=== PATIENT | male | born 1985 | race Caucasian/White ===

== ENCOUNTER 2016-12-16 15:10 | Emergency (ER) | payer SELFPAY ==
[2016-12-16] MEDS ORDERED: NORMAL SALINE 1000 ML 1,000 ML IV ONE (15:57)
[2016-12-16] MEDS ORDERED: PANTOPRAZOLE SODIUM 40 MG VIAL IV ONE (15:58)
--- NOTE | 2016-12-16 16:19 | ER Document Report ---
ED Medical Screen (RME) - General Chief Complaint: Black/Tarry Stools Stated Complaint: VOMITING,DIARRHEA Time Seen by Provider: 12/16/16 15:56 Mode of Arrival: Ambulatory Information source: Patient Notes: This is a 31-year-old male with a prior history of peptic ulcer disease and GI bleed who presents with black diarrhea and also coffee-ground emesis today. He states that yesterday he felt fine and had a normal bowel movement. Since awakening this morning he has had several black bowel movements as well as several episodes of coffee-ground emesis. He also has upper abdominal discomfort. He also feels lightheaded and dizzy when he stands. He states that in June 2014 he had a GI bleed and severe anemia and required 6 units blood transfusion. That was done at [facility]. At this time he takes no antacids or PPIs. He states that he occasionally will take an Aleve and did take Aleve a few days ago. Denies any other NSAIDs. He denies any recent alcohol. I have greeted and performed a rapid initial assessment of this patient. A comprehensive ED assessment and evaluation of the patient, analysis of test results and completion of the medical decision making process will be conducted by additional ED providers. TRAVEL OUTSIDE OF THE [place] IN LAST 30 DAYS: No - Related Data Allergies/Adverse Reactions: No Known Allergies Allergy (Verified 10/27/15 12:39) Past Medical History - Past Medical History Cardiac Medical History: Reports: Hx Hypertension Denies: Hx Heart Attack Pulmonary Medical History: Denies: Hx Asthma, Hx Bronchitis, Hx COPD, Hx Pneumonia Neurological Medical History: Denies: Hx Seizures Renal/ Medical History: Denies: Hx Peritoneal Dialysis GI Medical History: Reports: Hx Gastroesophageal Reflux Disease, Hx Ulcer Musculoskeltal Medical History: Denies Hx Arthritis, Reports Hx Musculoskeletal Trauma Psychiatric Medical History: Reports: Hx Bipolar Disorder, Hx Depression Traumatic Medical History: Reports: Hx Fractures - Immunizations Immunizations up to date: No Hx Diphtheria, Pertussis, Tetanus Vaccination: No Physical Exam - Vital signs Vitals: Temp Pulse Resp BP Pulse Ox 98.9 F 145 H 14 136/82 H 100 12/16/16 15:30 12/16/16 15:30 12/16/16 15:30 12/16/16 15:30 12/16/16 15:30 - General In distress: None Notes: And conversant, no acute distress, somewhat pale. - Respiratory Respiratory status: No respiratory distress Breath sounds: Normal. No: Rales, Rhonchi, Wheezing - Cardiovascular Rhythm: Tachycardia Heart sounds: S1 appreciated, S2 appreciated - Abdominal Inspection: Normal Distension: No distension Bowel sounds: Normal Tenderness: Other - Mild epigastric tenderness to palpation Course - Re-evaluation Re-evalutation: 12/16/16 16:18 Noted to be significantly tachycardic with concern for active GI bleed he was taken straight to a bed on main side ED. - Vital Signs Vital signs: Temp Pulse Resp BP Pulse Ox 98.9 F 145 H 14 136/82 H 100 12/16/16 15:30 12/16/16 15:30 12/16/16 15:30 12/16/16 15:30 12/16/16 15:30
--- NOTE | 2016-12-16 16:23 | ER Document Report ---
ED General - General Chief Complaint: Black/Tarry Stools Stated Complaint: VOMITING,DIARRHEA Time Seen by Provider: 12/16/16 15:56 Mode of Arrival: Ambulatory Information source: Patient Notes: 31-year-old male history of alcohol abuse with GI bleed a few years ago requiring 6 units transfusion presents with complaints of rectal bleeding and vomiting blood. Patient denies any fevers admits to weakness, pt noted dark stools TRAVEL OUTSIDE OF THE [place] IN LAST 30 DAYS: No - HPI Onset: This morning Onset/Duration: Sudden Quality of pain: Cramping Severity: Mild Pain Level: 1 Associated symptoms: Weakness Exacerbated by: Denies Relieved by: Denies Similar symptoms previously: Yes Recently seen / treated by doctor: Yes - Related Data Allergies/Adverse Reactions: No Known Allergies Allergy (Verified 10/27/15 12:39) Past Medical History - General Information source: Patient - Social History Smoking Status: Never Smoker Cigarette use (# per day): No Chew tobacco use (# tins/day): No Smoking Education Provided: No Family History: DM, Hypertension, Other - History of thromboembolic disease - Past Medical History Cardiac Medical History: Reports: Hx Hypertension Denies: Hx Heart Attack Pulmonary Medical History: Denies: Hx Asthma, Hx Bronchitis, Hx COPD, Hx Pneumonia Neurological Medical History: Denies: Hx Seizures Renal/ Medical History: Denies: Hx Peritoneal Dialysis GI Medical History: Reports: Hx Gastroesophageal Reflux Disease, Hx Ulcer Musculoskeltal Medical History: Denies Hx Arthritis, Reports Hx Musculoskeletal Trauma Psychiatric Medical History: Reports: Hx Bipolar Disorder, Hx Depression Traumatic Medical History: Reports: Hx Fractures - Immunizations Immunizations up to date: No Hx Diphtheria, Pertussis, Tetanus Vaccination: No Review of Systems - Review of Systems Notes: PHYSICAL EXAMINATION: GENERAL: Well-appearing, well-nourished and in no acute distress. HEAD: Atraumatic, normocephalic. EYES: Pupils equal round and reactive to light, extraocular movements intact, sclera anicteric, conjunctiva are normal. ENT: Nares patent, oropharynx clear without exudates. Moist mucous membranes. NECK: Normal range of motion, supple without lymphadenopathy LUNGS: Breath sounds clear to auscultation bilaterally and equal. No wheezes rales or rhonchi. HEART: tachycardic 160s ABDOMEN: Soft, nontender, nondistended abdomen. No guarding, no rebound. No masses appreciated. Musculoskeletal: Normal range of motion, no pitting or edema. No cyanosis. NEUROLOGICAL: Cranial nerves grossly intact. Normal speech, normal gait. Normal sensory, motor exams PSYCH: Normal mood, normal affect. SKIN: Warm, Dry, normal turgor, no rashes or lesions noted. Physical Exam - Vital signs Vitals: Temp Pulse Resp BP Pulse Ox 98.9 F 145 H 14 136/82 H 100 12/16/16 15:30 12/16/16 15:30 12/16/16 15:30 12/16/16 15:30 12/16/16 15:30 Course - Re-evaluation Re-evalutation: 12/16/16 16:23 pt having obvious gi bleed given hixstory, 2 L ns bolused emergently, awaiting labs hr is 162 on arrival 12/16/16 16:56 [facility] paged for transfer 3 L of NS have been ordered , hemoccult is positive, protonix bolus and drip started 12/16/16 18:40 GI will consult 12/16/16 18:54 Dr Bocanegra will accept , awaiting room assignment, hr is now 96 - Vital Signs Vital signs: Temp Pulse Resp BP Pulse Ox 98.9 F 145 H 21 H 137/87 H 100 12/16/16 15:30 12/16/16 15:30 12/16/16 17:11 12/16/16 17:11 12/16/16 17:11 - Laboratory Result Diagrams: 12/16/16 16:15 12/16/16 16:15 Laboratory results interpreted by me: 12/16/16 12/16/16 16:15 16:15 WBC 17.9 H Plt Count 477 H Absolute Neutrophils 11.0 H Absolute Lymphocytes 5.4 H Carbon Dioxide 21 L BUN 42 H Calcium 11.1 H Total Protein 9.7 H Albumin 5.8 H Critical Care Note - Critical Care Note Total time excluding time spent on procedures (mins): 33 Comments: 33 minutes of critical care time spent in direct contact evaluating and reevaluating the patient, treating symptoms, reviewing labs and studies and speaking with family and consultants excluding any procedures Discharge - Discharge Clinical Impression: Tachycardia Gastrointestinal hemorrhage Qualifiers: GI bleed type/associated pathology: unspecified gastrointestinal hemorrhage type Qualified Code(s): K92.2 - Gastrointestinal hemorrhage, unspecified Condition: Stable Disposition: [facility]
[2016-12-16 16:29] LABS: ABSOLUTE BASOPHILS # (AUTO) 0.1 10^3/uL (0.0-0.2); ABSOLUTE EOSINOPHILS # (AUTO) 0.1 10^3/uL (0.0-0.6); ABSOLUTE LYMPHOCYTES (AUTO) 5.4 10^3/uL (0.5-4.7); ABSOLUTE MONOCYTES (AUTO) 1.4 10^3/uL (0.1-1.4); BASOPHILS % (AUTO) 0.3 % (0-2); EOSINOPHILS % (AUTO) 0.4 % (0-6); HEMATOCRIT 45.9 % (37.9-51.0); HEMOGLOBIN 15.8 g/dL (13.5-17.0); HGB HCT DIFFERENCE 1.5; LYMPHOCYTES % (AUTO) 29.9 % (13-45); MEAN CORPUSCULAR HEMOGLOBIN 32.5 pg (27.0-33.4); MEAN CORPUSCULAR HGB CONC 34.5 g/dL (32.0-36.0); MEAN CORPUSCULAR VOLUME 94 fl (80-97); MONOCYTES % (AUTO) 7.8 % (3-13); RED BLOOD COUNT 4.86 10^6/uL (4.35-5.55); SEGMENTED NEUTROPHILS % (AUTO) 61.6 % (42-78); WHITE BLOOD COUNT 17.9 10^3/uL (4.0-10.5)
[2016-12-16 16:44] LABS: PROTHROMBIN TIME 13.4 SEC (11.4-15.4)
[2016-12-16 16:53] LABS: ALANINE AMINOTRANSFERASE 32 U/L (21-72); ALBUMIN 5.8 g/dL (3.5-5.0); ALKALINE PHOSPHATASE 52 U/L (38-126); ANION GAP 18 (5-19); ASPARTATE AMINO TRANSFERASE 20 U/L (17-59); BILIRUBIN,DIRECT 0.3 mg/dL (0.0-0.4); BILIRUBIN,TOTAL 1.1 mg/dL (0.2-1.3); BLOOD UREA NITROGEN 42 mg/dL (7-20); CALCIUM 11.1 mg/dL (8.4-10.2); CARBON DIOXIDE 21 mmol/L (22-30); CHLORIDE 106 mmol/L (98-107); CREATININE RESULT 0.98 mg/dL (0.52-1.25); GLUCOSE 102 mg/dL (75-110); LIPASE 69.8 U/L (23-300); SODIUM 144.9 mmol/L (137-145); TOTAL PROTEIN 9.7 g/dL (6.3-8.2)
[2016-12-16] MEDS ORDERED: NORMAL SALINE 1000 ML 1,000 ML IV PRN (18:24)
[2016-12-16 20:04] VITALS: BP 142/96
--- NOTE | 2016-12-17 10:02 | EKG REPORT ---
SEVERITY:- ABNORMAL ECG - FAST SINUS ARRHYTHMIA, RATE [id number] PROBABLE LEFT ATRIAL ABNORMALITY INCOMPLETE RIGHT BUNDLE BRANCH BLOCK : Confirmed by: Светлана Jessica 17-Dec-2016 10:01:50
== END 2016-12-16 20:00 | disposition left against medical advice (07) ==
LOC: ER 15:10
DX: K92.2 Gastrointestinal hemorrhage, unspecified (principal); R00.0 Tachycardia, unspecified; R11.10 Vomiting, unspecified; R19.7 Diarrhea, unspecified; R53.1 Weakness
CPT/HCPCS: 93005; 99285; 96361; 96374; 86900; 86901; 36415; 86850; 83690; 85025; 85610; 85730; 82272; 80053; 93010; S0164; J7030

== ENCOUNTER 2017-01-17 02:33 | Emergency (ER) | payer SELFPAY ==
[2017-01-17 02:46] VITALS: BP 132/79
--- NOTE | 2017-01-17 08:38 | EKG REPORT ---
SEVERITY:- ABNORMAL ECG - SINUS RHYTHM PROBABLE LEFT ATRIAL ABNORMALITY INCOMPLETE RIGHT BUNDLE BRANCH BLOCK : Confirmed by: Светлана Jessica 17-Jan-2017 08:38:02
== END 2017-01-17 04:58 | disposition left against medical advice (07) ==
LOC: ER 02:33
DX: Z53.21 Procedure and treatment not carried out due to patient leaving prior to being seen by health care provider (principal)
CPT/HCPCS: 93005; 93010

== ENCOUNTER 2017-01-31 01:25 | Emergency (ER) | payer SELFPAY ==
[2017-01-31] MEDS ORDERED: NORMAL SALINE 1000 ML 1,000 ML IV ONE (01:47)
[2017-01-31] MEDS ORDERED: KETOROLAC TROMETHAMINE INJ/PF 30 MG/1 ML SDV IV ONE (01:47)
[2017-01-31] MEDS ORDERED: ONDANSETRON HCL INJ/PF 4 MG/2 ML SDV IV ONE (01:48)
--- NOTE | 2017-01-31 01:50 | ER Document Report ---
ED GI/ - General Chief Complaint: Lower Abdominal Pain Stated Complaint: LEFT SIDE PAIN Time Seen by Provider: 01/31/17 01:40 Notes: Patient is a 31-year-old male that comes emergency department for chief complaint of sharp left lower abdominal pain that started earlier tonight. He denies flank pain, nausea, vomiting, dysuria, discharge. He states he had a normal bowel movement earlier today. He denies fever. He denies history of kidney stones. Past medical history of hypertension, takes lisinopril daily. TRAVEL OUTSIDE OF THE [place] IN LAST 30 DAYS: No - Related Data Allergies/Adverse Reactions: No Known Allergies Allergy (Verified 10/27/15 12:39) Past Medical History - General Information source: Patient - Social History Smoking Status: Current Every Day Smoker Drug Abuse: Marijuana Lives with: Spouse/Significant other Family History: DM, Hypertension, Other - History of thromboembolic disease - Past Medical History Cardiac Medical History: Reports: Hx Hypertension Denies: Hx Heart Attack Pulmonary Medical History: Denies: Hx Asthma, Hx Bronchitis, Hx COPD, Hx Pneumonia Neurological Medical History: Denies: Hx Seizures Renal/ Medical History: Denies: Hx Peritoneal Dialysis GI Medical History: Reports: Hx Gastroesophageal Reflux Disease, Hx Ulcer Musculoskeltal Medical History: Denies Hx Arthritis, Reports Hx Musculoskeletal Trauma Psychiatric Medical History: Reports: Hx Bipolar Disorder, Hx Depression Traumatic Medical History: Reports: Hx Fractures - Immunizations Immunizations up to date: No Hx Diphtheria, Pertussis, Tetanus Vaccination: No Review of Systems - Review of Systems Constitutional: No symptoms reported EENT: No symptoms reported Cardiovascular: No symptoms reported Respiratory: No symptoms reported Gastrointestinal: See HPI Genitourinary: See HPI Male Genitourinary: No symptoms reported Musculoskeletal: No symptoms reported Skin: No symptoms reported Hematologic/Lymphatic: No symptoms reported Neurological/Psychological: No symptoms reported Physical Exam - Vital signs Vitals: Temp Pulse Resp BP Pulse Ox 98.9 F 99 20 124/80 99 01/31/17 01:30 01/31/17 01:30 01/31/17 01:30 01/31/17 01:30 01/31/17 01:30 Interpretation: Normal - General General appearance: Appears well, Alert - HEENT Head: Normocephalic, Atraumatic Eyes: Normal Pupils: PERRL - Respiratory Respiratory status: No respiratory distress Chest status: Nontender Breath sounds: Normal. No: Decreased air movement, Wheezing Chest palpation: Normal - Cardiovascular Rhythm: Regular. No: Tachycardia Heart sounds: Normal auscultation, S1 appreciated, S2 appreciated Murmur: No - Abdominal Inspection: Normal Distension: No distension Bowel sounds: Normal Tenderness: Tender - There is mild tenderness in the mid to left lower abdomen, no guarding, rigidity, or rebound tenderness Organomegaly: No organomegaly - Back Back: Normal, Nontender. No: Tender, CVA tenderness - Extremities General upper extremity: Normal inspection, Nontender, Normal color, Normal ROM , Normal temperature General lower extremity: Normal inspection, Nontender, Normal color, Normal ROM , Normal temperature, Normal weight bearing. No: Faisal's sign - Neurological Neuro grossly intact: Yes Cognition: Normal Orientation: AAOx4 Ernie Coma Scale Eye Opening: Spontaneous Ernie Coma Scale Verbal: Oriented Ernie Coma Scale Motor: Obeys Commands [place] Coma Scale Total: 15 Speech: Normal Motor strength normal: LUE, RUE, LLE, RLE Sensory: Normal - Psychological Associated symptoms: Normal affect, Normal mood - Skin Skin Temperature: Warm Skin Moisture: Dry Skin Color: Normal Course - Re-evaluation Re-evalutation: Patient also adds that he abuses [id number] medications, states he took 7 guaifenesin early this morning, but only took 50 mg of Benadryl tonight. He states he does this on a regular basis. He denies any other drug use except marijuana. Abdominal exam is unremarkable, no guarding, no rigidity, no evidence of acute abdomen. Tenderness is in the left lower quadrant and is mild. CBC, chemistry unremarkable, urinalysis did not show evidence of stone. Very low suspicion of any acute abnormality. Patient sleeping after given Toradol, IV fluids, Zofran. After he woke up he states he does feel better. Discussed potential risks of abusing [id number] medications or prescription medications, patient states he understands the risk that he will only take the prescribed doses. Asymptomatic on re-evaluation. Unsure of exact cause of symptoms, could be related to medications, either way no evidence of acute abdomen at this time. Discussed follow-up, return precautions, patient states understanding and agreement. - Vital Signs Vital signs: Temp Pulse Resp BP Pulse Ox 97.5 F 96 18 118/76 97 01/31/17 03:47 01/31/17 03:47 07/14/17 03:47 01/31/17 03:47 01/31/17 03:47 - Laboratory Result Diagrams: 01/31/17 02:10 01/31/17 02:10 Laboratory results interpreted by me: 01/31/17 02:10 Chloride 112 H Carbon Dioxide 19 L Discharge - Discharge Clinical Impression: Abdominal pain Qualifiers: Abdominal location: lower abdomen, unspecified Qualified Code(s): R10.30 - Lower abdominal pain, unspecified Condition: Stable Disposition: HOME, SELF-CARE Additional Instructions: No concerning abnormalities are found on your workup and examination tonight. Do not take more than recommended doses on any medication, prescribed or over the counter. Follow up with Primary Care. Return to the ED for any concerning symptoms - returned or worsening abdominal pain, vomiting, etc.
[2017-01-31 02:28] LABS: ABSOLUTE EOSINOPHILS # (AUTO) 0.2 10^3/uL (0.0-0.6); ABSOLUTE LYMPHOCYTES (AUTO) 3.5 10^3/uL (0.5-4.7); ABSOLUTE NEUT (AUTO) 5.2 10^3/uL (1.7-8.2); BASOPHILS % (AUTO) 0.5 % (0-2); EOSINOPHILS % (AUTO) 2.1 % (0-6); HEMATOCRIT 43.8 % (37.9-51.0); HEMOGLOBIN 14.3 g/dL (13.5-17.0); HGB HCT DIFFERENCE -0.9; LYMPHOCYTES % (AUTO) 35.2 % (13-45); MEAN CORPUSCULAR HEMOGLOBIN 30.9 pg (27.0-33.4); MEAN CORPUSCULAR HGB CONC 32.7 g/dL (32.0-36.0); MEAN CORPUSCULAR VOLUME 94 fl (80-97); RED BLOOD COUNT 4.64 10^6/uL (4.35-5.55); RED CELL DISTRIBUTION WIDTH 12.3 % (11.5-14.0); SEGMENTED NEUTROPHILS % (AUTO) 52.2 % (42-78); WHITE BLOOD COUNT 9.9 10^3/uL (4.0-10.5)
[2017-01-31 02:38] LABS: APPEARANCE,URINE CLEAR; BILIRUBIN,URINE NEGATIVE (NEGATIVE); GLUCOSE, URINE NEGATIVE (NEGATIVE); KETONES,URINE NEGATIVE (NEGATIVE); LEUKOCYTE ESTERASE,URINE NEGATIVE (NEGATIVE); NITRITE,URINE NEGATIVE (NEGATIVE); PROTEIN,URINE NEGATIVE (NEGATIVE); URINE SPECIFIC GRAVITY 1.005; UROBILINOGEN,URINE NEGATIVE mg/dL (<2.0)
[2017-01-31 02:41] LABS: ALANINE AMINOTRANSFERASE 39 U/L (21-72); ALBUMIN 4.3 g/dL (3.5-5.0); ALKALINE PHOSPHATASE 78 U/L (38-126); ANION GAP 6 (5-19); ASPARTATE AMINO TRANSFERASE 22 U/L (17-59); BILIRUBIN,DIRECT 0.3 mg/dL (0.0-0.4); BILIRUBIN,TOTAL 0.4 mg/dL (0.2-1.3); BLOOD UREA NITROGEN 10 mg/dL (7-20); CALCIUM 9.6 mg/dL (8.4-10.2); CARBON DIOXIDE 19 mmol/L (22-30); CHLORIDE 112 mmol/L (98-107); GLUCOSE 84 mg/dL (75-110); POTASSIUM 4.6 mmol/L (3.6-5.0); SODIUM 137.3 mmol/L (137-145); TOTAL PROTEIN 7.2 g/dL (6.3-8.2)
[2017-01-31 03:49] VITALS: BP 118/76
== END 2017-01-31 03:47 | disposition home or self-care (01) ==
LOC: ER 01:25
DX: R10.32 Left lower quadrant pain (principal); F17.200 Nicotine dependence, unspecified, uncomplicated; I10 Essential (primary) hypertension
CPT/HCPCS: 99284; 96361; 96374; 96375; 36415; 85025; 80053; 81001; J1885; J2405; J7030

== ENCOUNTER 2017-02-13 19:32 | Emergency (ER) | payer SELFPAY ==
[2017-02-13] MEDS ORDERED: PROCHLORPERAZINE EDISYLATE INJ 10 MG/2 ML VIAL IV ONE (20:45)
[2017-02-13] MEDS ORDERED: DIPHENHYDRAMINE HCL 50 MG/ML VIAL IV ONE (20:46)
[2017-02-13] MEDS ORDERED: KETOROLAC TROMETHAMINE INJ/PF 30 MG/1 ML SDV IV ONE (20:46)
--- NOTE | 2017-02-13 20:47 | ER Document Report ---
ED Headache - General Chief Complaint: Headache Stated Complaint: HEADACHE Time Seen by Provider: 02/13/17 19:57 Notes: Patient is a 31-year-old male without significant past medical history who presents with acute onset of a headache. Patient is a very poor historian, often does not directly answer questions. He states that today he had an acute onset of feeling like something "popped in the back of my head". States this started immediately prior to him coming to the emergency department, approximately 1-1/2-2 hours prior to my assessment. He denies history of similar symptoms in the past. At this time he notes a dull, constant aching pain to the left temporal parietal area of his scalp. Nothing improves or worsens his pain. He has not seen a primary doctor regarding today's concerns. He denies any associated nausea, vomiting, fever or neck pain. TRAVEL OUTSIDE OF THE [place] IN LAST 30 DAYS: No - Related Data Allergies/Adverse Reactions: No Known Allergies Allergy (Verified 10/27/15 12:39) Past Medical History - General Information source: Patient - Social History Smoking Status: Current Every Day Smoker Frequency of alcohol use: None Drug Abuse: Marijuana Lives with: Alone Family History: DM, Hypertension, Other - History of thromboembolic disease - Past Medical History Cardiac Medical History: Reports: Hx Hypertension Denies: Hx Heart Attack Pulmonary Medical History: Denies: Hx Asthma, Hx Bronchitis, Hx COPD, Hx Pneumonia Neurological Medical History: Denies: Hx Seizures Renal/ Medical History: Denies: Hx Peritoneal Dialysis GI Medical History: Reports: Hx Gastroesophageal Reflux Disease, Hx Ulcer Musculoskeltal Medical History: Denies Hx Arthritis, Reports Hx Musculoskeletal Trauma Psychiatric Medical History: Reports: Hx Bipolar Disorder, Hx Depression Traumatic Medical History: Reports: Hx Fractures - Immunizations Immunizations up to date: No Hx Diphtheria, Pertussis, Tetanus Vaccination: No Review of Systems - Review of Systems Notes: Constitutional: Negative for fever. HENT: Negative for sore throat. Eyes: Negative for visual changes. Cardiovascular: Negative for chest pain. Respiratory: Negative for shortness of breath. Gastrointestinal: Negative for abdominal pain, vomiting or diarrhea. Genitourinary: Negative for dysuria. Musculoskeletal: Negative for back pain. Skin: Negative for rash. Neurological: Positive for headaches, negative for weakness or numbness. 10 point ROS negative except as marked above and in HPI. Physical Exam - Vital signs Vitals: Temp Pulse Resp BP Pulse Ox 98.8 F 116 H 17 123/93 H 97 02/13/17 19:49 02/13/17 19:49 02/13/17 19:49 02/13/17 19:49 02/13/17 19:49 Interpretation: Tachycardic Notes: PHYSICAL EXAMINATION: GENERAL: Well-appearing, well-nourished and in no acute distress. HEAD: Atraumatic, normocephalic. EYES: Pupils equal round and reactive to light, extraocular movements intact, sclera anicteric, conjunctiva are normal. ENT: nares patent, oropharynx clear without exudates. Moist mucous membranes. NECK: Normal range of motion, supple without lymphadenopathy LUNGS: Breath sounds clear to auscultation bilaterally and equal. No wheezes rales or rhonchi. HEART: Regular rate and rhythm without murmurs ABDOMEN: Soft, nontender, normoactive bowel sounds. No guarding, no rebound. No masses appreciated. EXTREMITIES: Normal range of motion, no pitting or edema. No cyanosis. NEUROLOGICAL: Face symmetric. Tongue protrudes midline. Extraocular motions intact. Pupils are 2 mm and equally reactive. Normal speech, normal gait. 5 out of 5 strength in both the distal and proximal upper and lower extremities bilaterally. Sensation is grossly intact throughout. Finger to nose testing normal. Pronator drift normal. PSYCH: Blunt affect, tangential historian SKIN: Warm, Dry, normal turgor, no rashes or lesions noted. Course - Re-evaluation Re-evalutation: 02/13/17 20:46 Patient is a very poor historian who complains of an acute onset of a headache. He is very difficult to obtain history from, does not directly answer my questions but it appears that the headache did reach maximal intensity within several minutes. He denies a headache similar to this in the past although does not appear to be in any significant amount of distress. He has no focal neurologic deficits on examination. Given his report, will obtain a stat CT of the head. If this is negative I will not pursue lumbar puncture as patient reports that his symptoms started less than 2 hours prior to arrival in the emergency department and he called EMS immediately after onset making a sensitivity of the CT scan acceptable to exclude a subarachnoid hemorrhage. If this is normal will treat with a migraine cocktail and reassess. 02/13/17 21:53 Patient has had relief of his headache. Head CT is normal. He remains without any neurologic. At this time will discharge with return precautions and follow- up recommendations. Verbal discharge instructions given a the bedside and opportunity for questions given. Medication warnings reviewed. Patient is in agreement with this plan and has verbalized understanding of return precautions and the need for primary care follow-up in the next 24-72 hours. - Vital Signs Vital signs: Temp Pulse Resp BP Pulse Ox 98.3 F 116 H 19 107/78 99 02/13/17 21:56 02/13/17 19:49 02/13/17 22:01 02/13/17 21:56 02/13/17 22:01 - Diagnostic Test Radiology reviewed: Image reviewed, Reports reviewed Radiology results interpreted by me: 02/13/17 21:53 CT head: No acute intracranial bleed Discharge - Discharge Clinical Impression: Headache Qualifiers: Headache type: unspecified Headache chronicity pattern: acute headache Intractability: not intractable Qualified Code(s): R51 - Headache Condition: Good Disposition: HOME, SELF-CARE Additional Instructions: You have been seen in the Emergency Department (ED) for a headache. Please use Tylenol (acetaminophen) or Motrin (ibuprofen) as needed for symptoms, but only as written on the box. As we have discussed, please follow up with your primary care doctor as soon as possible regarding today's ED visit and your headache symptoms. Call your doctor or return to the ED if you have a worsening headache, sudden and severe headache, confusion, slurred speech, facial droop, weakness or numbness in any arm or leg, extreme fatigue, or other symptoms that concern you.
--- NOTE | 2017-02-13 21:35 | RADIOLOGY REPORT (SQ) ---
EXAM DESCRIPTION: CT HEAD WITHOUT COMPLETED DATE/TIME: 02/13/2017 9:05 pm REASON FOR STUDY: headache COMPARISON: August 2014 TECHNIQUE: Axial images acquired through the brain without intravenous contrast. Images reviewed wi th bone, brain and subdural windows. Images stored on PACS. All CT scanners at this facility use dose modulation, iterative reconstruction, and/or weight based d osing when appropriate to reduce radiation dose to as low as reasonably achievable (ALARA). [facility]: Dose Right [facility]: CareDose [facility]: Dose Right [facility]: Teradose 4D [facility]: Magiq RADIATION DOSE: Up-to-date CT equipment and radiation dose reduction techniques were employed. CTDIv ol: 49.0 mGy. DLP: 881 mGy-cm. mGy. LIMITATIONS: None. FINDINGS: VENTRICLES: Normal size and contour. CEREBRUM: No masses. No hemorrhage. No midline shift. Normal beckham/white matter differentiation. N o evidence for acute infarction. CEREBELLUM: No masses. No hemorrhage. No alteration of density. No evidence for acute infarction. EXTRAAXIAL SPACES: No fluid collections. No masses. ORBITS AND GLOBE: No intra- or extraconal masses. Normal contour of globe without masses. CALVARIUM: No fracture. PARANASAL SINUSES: No fluid or mucosal thickening. SOFT TISSUES: No mass or hematoma. OTHER: No other significant finding. IMPRESSION: NORMAL BRAIN CT WITHOUT CONTRAST. TECHNICAL DOCUMENTATION: JOB ID: [id number] Quality ID # [id number]: Final reports with documentation of one or more dose reduction techniques (e.g., Au tomated exposure control, adjustment of the mA and/or kV according to patient size, use of iterative reconstruction technique) 2010 [employer]- All Rights Reserved
[2017-02-13 22:33] VITALS: BP 107/78
== END 2017-02-13 22:22 | disposition home or self-care (01) ==
LOC: ER 19:32
DX: R51 Headache (principal); F17.200 Nicotine dependence, unspecified, uncomplicated
CPT/HCPCS: 99284; 96374; 96375; 70450; J1200; J1885; J0780

== ENCOUNTER 2017-02-23 01:58 | Emergency (ER) | payer SELFPAY ==
[2017-02-23 02:51] LABS: ABSOLUTE EOSINOPHILS # (AUTO) 0.2 10^3/uL (0.0-0.6); ABSOLUTE LYMPHOCYTES (AUTO) 3.9 10^3/uL (0.5-4.7); ABSOLUTE MONOCYTES (AUTO) 1.3 10^3/uL (0.1-1.4); ABSOLUTE NEUT (AUTO) 5.5 10^3/uL (1.7-8.2); BASOPHILS % (AUTO) 0.4 % (0-2); EOSINOPHILS % (AUTO) 2.3 % (0-6); HEMOGLOBIN 16.4 g/dL (13.5-17.0); HGB HCT DIFFERENCE 1.2; LYMPHOCYTES % (AUTO) 35.8 % (13-45); MEAN CORPUSCULAR HGB CONC 34.2 g/dL (32.0-36.0); MEAN CORPUSCULAR VOLUME 94 fl (80-97); MONOCYTES % (AUTO) 11.5 % (3-13); RED BLOOD COUNT 5.13 10^6/uL (4.35-5.55)
[2017-02-23] MEDS ORDERED: NORMAL SALINE 1000 ML 1,000 ML IV ONE (02:52)
--- NOTE | 2017-02-23 02:52 | ER Document Report ---
ED GI/ - General Mode of Arrival: Ambulatory Information source: Patient TRAVEL OUTSIDE OF THE [place] IN LAST 30 DAYS: No - HPI Patient complains to provider of: Other <ABRAHAM DOOLEY - Last Filed: 02/23/17 05:33> <EKATERINA FALL - Last Filed: 02/23/17 05:50> - General Chief Complaint: Drug Abuse Stated Complaint: ABDOMINAL PAIN Time Seen by Provider: 02/23/17 02:34 Notes: Patient is a 31 year old male that presents to the emergency department today with complaints of abdominal pain. Patient admits to consuming large amounts of dextromethorphan and benadryl on a regular basis to get high. Patient states he did that today prior to this abdominal pain. Patient states that he has also noticed traces of bloody stool on toilet paper during bowel movements. Patient denies vomiting. (ABRAHAM DOOLEY) - Related Data Allergies/Adverse Reactions: No Known Allergies Allergy (Verified 10/27/15 12:39) Past Medical History - General Information source: Patient - Social History Smoking Status: Current Every Day Smoker Cigarette use (# per day): Yes Chew tobacco use (# tins/day): No Frequency of alcohol use: None Drug Abuse: Other - Dextromethorphan, benadryl Lives with: Family Family History: Reviewed & Not Pertinent, DM, Hypertension, Other - History of thromboembolic disease - Past Medical History Cardiac Medical History: Reports: Hx Hypertension GI Medical History: Reports: Hx Gastroesophageal Reflux Disease, Hx Ulcer Musculoskeltal Medical History: Reports Hx Musculoskeletal Trauma Psychiatric Medical History: Reports: Hx Bipolar Disorder, Hx Depression Traumatic Medical History: Reports: Hx Fractures - Immunizations Immunizations up to date: No Hx Diphtheria, Pertussis, Tetanus Vaccination: No <ABRAHAM DOOLEY - Last Filed: 02/23/17 05:33> Review of Systems - Review of Systems Constitutional: No symptoms reported EENT: No symptoms reported Cardiovascular: No symptoms reported Respiratory: No symptoms reported Gastrointestinal: See HPI, Abdominal pain, Blood streaked bowels. denies: Vomiting Genitourinary: No symptoms reported Male Genitourinary: No symptoms reported Musculoskeletal: No symptoms reported Skin: No symptoms reported Hematologic/Lymphatic: No symptoms reported Neurological/Psychological: No symptoms reported -: Yes All other systems reviewed and negative <ABRAHAM DOOLEY - Last Filed: 02/23/17 05:33> Physical Exam <ABRAHAM DOOLEY - Last Filed: 02/23/17 05:33> <EKATERINA FALL - Last Filed: 02/23/17 05:50> - Vital signs Vitals: Temp Resp Pulse Ox 98.1 F 17 99 02/23/17 02:26 02/23/17 02:26 02/23/17 02:26 - Notes Notes: PHYSICAL EXAM GENERAL: Alert, interacts well. No acute distress. HEAD: Normocephalic, atraumatic. EYES: Pupils equal, round, and reactive to light. Extraocular movements intact. Rotatory nystagmus. ENT: Oral mucosa moist, tongue midline. NECK: Full range of motion. Supple. Trachea midline. LUNGS: Clear to auscultation bilaterally, no wheezes, rales, or rhonchi. No respiratory distress. HEART: Mildly tachycardic, regular rhythm. No murmurs, gallops, or rubs. ABDOMEN: Mild left upper quadrant and epigastric tenderness with palpation. Non- distended. Bowel sounds present in all 4 quadrants. EXTREMITIES: Moves all 4 extremities spontaneously. No edema, radial and dorsalis pedis pulses 2/4 bilaterally. No cyanosis. NEUROLOGICAL: Alert and oriented x3. Normal speech. PSYCH: Normal affect, normal mood. SKIN: Warm, dry, normal turgor. No rashes or lesions noted. (MIAHABRAHAM) Course - Laboratory Result Diagrams: 02/23/17 02:30 02/23/17 02:30 <ABRAHAM DOOLEY - Last Filed: 02/23/17 05:33> - Laboratory Result Diagrams: 02/23/17 02:30 02/23/17 02:30 <EKATERINA FALL - Last Filed: 02/23/17 05:50> - Re-evaluation Re-evalutation: 02/23/17 05:47 CBC shows mild leukocytosis, CMP shows dehydration with a CO2 of 18 which is not surprising given his habit of using large amounts of dextromethorphan and Benadryl on a regular basis, lipase normal, urinalysis unremarkable, urine drug screen shows opiates PCP and marijuana, salicylates, acetaminophen and alcohol are all undetectable. After a period of rest, observation and hydration patient feels much better, he has been able to urinate without difficulty, nystagmus has resolved as has abdominal pain without any other interventions. Patient requests information on rehab as an outpatient, will be referred to [facility] and discharged to home. (EKATERINA FALL) - Vital Signs Vital signs: Temp Pulse Resp BP Pulse Ox 98.1 F 19 111/76 97 02/23/17 02:26 02/23/17 05:01 02/23/17 05:01 02/23/17 05:01 - Laboratory Laboratory results interpreted by me: 02/23/17 02/23/17 02:30 02:30 WBC 11.0 H Chloride 117 H Carbon Dioxide 18 L AST 16 L Salicylates < 1.0 L Acetaminophen < 10 L - EKG Interpretation by Me Additional EKG results interpreted by me: 02/23/17 05:48 EKG shows sinus tachycardia at a rate of 100, incomplete right bundle branch block, no ST segment elevations or depressions per my interpretation. (EKATERINA FALL) Discharge <ABRAHAM DOOLEY - Last Filed: 02/23/17 05:33> <EKATERINA FALL - Last Filed: 02/23/17 05:50> - Discharge Clinical Impression: Epigastric abdominal pain of unknown etiology Dextromethorphan overdose Qualifiers: Encounter type: initial encounter Injury intent: intentional self-harm Qualified Code(s): T48.3X2A - Poisoning by antitussives, intentional self-harm, initial encounter Diphenhydramine overdose Qualifiers: Encounter type: initial encounter Injury intent: intentional self-harm Qualified Code(s): T45.0X2A - Poisoning by antiallergic and antiemetic drugs, intentional self-harm, initial encounter Condition: Stable Disposition: HOME, SELF-CARE Additional Instructions: Please stop abusing medications, these can damage your heart. If you decide you would like help getting off drugs please follow-up with [facility]. Referrals: [facility] [Provider Group] - Follow up as needed Scribe Attestation: 02/23/17 05:50 I personally performed the services described in the documentation, reviewed and edited the documentation which was dictated to the scribe in my presence, and it accurately records my words and actions. (EKATERINA FALL) Scribe Documentation - Scribe Written by Scribe:: Robert Mayo, 02/23/2017 0542 acting as scribe for :: Maciej <ABRAHAM DOOLEY - Last Filed: 02/23/17 05:33>
[2017-02-23 03:18] LABS: ALANINE AMINOTRANSFERASE 31 U/L (21-72); ALBUMIN 4.8 g/dL (3.5-5.0); ALKALINE PHOSPHATASE 75 U/L (38-126); ANION GAP 7 (5-19); ASPARTATE AMINO TRANSFERASE 16 U/L (17-59); BILIRUBIN,DIRECT 0.3 mg/dL (0.0-0.4); BILIRUBIN,TOTAL 0.4 mg/dL (0.2-1.3); BLOOD UREA NITROGEN 12 mg/dL (7-20); CARBON DIOXIDE 18 mmol/L (22-30); CHLORIDE 117 mmol/L (98-107); CREATININE RESULT 1.13 mg/dL (0.52-1.25); GLUCOSE 109 mg/dL (75-110); POTASSIUM 4.4 mmol/L (3.6-5.0); SODIUM 142.4 mmol/L (137-145); TOTAL PROTEIN 7.9 g/dL (6.3-8.2)
[2017-02-23 03:19] LABS: ALCOHOL < 10 mg/dL (NONE DETECTED)
[2017-02-23 03:31] LABS: APPEARANCE,URINE CLEAR; BILIRUBIN,URINE NEGATIVE (NEGATIVE); GLUCOSE, URINE NEGATIVE (NEGATIVE); KETONES,URINE NEGATIVE (NEGATIVE); LEUKOCYTE ESTERASE,URINE NEGATIVE (NEGATIVE); NITRITE,URINE NEGATIVE (NEGATIVE); PROTEIN,URINE NEGATIVE (NEGATIVE); UROBILINOGEN,URINE NEGATIVE mg/dL (<2.0)
[2017-02-23 03:44] LABS: URINE BARBITURATES SCREEN NEGATIVE; URINE METHADONE SCREEN NEGATIVE; URINE OPIATES LOW UNCONFIRMED POSITIVE; URINE PHENCYCLIDINE SCREEN UNCONFIRMED POSITIVE
[2017-02-23 06:10] VITALS: BP 107/81
--- NOTE | 2017-02-23 08:06 | EKG REPORT ---
SEVERITY:- ABNORMAL ECG - SINUS TACHYCARDIA LEFT ATRIAL ABNORMALITY INCOMPLETE RIGHT BUNDLE BRANCH BLOCK : Confirmed by: David Stern MD 23-Feb-2017 08:05:50
== END 2017-02-23 06:20 | disposition home or self-care (01) ==
LOC: ER 01:58
DX: T48.3X2A Poisoning by antitussives, intentional self-harm, initial encounter (principal); T45.0X2A Poisoning by antiallergic and antiemetic drugs, intentional self-harm, initial encounter; E86.0 Dehydration; H55.00 Unspecified nystagmus; D72.829 Elevated white blood cell count, unspecified; R10.13 Epigastric pain; K92.1 Melena; R00.0 Tachycardia, unspecified; F17.210 Nicotine dependence, cigarettes, uncomplicated; I45.10 Unspecified right bundle-branch block; I10 Essential (primary) hypertension; Z87.19 Personal history of other diseases of the digestive system
CPT/HCPCS: 93005; 99284; 96360; 36415; 80307 ×4; 83690; 85025; 80053; 81001; 93010; J7030

== ENCOUNTER 2017-03-02 22:59 | Emergency (ER) | payer SELFPAY ==
--- NOTE | 2017-03-02 23:16 | ER Document Report ---
ED Substance Abuse / Acc. 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 He took 600 mg dextromethorphan 15 hours ago, 50 mg Benadryl 2 hours ago and smoked weed just prior to arrival. He said that this is strictly for recreational purposes and he does not want to hurt himself. [facility], but he is no longer going there. He has had multiple ER visits for similar ingestions of substances and he is often observed and discharged home. He denies chest pain, nausea, vomiting, abdominal pain, fevers, leg swelling, cough, back pain or headache. TRAVEL OUTSIDE OF THE [place] IN LAST 30 DAYS: No - Related Data Allergies/Adverse Reactions: No Known Allergies Allergy (Verified 10/27/15 12:39) Past Medical History - General Information source: Patient - Social History Smoking Status: Current Every Day Smoker Drug Abuse: Marijuana, Prescription drugs Family History: Reviewed & Not Pertinent, DM, Hypertension, Other - History of thromboembolic disease - Past Medical History Cardiac Medical History: Reports: Hx Hypertension Denies: Hx Heart Attack Pulmonary Medical History: Denies: Hx Asthma, Hx Bronchitis, Hx COPD, Hx Pneumonia Neurological Medical History: Denies: Hx Seizures Renal/ Medical History: Denies: Hx Peritoneal Dialysis GI Medical History: Reports: Hx Gastroesophageal Reflux Disease, Hx Ulcer Musculoskeltal Medical History: Denies Hx Arthritis, Reports Hx Musculoskeletal Trauma Psychiatric Medical History: Reports: Hx Bipolar Disorder, Hx Depression Traumatic Medical History: Reports: Hx Fractures - Immunizations Immunizations up to date: No Hx Diphtheria, Pertussis, Tetanus Vaccination: No Review of Systems - Review of Systems Notes: REVIEW OF SYSTEMS: CONSTITUTIONAL: -fevers, -chills EENT: -eye pain, -difficulty swallowing, -nasal congestion CARDIOVASCULAR:-chest pain, -syncope. RESPIRATORY: -cough, -SOB GASTROINTESTINAL: -abdominal pain, - nausea, -vomiting, -diarrhea GENITOURINARY: -dysuria, -hematuria MUSCULOSKELETAL: -back pain, -neck pain SKIN: -rash or skin lesions. HEMATOLOGIC: -easy bruising or bleeding. LYMPHATIC: -swollen, enlarged glands. NEUROLOGICAL: -altered mental status or loss of consciousness, -headache, - neurologic symptoms PSYCHIATRIC: -anxiety, -depression, +substance abuse ALL OTHER SYSTEMS REVIEWED AND NEGATIVE. Physical Exam - Vital signs Vitals: Resp BP Pulse Ox 24 H 150/104 H 96 03/02/17 23:04 03/02/17 23:04 03/02/17 23:04 - Notes Notes: PHYSICAL EXAMINATION: GENERAL: Well-appearing, well-nourished and in no acute distress. HEAD: Atraumatic, normocephalic. EYES: Pupils equal round and reactive to light, extraocular movements intact, sclera anicteric, conjunctiva are normal. ENT: nares patent, oropharynx clear without exudates. Moist mucous membranes. NECK: Normal range of motion, supple without lymphadenopathy LUNGS: Breath sounds clear to auscultation bilaterally and equal. No wheezes rales or rhonchi. HEART: Tachycardia. ABDOMEN: Soft, nontender, normoactive bowel sounds. No guarding, no rebound. No masses appreciated. EXTREMITIES: Normal range of motion, no pitting or edema. No cyanosis. NEUROLOGICAL: Cranial nerves grossly intact. Normal speech, normal gait. Normal sensory and motor exams. PSYCH: Normal mood, normal affect. SKIN: Warm, Dry, normal turgor, no rashes or lesions noted. Course - Re-evaluation Re-evalutation: Patient repeatedly denies any suicidal ideation and said that he only takes dextromethorphan and Benadryl to get high and because he is addicted. RUSSELL Bennett, spoke to poison control and they recommend supportive care with IV fluids and to monitor for urinary retention or altered mental status. Patient's tachycardia resolved after IV fluids and he feels much better. Once again, provided referral to [facility] for substance abuse counseling and detox. Given return precautions and he understands. - Vital Signs Vital signs: Temp Pulse Resp BP Pulse Ox 99.1 F 23 H 129/97 H 98 03/02/17 23:06 03/03/17 00:01 03/03/17 00:01 03/03/17 00:01 - Laboratory Result Diagrams: 03/02/17 23:28 03/02/17 23:28 Laboratory results interpreted by me: 03/02/17 23:28 Chloride 112 H Carbon Dioxide 16 L Direct Bilirubin 0.6 H Salicylates < 1.0 L Acetaminophen < 10 L - EKG Interpretation by Me EKG shows normal: Sinus rhythm, [place], Intervals, QRS Complexes, ST-T Waves Rate: Tachycardia [place]/QRS: RBBB When compared to previous EKG there are: No significant change Discharge - Discharge Clinical Impression: Substance abuse or dependence Condition: Stable Disposition: HOME, SELF-CARE Additional Instructions: OVERDOSE / INGESTION: You have taken more medication than you should have. After your evaluation and care, it is felt that your overdose is not likely to be harmful or of any significant consequences to you and you are being discharged. In the future, you should be careful not to take more medications than what is prescribed for you. Although your overdose does not seem to be of any danger to you at this time, if you develop any unusual or unexpected symptoms after your discharge, you should return to the Emergency Department immediately for re-evaluation. INSTRUCTIONS FOR HOME CARE FOLLOWING DRUG OVERDOSAGE: The doctor feels it's safe for you to go home. You will need to be observed. If charcoal and a laxative was given to you, expect some loose black stools soon. Take no medications unless approved by a physician, including alcohol. If drowsy, lie on your stomach or side for sleeping to avoid aspiration if vomiting occurs. Take only liquids by mouth until there is no more nausea. FOR THE OBSERVER: Observe the patient for the next 24 hours and call or go to the hospital if any of the following are noted: prolonged or repeated vomiting, difficulty in arousing, convulsions (seizures or fits), fever, persistent cough, breathing that is too slow or too rapid, or confused or bizarre behavior. If a counselling visit has been arranged, make sure the patient attends. Call the physician or poison control if you have questions. FOLLOW-UP CARE: If you have been referred to a physician for follow-up care, call the physician s office for an appointment as you were instructed or within the next two days. If you experience worsening or a significant change in your symptoms, notify the physician immediately or return to the Emergency Department at any time for re-evaluation. Referrals: [facility] [Outside] - Follow up as needed
--- NOTE | 2017-03-02 23:20 | EKG REPORT ---
SEVERITY:- ABNORMAL ECG - SINUS TACHYCARDIA MIKHAIL, CONSIDER BIATRIAL ABNORMALITIES INCOMPLETE RIGHT BUNDLE BRANCH BLOCK : Confirmed by: Светлана Jessica 02-Mar-2017 23:19:32
[2017-03-02 23:40] LABS: ABSOLUTE EOSINOPHILS # (AUTO) 0.1 10^3/uL (0.0-0.6); ABSOLUTE LYMPHOCYTES (AUTO) 2.5 10^3/uL (0.5-4.7); ABSOLUTE MONOCYTES (AUTO) 0.8 10^3/uL (0.1-1.4); ABSOLUTE NEUT (AUTO) 6.7 10^3/uL (1.7-8.2); BASOPHILS % (AUTO) 0.5 % (0-2); EOSINOPHILS % (AUTO) 1.2 % (0-6); HEMATOCRIT 44.7 % (37.9-51.0); HEMOGLOBIN 15.4 g/dL (13.5-17.0); HGB HCT DIFFERENCE 1.5; LYMPHOCYTES % (AUTO) 24.8 % (13-45); MEAN CORPUSCULAR HGB CONC 34.5 g/dL (32.0-36.0); MEAN CORPUSCULAR VOLUME 93 fl (80-97); MONOCYTES % (AUTO) 7.8 % (3-13); RED BLOOD COUNT 4.82 10^6/uL (4.35-5.55); SEGMENTED NEUTROPHILS % (AUTO) 65.7 % (42-78); WHITE BLOOD COUNT 10.3 10^3/uL (4.0-10.5)
[2017-03-02 23:53] LABS: ALANINE AMINOTRANSFERASE 32 U/L (21-72); ALBUMIN 4.7 g/dL (3.5-5.0); ALKALINE PHOSPHATASE 70 U/L (38-126); ANION GAP 12 (5-19); ASPARTATE AMINO TRANSFERASE 21 U/L (17-59); BILIRUBIN,DIRECT 0.6 mg/dL (0.0-0.4); BILIRUBIN,TOTAL 0.6 mg/dL (0.2-1.3); BLOOD UREA NITROGEN 14 mg/dL (7-20); CALCIUM 9.5 mg/dL (8.4-10.2); CARBON DIOXIDE 16 mmol/L (22-30); CHLORIDE 112 mmol/L (98-107); CREATININE RESULT 1.03 mg/dL (0.52-1.25); GLUCOSE 93 mg/dL (75-110); POTASSIUM 4.1 mmol/L (3.6-5.0); SODIUM 139.7 mmol/L (137-145); TOTAL PROTEIN 7.7 g/dL (6.3-8.2)
[2017-03-02 23:55] LABS: ALCOHOL < 10 mg/dL (NONE DETECTED)
[2017-03-03] MEDS: NORMAL SALINE 1000 ML 1,000 ML IV PRN ×2 (00:08→00:09)
[2017-03-03 00:52] LABS: APPEARANCE,URINE CLEAR; BILIRUBIN,URINE MODERATE (NEGATIVE); GLUCOSE, URINE NEGATIVE (NEGATIVE); KETONES,URINE NEGATIVE (NEGATIVE); LEUKOCYTE ESTERASE,URINE NEGATIVE (NEGATIVE); NITRITE,URINE NEGATIVE (NEGATIVE); PROTEIN,URINE NEGATIVE (NEGATIVE); URINE SPECIFIC GRAVITY 1.021; UROBILINOGEN,URINE NEGATIVE mg/dL (<2.0)
[2017-03-03 02:13] VITALS: BP 131/90
[2017-03-03 02:14] LABS: URINE BARBITURATES SCREEN NEGATIVE; URINE METHADONE SCREEN NEGATIVE; URINE OPIATES LOW NEGATIVE; URINE PHENCYCLIDINE SCREEN UNCONFIRMED POSITIVE
== END 2017-03-03 02:25 | disposition home or self-care (01) ==
LOC: ER 22:59
DX: F11.20 Opioid dependence, uncomplicated (principal); F13.20 Sedative, hypnotic or anxiolytic dependence, uncomplicated; R06.02 Shortness of breath; I45.10 Unspecified right bundle-branch block; R00.0 Tachycardia, unspecified; F17.200 Nicotine dependence, unspecified, uncomplicated
CPT/HCPCS: 93005; 99285; 96360; 36415; 80307 ×4; 85025; 80053; 81001; 93010; J7030

== ENCOUNTER 2017-03-18 01:46 | Emergency (ER) | payer SELFPAY ==
[2017-03-18] MEDS ORDERED: NORMAL SALINE 1000 ML 1,000 ML IV ONE (02:27)
[2017-03-18] MEDS ORDERED: LORAZEPAM INJ 2 MG/1 ML VIAL IV ONE (02:29)
[2017-03-18 03:10] LABS: ABSOLUTE BASOPHILS # (AUTO) 0.1 10^3/uL (0.0-0.2); ABSOLUTE EOSINOPHILS # (AUTO) 0.3 10^3/uL (0.0-0.6); ABSOLUTE LYMPHOCYTES (AUTO) 4.1 10^3/uL (0.5-4.7); ABSOLUTE NEUT (AUTO) 6.4 10^3/uL (1.7-8.2); APPEARANCE,URINE CLEAR; BASOPHILS % (AUTO) 0.5 % (0-2); BILIRUBIN,URINE NEGATIVE (NEGATIVE); EOSINOPHILS % (AUTO) 2.7 % (0-6); GLUCOSE, URINE NEGATIVE (NEGATIVE); HEMATOCRIT 43.5 % (37.9-51.0); HEMOGLOBIN 15.2 g/dL (13.5-17.0); HGB HCT DIFFERENCE 2.1; KETONES,URINE NEGATIVE (NEGATIVE); LEUKOCYTE ESTERASE,URINE NEGATIVE (NEGATIVE); LYMPHOCYTES % (AUTO) 34.6 % (13-45); MEAN CORPUSCULAR HEMOGLOBIN 32.1 pg (27.0-33.4); MEAN CORPUSCULAR HGB CONC 34.9 g/dL (32.0-36.0); MEAN CORPUSCULAR VOLUME 92 fl (80-97); MONOCYTES % (AUTO) 8.6 % (3-13); NITRITE,URINE NEGATIVE (NEGATIVE); PROTEIN,URINE NEGATIVE (NEGATIVE); RED BLOOD COUNT 4.74 10^6/uL (4.35-5.55); RED CELL DISTRIBUTION WIDTH 12.8 % (11.5-14.0); SEGMENTED NEUTROPHILS % (AUTO) 53.6 % (42-78); URINE SPECIFIC GRAVITY 1.005; UROBILINOGEN,URINE NEGATIVE mg/dL (<2.0)
[2017-03-18 03:15] LABS: ALANINE AMINOTRANSFERASE 32 U/L (21-72); ALBUMIN 4.8 g/dL (3.5-5.0); ALCOHOL < 10 mg/dL (NONE DETECTED); ALKALINE PHOSPHATASE 82 U/L (38-126); ANION GAP 7 (5-19); ASPARTATE AMINO TRANSFERASE 19 U/L (17-59); BILIRUBIN,DIRECT 0.4 mg/dL (0.0-0.4); BILIRUBIN,TOTAL 0.4 mg/dL (0.2-1.3); BLOOD UREA NITROGEN 17 mg/dL (7-20); CALCIUM 9.8 mg/dL (8.4-10.2); CARBON DIOXIDE 23 mmol/L (22-30); CHLORIDE 110 mmol/L (98-107); CREATININE RESULT 1.22 mg/dL (0.52-1.25); GLUCOSE 109 mg/dL (75-110); MAGNESIUM 1.5 mg/dL (1.6-2.3); POTASSIUM 4.1 mmol/L (3.6-5.0); SODIUM 140.4 mmol/L (137-145); TOTAL PROTEIN 7.5 g/dL (6.3-8.2)
[2017-03-18 03:24] LABS: URINE BARBITURATES SCREEN NEGATIVE; URINE METHADONE SCREEN NEGATIVE; URINE OPIATES LOW NEGATIVE; URINE PHENCYCLIDINE SCREEN UNCONFIRMED POSITIVE
--- NOTE | 2017-03-18 04:39 | ER Document Report ---
ED General - General Chief Complaint: Possible Overdose Stated Complaint: POSSIBLE MUSCLE CRAMPING Time Seen by Provider: 03/18/17 02:14 Mode of Arrival: Ambulatory Information source: Patient TRAVEL OUTSIDE OF THE [place] IN LAST 30 DAYS: No - HPI Notes: Patient is a 31-year-old male presents emergency department with report of a long-standing history of dextromethorphan and Benadryl abuse and he states that he took 60 tablets of dextromethorphan 2 days ago and 250 mg of Benadryl, and now he states he feels anxious and nervous and has muscle twitches. 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 The patient is noted on exam to stop all of his twitches every time he speaks. Patient denies any other Ingestion or overdose. He states he overdoses recreational and he denies any suicidal or homicidal ideation. He reports no chest pain or difficulty breathing. - Related Data Allergies/Adverse Reactions: No Known Allergies Allergy (Verified 10/27/15 12:39) Past Medical History - General Information source: Patient - Social History Smoking Status: Unknown if Ever Smoked Frequency of alcohol use: None Drug Abuse: Other - Benadryl and dextromethorphan abuse.. denies: Cocaine Family History: Reviewed & Not Pertinent, DM, Hypertension, Other - History of thromboembolic disease Patient has suicidal ideation: No Patient has homicidal ideation: No - Past Medical History Cardiac Medical History: Reports: Hx Hypertension Denies: Hx Heart Attack Pulmonary Medical History: Denies: Hx Asthma, Hx Bronchitis, Hx COPD, Hx Pneumonia Neurological Medical History: Denies: Hx Seizures Renal/ Medical History: Denies: Hx Peritoneal Dialysis GI Medical History: Reports: Hx Gastroesophageal Reflux Disease, Hx Ulcer Musculoskeltal Medical History: Denies Hx Arthritis, Reports Hx Musculoskeletal Trauma Psychiatric Medical History: Reports: Hx Bipolar Disorder, Hx Depression Traumatic Medical History: Reports: Hx Fractures - Immunizations Immunizations up to date: No Hx Diphtheria, Pertussis, Tetanus Vaccination: No Review of Systems - Review of Systems Notes: REVIEW OF SYSTEMS: CONSTITUTIONAL : Denies fever, chills, or sweats. Denies recent illness. EENT: Denies eye, ear, throat, or mouth pain or symptoms. Denies nasal or sinus congestion or discharge. Denies throat, tongue, or mouth swelling or difficulty swallowing. CARDIOVASCULAR: Denies chest pain. Denies palpitations or racing or irregular heart beat. Denies ankle edema. RESPIRATORY: Denies cough, cold, or chest congestion. Denies shortness of breath, difficulty breathing, or wheezing. GASTROINTESTINAL: Denies abdominal pain or distention. Denies nausea, vomiting , or diarrhea. Denies blood in vomitus, stools, or per rectum. Denies black, tarry stools. Denies constipation. GENITOURINARY: Denies difficulty urinating, painful urination, burning, frequency, blood in urine, or discharge. MUSCULOSKELETAL: Denies back or neck pain or stiffness. Denies joint pain or swelling. SKIN: Denies rash, lesions or sores. HEMATOLOGIC : Denies easy bruising or bleeding. LYMPHATIC: Denies swollen, enlarged glands. NEUROLOGICAL: Denies passing out or loss of consciousness. Denies headache. Denies weakness or paralysis or loss of use of either side. Denies problems with gait or speech. Denies sensory loss, numbness, or tingling. Denies seizures. Patient reports occasional muscle twitches. PSYCHIATRIC: Denies anxiety or stress. Denies depression, suicidal ideation, or homicidal ideation. ALL OTHER SYSTEMS REVIEWED AND NEGATIVE. Dictation was performed using [employer] voice recognition software Physical Exam - Vital signs Vitals: Temp Pulse Resp BP Pulse Ox 98.6 F 129 H 20 159/103 H 97 03/18/17 01:58 03/18/17 01:58 03/18/17 01:58 03/18/17 01:58 03/18/17 01:58 - Notes Notes: PHYSICAL EXAMINATION: GENERAL: Anxious, well-nourished and in no acute distress. HEAD: Atraumatic, normocephalic. EYES: Pupils equal round and reactive to light, extraocular movements intact, sclera anicteric, conjunctiva are normal. ENT: Nares patent, oropharynx clear without exudates. Slightly dry mucous membranes. NECK: Normal range of motion, supple without lymphadenopathy LUNGS: Breath sounds clear to auscultation bilaterally and equal. No wheezes rales or rhonchi. HEART: Regular rhythm without murmurs. Tachycardic 125. ABDOMEN: Soft, nontender, nondistended abdomen. No guarding, no rebound. No masses appreciated. Musculoskeletal: Normal range of motion, no pitting or edema. No cyanosis. NEUROLOGICAL: Cranial nerves grossly intact. Normal speech, normal gait. Normal sensory, motor exams PSYCH: Normal mood, normal affect. SKIN: Warm, Dry, normal turgor, no rashes or lesions noted. Course - Re-evaluation Re-evalutation: 03/18/17 04:37 Patient was given 2 mg of IV Ativan and 1 L normal saline. Patient was watched on the cardiac cath rn and his tachycardia resolved. There is no ectopy. No arrhythmia. On repeat exam there were no muscle twitches, the patient was sleeping and resting comfortably. His heart rate was 96 and his blood pressure was 142/76. There is no further evidence of anxiety or tachycardia. I counseled patient at length about the need to discontinue his abuse of dextromethorphan and Benadryl. The patient was told he also needed to get a ride home. Patient does not meet IVC criteria, as he denies suicidal or homicidal ideation. No evidence for electrolyte imbalance or anemia or other drug toxidrome. 03/18/17 04:42 - Vital Signs Vital signs: Temp Pulse Resp BP Pulse Ox 98.6 F 129 H 21 H 159/103 H 94 03/18/17 01:58 03/18/17 01:58 03/18/17 03:02 03/18/17 01:58 03/18/17 03:02 - Laboratory Result Diagrams: 03/18/17 02:45 03/18/17 02:45 Laboratory results interpreted by me: 03/18/17 03/18/17 02:45 02:45 WBC 12.0 H Chloride 110 H Magnesium 1.5 L Discharge - Discharge Clinical Impression: Anxiety Overdose Qualifiers: Encounter type: initial encounter Injury intent: accidental or unintentional Qualified Code(s): T50.901A - Poisoning by unspecified drugs, medicaments and biological substances, accidental (unintentional), initial encounter Condition: Stable Disposition: HOME, SELF-CARE Instructions: Anxiety ([facility]) Additional Instructions: Stop abusing dextromethorphan and Benadryl. Do not take Ativan and drive. Prescriptions: Lorazepam [Ativan 1 mg Tablet] 1 mg PO Q8HP PRN #5 tablet PRN Reason: Forms: Return to Work Referrals: JANNY OSEGUERA MD [Primary Care Provider] - Follow up as needed
[2017-03-18 07:38] VITALS: BP 133/91
== END 2017-03-18 08:00 | disposition home or self-care (01) ==
LOC: ER 01:46
DX: T50.901A Poisoning by unspecified drugs, medicaments and biological substances, accidental (unintentional), initial encounter (principal); F41.9 Anxiety disorder, unspecified; R00.0 Tachycardia, unspecified; R25.3 Fasciculation; Z82.0 Family history of epilepsy and other diseases of the nervous system; I10 Essential (primary) hypertension
CPT/HCPCS: 99284; 96361; 96374; 36415; 80307 ×2; 83735; 85025; 80053; 81001; J2060; J7030

== ENCOUNTER 2017-03-19 10:38 | Emergency (ER) | payer SELFPAY ==
--- NOTE | 2017-03-19 11:03 | ER Document Report ---
ED Medical Screen (RME) - General Chief Complaint: Psych Problem Stated Complaint: PSYCH EVAL Time Seen by Provider: 03/19/17 10:52 Notes: Grandmother called mobile crisis today because patient has been falling down and hallucinating. Patient states that he abuses Benadryl and dextromethorphan and has been doing this for about 12 years. Patient states he is already taken about 20 dextromethorphan tablets today and approximately 10 Benadryl today. He denies alcohol or other drug use. He states he does occasionally smoke marijuana but has not smoked recently. Patient states that he hears noises but no voices. However grandma states that he carries on conversations with people that are not in the room. Patient denies any type of visual hallucinations. TRAVEL OUTSIDE OF THE [place] IN LAST 30 DAYS: No - Related Data Allergies/Adverse Reactions: No Known Allergies Allergy (Verified 03/19/17 10:52) Past Medical History - Past Medical History Cardiac Medical History: Reports: Hx Hypertension Denies: Hx Heart Attack Pulmonary Medical History: Denies: Hx Asthma, Hx Bronchitis, Hx COPD, Hx Pneumonia Neurological Medical History: Denies: Hx Seizures Renal/ Medical History: Denies: Hx Peritoneal Dialysis GI Medical History: Reports: Hx Gastroesophageal Reflux Disease, Hx Ulcer Musculoskeltal Medical History: Denies Hx Arthritis, Reports Hx Musculoskeletal Trauma Psychiatric Medical History: Reports: Hx Bipolar Disorder, Hx Depression Traumatic Medical History: Reports: Hx Fractures - Immunizations Immunizations up to date: No Hx Diphtheria, Pertussis, Tetanus Vaccination: No Physical Exam - Vital signs Vitals: Temp Pulse Resp BP Pulse Ox 98.9 F 115 H 16 132/80 H 97 03/19/17 10:49 03/19/17 10:49 03/19/17 10:49 03/19/17 10:49 03/19/17 10:49 Course - Vital Signs Vital signs: Temp Pulse Resp BP Pulse Ox 98.9 F 115 H 16 132/80 H 97 03/19/17 10:49 03/19/17 10:49 03/19/17 10:49 03/19/17 10:49 03/19/17 10:49
[2017-03-19 11:26] LABS: ABSOLUTE EOSINOPHILS # (AUTO) 0.3 10^3/uL (0.0-0.6); ABSOLUTE LYMPHOCYTES (AUTO) 2.4 10^3/uL (0.5-4.7); ABSOLUTE MONOCYTES (AUTO) 0.6 10^3/uL (0.1-1.4); ABSOLUTE NEUT (AUTO) 4.7 10^3/uL (1.7-8.2); BASOPHILS % (AUTO) 0.4 % (0-2); EOSINOPHILS % (AUTO) 3.3 % (0-6); HEMATOCRIT 42.9 % (37.9-51.0); HEMOGLOBIN 14.9 g/dL (13.5-17.0); HGB HCT DIFFERENCE 1.8; MEAN CORPUSCULAR HEMOGLOBIN 32.1 pg (27.0-33.4); MEAN CORPUSCULAR HGB CONC 34.7 g/dL (32.0-36.0); MEAN CORPUSCULAR VOLUME 92 fl (80-97); MONOCYTES % (AUTO) 7.2 % (3-13); RED BLOOD COUNT 4.64 10^6/uL (4.35-5.55); RED CELL DISTRIBUTION WIDTH 12.8 % (11.5-14.0); SEGMENTED NEUTROPHILS % (AUTO) 59.1 % (42-78); WHITE BLOOD COUNT 7.9 10^3/uL (4.0-10.5)
[2017-03-19 11:50] LABS: ALANINE AMINOTRANSFERASE 30 U/L (21-72); ALBUMIN 4.8 g/dL (3.5-5.0); ALKALINE PHOSPHATASE 81 U/L (38-126); ANION GAP 10 (5-19); ASPARTATE AMINO TRANSFERASE 20 U/L (17-59); BILIRUBIN,DIRECT 0.7 mg/dL (0.0-0.4); BILIRUBIN,TOTAL 0.7 mg/dL (0.2-1.3); BLOOD UREA NITROGEN 11 mg/dL (7-20); CARBON DIOXIDE 24 mmol/L (22-30); CHLORIDE 109 mmol/L (98-107); CREATININE RESULT 0.96 mg/dL (0.52-1.25); GLUCOSE 68 mg/dL (75-110); POTASSIUM 4.1 mmol/L (3.6-5.0); SODIUM 142.7 mmol/L (137-145); TOTAL PROTEIN 7.4 g/dL (6.3-8.2)
--- NOTE | 2017-03-19 11:52 | EKG REPORT ---
SEVERITY:- ABNORMAL ECG - SINUS TACHYCARDIA LEFT ATRIAL ABNORMALITY RIGHT BUNDLE BRANCH BLOCK : Confirmed by: Светлана Jessica 19-Mar-2017 11:51:22
[2017-03-19 11:55] LABS: ALCOHOL < 10 mg/dL (NONE DETECTED)
[2017-03-19] MEDS: NORMAL SALINE 1000 ML 1,000 ML IV PRN ×2 (12:50→12:59)
--- NOTE | 2017-03-19 13:38 | ER Document Report ---
ED General - General Chief Complaint: Psych Problem Stated Complaint: PSYCH EVAL Time Seen by Provider: 03/19/17 10:52 TRAVEL OUTSIDE OF THE [place] IN LAST 30 DAYS: No - HPI Patient complains to provider of: Psychiatric evaluation Notes: Patient coming in for psychiatric evaluation. Patient was recently discharged from this facility after overdosing on dextromethorphan. Patient has a history of this patient at that time had positive PCP and his urine drug screen. Patient was brought in today for no psychiatric evaluation according to the person that brought him in the nurses report that patient was having hallucinations. Upon my evaluation patient denies any hallucinations auditory or visual. Patient states he has taken a lot of Robitussin today for the purpose of getting high. Patient inquires about drug detox. Patient denies any homicidal suicidal ideation. - Related Data Allergies/Adverse Reactions: No Known Allergies Allergy (Verified 03/19/17 10:52) Past Medical History - Social History Smoking Status: Unknown if Ever Smoked Family History: Reviewed & Not Pertinent, DM, Hypertension, Other - History of thromboembolic disease Patient has suicidal ideation: No Patient has homicidal ideation: No - Past Medical History Cardiac Medical History: Reports: Hx Hypertension Denies: Hx Heart Attack Pulmonary Medical History: Denies: Hx Asthma, Hx Bronchitis, Hx COPD, Hx Pneumonia Neurological Medical History: Denies: Hx Seizures Renal/ Medical History: Denies: Hx Peritoneal Dialysis GI Medical History: Reports: Hx Gastroesophageal Reflux Disease, Hx Ulcer Musculoskeltal Medical History: Denies Hx Arthritis, Reports Hx Musculoskeletal Trauma Psychiatric Medical History: Reports: Hx Bipolar Disorder, Hx Depression Traumatic Medical History: Reports: Hx Fractures - Immunizations Immunizations up to date: No Hx Diphtheria, Pertussis, Tetanus Vaccination: No Review of Systems - Review of Systems Constitutional: No symptoms reported EENT: No symptoms reported Cardiovascular: No symptoms reported Respiratory: No symptoms reported Gastrointestinal: No symptoms reported Genitourinary: No symptoms reported Male Genitourinary: No symptoms reported Musculoskeletal: No symptoms reported Skin: No symptoms reported Hematologic/Lymphatic: No symptoms reported Neurological/Psychological: Other - Overdosing to get high Physical Exam - Vital signs Vitals: Temp Pulse Resp BP Pulse Ox 98.9 F 115 H 16 132/80 H 97 03/19/17 10:49 03/19/17 10:49 03/19/17 10:49 03/19/17 10:49 03/19/17 10:49 Interpretation: Tachycardic - General General appearance: Appears well, Alert - HEENT Head: Normocephalic, Atraumatic Eyes: Normal Pupils: PERRL - Respiratory Respiratory status: No respiratory distress Chest status: Nontender Breath sounds: Normal Chest palpation: Normal - Cardiovascular Rhythm: Regular, Tachycardia Heart sounds: Normal auscultation Murmur: No - Abdominal Inspection: Normal Distension: No distension Bowel sounds: Normal Tenderness: Nontender Organomegaly: No organomegaly - Back Back: Normal, Nontender - Extremities General upper extremity: Normal inspection, Nontender, Normal color, Normal ROM , Normal temperature General lower extremity: Normal inspection, Nontender, Normal color, Normal ROM , Normal temperature, Normal weight bearing. No: Faisal's sign - Neurological Neuro grossly intact: Yes Cognition: Normal Orientation: AAOx4 Ernie Coma Scale Eye Opening: Spontaneous [place] Coma Scale Verbal: Oriented Ernie Coma Scale Motor: Obeys Commands [place] Coma Scale Total: 15 Speech: Normal Motor strength normal: LUE, RUE, LLE, RLE Sensory: Normal - Psychological Associated symptoms: Normal affect, Normal mood - Skin Skin Temperature: Warm Skin Moisture: Dry Skin Color: Normal Course - Re-evaluation Re-evalutation: 03/19/17 13:40 On evaluation patient does look to be high on his Robitussin. Patient is tachycardic consistent with the toxidrome for overdose of dextromethorphan. Patient was given IV fluids with response in his heart rate. Patient otherwise has improved his mental state. Patient will be monitored and will undergo a psychiatric evaluation. Patient otherwise denies homicidal suicidal ideation. More likely visual disturbances reported by karine William is that brought the patient in our likely due to his overdose of dextromethorphan. - Vital Signs Vital signs: Temp Pulse Resp BP Pulse Ox 98.9 F 115 H 16 132/80 H 97 03/19/17 10:49 03/19/17 10:49 03/19/17 10:49 03/19/17 10:49 03/19/17 10:49 - Laboratory Result Diagrams: 03/19/17 11:13 03/19/17 11:13 Laboratory results interpreted by me: 03/19/17 11:13 Chloride 109 H Glucose 68 L Direct Bilirubin 0.7 H Salicylates < 1.0 L Acetaminophen < 10 L Discharge - Discharge Clinical Impression: Overdose Qualifiers: Encounter type: subsequent encounter Injury intent: undetermined intent Qualified Code(s): T50.904D - Poisoning by unspecified drugs, medicaments and biological substances, undetermined, subsequent encounter Condition: Good Disposition: HOME, SELF-CARE Additional Instructions: Please follow-up with resources given. Please stop overdosing on medications. Referrals: [facility] [Provider Group] - Follow up as needed [facility] [Provider Group] - Follow up as needed
[2017-03-19 14:50] LABS: APPEARANCE,URINE CLEAR; BILIRUBIN,URINE NEGATIVE (NEGATIVE); GLUCOSE, URINE NEGATIVE (NEGATIVE); KETONES,URINE NEGATIVE (NEGATIVE); LEUKOCYTE ESTERASE,URINE NEGATIVE (NEGATIVE); NITRITE,URINE NEGATIVE (NEGATIVE); PROTEIN,URINE NEGATIVE (NEGATIVE); URINE SPECIFIC GRAVITY 1.004; UROBILINOGEN,URINE NEGATIVE mg/dL (<2.0)
--- NOTE | 2017-03-19 15:08 | ER Document Report ---
ED Psych Disorder / Suicide - General Chief Complaint: Psych Problem Stated Complaint: PSYCH EVAL Time Seen by Provider: 03/19/17 10:52 TRAVEL OUTSIDE OF THE [place] IN LAST 30 DAYS: No - HPI Notes: Patient presents to [facility] for possible drug intoxication and hallunications. Mobile crisis is with patient, reports she was called by grandmother, who he lives with due to hallunications. Grandmother reported to mobile crisis. Reports he was having conversations with people and falling down. Reports he takes Robotussin DXM 90 tablets "a day" since he was 18-19 years old. Reports he took 15 Robotussin tablets and 10 benadryl tablets today. Denies ETOH, reports THC and tobacco. Reports "yeah I hear things". Reports he hears sounds and bangs but not voices. Denies any visual hallunications. Denies suicidal and homicidal ideation. Patient presented confused on time line (this could be due to patient's back to back visits in less than 12 hours). He disclosed that he does want sobriety however states that he needs to go home to help take care of his mother. When it was questioned how patient would take care of his mother well using 90 tablets a day of Robitussin patient disclosed "that is just what I have been doing lately it is not every day." Patient stated he had "months and months" of sobriety but was unable to remember when that occurred. Patient had difficulty keeping his eyes open, when asked if he was still feeling the effects of the Robitussin he stated that he was sober. Patient states he is only having difficulty keeping his eyes open is because he is so tired. He disclosed he does not like to go to sleep while he is under the influence of Robitussin because he has bad dreams and it makes him "feel weird." Patient is semi-alert and orientated to person, place and circumstance. It is noted patient was overall orientated to time however had some difficulties because [facility] hours [facility]. Patient denies suicidal and homicidal ideation. Patient endorses auditory hallucinations. Patient is demonstrating behavior congruent with substance induced psychosis; having difficulty following conversation, staring off, poor eye contact. It is noted patient's thought processes were organized and overall linear however irrational due to substance abuse. Eye contact was poor. Intellectual abilities appear to be within the average range. Attention and concentration were poor. Insight, judgment, impulse control appears poor due to substance abuse. 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 Patient will be recommended to follow-up with outpatient services for his substance abuse treatment. Dr. Rodriguez was consulted on the care and management of this patient; attending physician is in agreement with recommendations and disposition per - Related Data Allergies/Adverse Reactions: No Known Allergies Allergy (Verified 03/19/17 10:52) Past Medical History - Social History Smoking Status: Unknown if Ever Smoked Family History: Reviewed & Not Pertinent, DM, Hypertension, Other - History of thromboembolic disease Patient has suicidal ideation: No Patient has homicidal ideation: No - Past Medical History Cardiac Medical History: Reports: Hx Hypertension Denies: Hx Heart Attack Pulmonary Medical History: Denies: Hx Asthma, Hx Bronchitis, Hx COPD, Hx Pneumonia Neurological Medical History: Denies: Hx Seizures Renal/ Medical History: Denies: Hx Peritoneal Dialysis GI Medical History: Reports: Hx Gastroesophageal Reflux Disease, Hx Ulcer Musculoskeltal Medical History: Denies Hx Arthritis, Reports Hx Musculoskeletal Trauma Psychiatric Medical History: Reports: Hx Bipolar Disorder, Hx Depression Traumatic Medical History: Reports: Hx Fractures - Immunizations Immunizations up to date: No Hx Diphtheria, Pertussis, Tetanus Vaccination: No Physical Exam - Vital signs Vitals: Temp Pulse Resp BP Pulse Ox 98.9 F 115 H 16 132/80 H 97 03/19/17 10:49 03/19/17 10:49 03/19/17 10:49 03/19/17 10:49 03/19/17 10:49 Course - Vital Signs Vital signs: Temp Pulse Resp BP Pulse Ox 98.9 F 115 H 16 132/80 H 97 03/19/17 10:49 03/19/17 10:49 03/19/17 10:49 03/19/17 10:49 03/19/17 10:49 - Laboratory Result Diagrams: 03/19/17 11:13 03/19/17 11:13 Laboratory results interpreted by me: 03/19/17 11:13 Chloride 109 H Glucose 68 L Direct Bilirubin 0.7 H Salicylates < 1.0 L Acetaminophen < 10 L Discharge - Discharge Clinical Impression: Overdose Qualifiers: Encounter type: subsequent encounter Injury intent: undetermined intent Qualified Code(s): T50.904D - Poisoning by unspecified drugs, medicaments and biological substances, undetermined, subsequent encounter Condition: Good Disposition: HOME, SELF-CARE Additional Instructions: Please follow-up with resources given. Please stop overdosing on medications. Referrals: [facility] [Provider Group] - Follow up as needed [facility] [Provider Group] - Follow up as needed
--- NOTE | 2017-03-19 15:09 | ER Document Report ---
Doctor's Note Notes: 03/19/17 15:08 The patient remains under the influence of the suspected dextromethorphan overdose and is trying to leave. He is somewhat combative. He does not remember speaking with the psych workers are less than 30 minutes ago. He will be physically restrained due to the risk of him leaving in his present state.
[2017-03-19 15:10] LABS: URINE BARBITURATES SCREEN NEGATIVE; URINE METHADONE SCREEN NEGATIVE; URINE OPIATES LOW NEGATIVE; URINE PHENCYCLIDINE SCREEN UNCONFIRMED POSITIVE
[2017-03-19 15:59] VITALS: BP 126/87
== END 2017-03-19 19:56 | disposition home or self-care (01) ==
LOC: ER 10:38
DX: T50.904D Poisoning by unspecified drugs, medicaments and biological substances, undetermined, subsequent encounter (principal); F16.229 Hallucinogen dependence with intoxication, unspecified; I10 Essential (primary) hypertension; K21.9 Gastro-esophageal reflux disease without esophagitis; Z78.1 Physical restraint status
CPT/HCPCS: 93005; 80307 ×4; 99284; 96360; 36415; 85025; 80053; 81001; 93010; J7030

== ENCOUNTER 2017-04-02 16:40 | Emergency (ER) | payer SELFPAY ==
[2017-04-02] MEDS ORDERED: NORMAL SALINE 1000 ML 1,000 ML IV ONE (17:43)
[2017-04-02] MEDS ORDERED: KETOROLAC TROMETHAMINE INJ/PF 30 MG/1 ML SDV IV ONE (17:44)
--- NOTE | 2017-04-02 17:46 | ER Document Report ---
ED Medical Screen (RME) - General Chief Complaint: Abdominal Pain Stated Complaint: ABDOMINAL PAIN Time Seen by Provider: 04/02/17 17:42 Mode of Arrival: Ambulatory Information source: Patient TRAVEL OUTSIDE OF THE [place] IN LAST 30 DAYS: No - HPI Patient complains to provider of: abd pain Onset: Other - pt states he as been addicted to dextro in robitussin and is trying to wean himself off -- developed LLQ abd pain earllier today but feels better now - Related Data Allergies/Adverse Reactions: No Known Allergies Allergy (Verified 04/02/17 16:51) Past Medical History - Social History Frequency of alcohol use: None Drug Abuse: Other - Past Medical History Cardiac Medical History: Reports: Hx Hypertension Denies: Hx Heart Attack Pulmonary Medical History: Denies: Hx Asthma, Hx Bronchitis, Hx COPD, Hx Pneumonia Neurological Medical History: Denies: Hx Seizures Renal/ Medical History: Denies: Hx Peritoneal Dialysis GI Medical History: Reports: Hx Gastroesophageal Reflux Disease, Hx Ulcer Musculoskeltal Medical History: Denies Hx Arthritis, Reports Hx Musculoskeletal Trauma Psychiatric Medical History: Reports: Hx Bipolar Disorder, Hx Depression Traumatic Medical History: Reports: Hx Fractures - Immunizations Immunizations up to date: No Hx Diphtheria, Pertussis, Tetanus Vaccination: No Physical Exam - Vital signs Vitals: Temp Pulse Resp BP Pulse Ox 98.8 F 107 H 18 145/95 H 98 04/02/17 16:51 04/02/17 16:51 04/02/17 16:51 04/02/17 16:51 04/02/17 16:51 Course - Vital Signs Vital signs: Temp Pulse Resp BP Pulse Ox 98.8 F 107 H 18 145/95 H 98 04/02/17 16:51 04/02/17 16:51 04/02/17 16:51 04/02/17 16:51 04/02/17 16:51
--- NOTE | 2017-04-02 18:41 | RADIOLOGY REPORT (SQ) ---
EXAM DESCRIPTION: ACUTE ABDOMEN SERIES COMPLETED DATE/TIME: 04/02/2017 6:33 pm REASON FOR STUDY: abd pain COMPARISON: Chest x-ray dated 07/13/2014 NUMBER OF VIEWS: Three views. TECHNIQUE: Frontal chest, supine abdomen and upright/decubitus abdomen radiographic images acquired. LIMITATIONS: None. FINDINGS: CHEST: Lungs clear of infiltrates. FREE AIR: None. No abnormal gas collections. BOWEL GAS PATTERN: There is a moderate amount of stool throughout the colon. No evidence of obstruct ion. CALCIFICATIONS: No suspicious calcifications. HARDWARE: None in the abdomen. SOFT TISSUES: No gross mass or suggestion of organomegaly. BONES: No acute fracture. No worrisome bone lesions. OTHER: No other significant finding. IMPRESSION: Constipation. No obstruction. TECHNICAL DOCUMENTATION: JOB ID: [id number] [employer]- All Rights Reserved
[2017-04-02 18:50] LABS: ABSOLUTE BASOPHILS # (AUTO) 0.1 10^3/uL (0.0-0.2); ABSOLUTE EOSINOPHILS # (AUTO) 0.1 10^3/uL (0.0-0.6); ABSOLUTE LYMPHOCYTES (AUTO) 2.3 10^3/uL (0.5-4.7); ABSOLUTE MONOCYTES (AUTO) 1.4 10^3/uL (0.1-1.4); ABSOLUTE NEUT (AUTO) 8.5 10^3/uL (1.7-8.2); BASOPHILS % (AUTO) 0.4 % (0-2); EOSINOPHILS % (AUTO) 0.9 % (0-6); HEMATOCRIT 46.6 % (37.9-51.0); HGB HCT DIFFERENCE 1.4; LYMPHOCYTES % (AUTO) 18.8 % (13-45); MEAN CORPUSCULAR HEMOGLOBIN 31.1 pg (27.0-33.4); MEAN CORPUSCULAR HGB CONC 34.3 g/dL (32.0-36.0); MEAN CORPUSCULAR VOLUME 91 fl (80-97); MONOCYTES % (AUTO) 11.3 % (3-13); RED BLOOD COUNT 5.16 10^6/uL (4.35-5.55); RED CELL DISTRIBUTION WIDTH 13.7 % (11.5-14.0); SEGMENTED NEUTROPHILS % (AUTO) 68.6 % (42-78); WHITE BLOOD COUNT 12.3 10^3/uL (4.0-10.5)
[2017-04-02 19:32] LABS: APPEARANCE,URINE SLIGHTLY-CLOUDY; BILIRUBIN,URINE NEGATIVE (NEGATIVE); CALCIUM OXALATE CRYSTALS,URINE FEW /HPF; GLUCOSE, URINE NEGATIVE (NEGATIVE); KETONES,URINE NEGATIVE (NEGATIVE); LEUKOCYTE ESTERASE,URINE TRACE (NEGATIVE); NITRITE,URINE NEGATIVE (NEGATIVE); PROTEIN,URINE 30 mg/dL (NEGATIVE); URINE SPECIFIC GRAVITY 1.019; UROBILINOGEN,URINE NEGATIVE mg/dL (<2.0)
[2017-04-02 19:43] LABS: ALANINE AMINOTRANSFERASE 34 U/L (21-72); ALKALINE PHOSPHATASE 75 U/L (38-126); ANION GAP 5 (5-19); ASPARTATE AMINO TRANSFERASE 17 U/L (17-59); BILIRUBIN,DIRECT 0.3 mg/dL (0.0-0.4); BILIRUBIN,TOTAL 0.4 mg/dL (0.2-1.3); BLOOD UREA NITROGEN 11 mg/dL (7-20); CALCIUM 9.4 mg/dL (8.4-10.2); CARBON DIOXIDE 17 mmol/L (22-30); CHLORIDE 116 mmol/L (98-107); CREATININE RESULT 0.92 mg/dL (0.52-1.25); GLUCOSE 130 mg/dL (75-110); LIPASE 124.3 U/L (23-300); POTASSIUM 3.3 mmol/L (3.6-5.0); SODIUM 138.3 mmol/L (137-145); TOTAL PROTEIN 6.4 g/dL (6.3-8.2)
[2017-04-02] MEDS ORDERED: SENNOSIDES/DOCUSATE 8.6-50 MG 1 EACH TABLET PO ONE (20:07)
--- NOTE | 2017-04-02 20:07 | ER Document Report ---
ED GI/ - General Chief Complaint: Abdominal Pain Stated Complaint: ABDOMINAL PAIN Time Seen by Provider: 04/02/17 17:42 Mode of Arrival: Ambulatory Information source: Patient Notes: Patient is a 31-year-old male who presents to the ER today for abdominal pain all over but worse in the left lower abdomen since 4 PM today. Patient denies any nausea, vomiting, diarrhea. He states that it has been "a few days" since he last had a bowel movement. He denies any history of constipation, abdominal surgery, fevers or chills with this. TRAVEL OUTSIDE OF THE [place] IN LAST 30 DAYS: No - Related Data Allergies/Adverse Reactions: No Known Allergies Allergy (Verified 04/02/17 16:51) Past Medical History - General Information source: Patient - Social History Smoking Status: Current Every Day Smoker Frequency of alcohol use: None Drug Abuse: Other Family History: Reviewed & Not Pertinent, DM, Hypertension, Other - History of thromboembolic disease - Past Medical History Cardiac Medical History: Reports: Hx Hypertension Denies: Hx Heart Attack Pulmonary Medical History: Denies: Hx Asthma, Hx Bronchitis, Hx COPD, Hx Pneumonia Neurological Medical History: Denies: Hx Seizures Renal/ Medical History: Denies: Hx Peritoneal Dialysis GI Medical History: Reports: Hx Gastroesophageal Reflux Disease, Hx Ulcer Musculoskeltal Medical History: Denies Hx Arthritis, Reports Hx Musculoskeletal Trauma Psychiatric Medical History: Reports: Hx Bipolar Disorder, Hx Depression Traumatic Medical History: Reports: Hx Fractures - Immunizations Immunizations up to date: No Hx Diphtheria, Pertussis, Tetanus Vaccination: No Review of Systems - Review of Systems Constitutional: No symptoms reported EENT: No symptoms reported Cardiovascular: No symptoms reported Respiratory: No symptoms reported Gastrointestinal: See HPI Genitourinary: No symptoms reported Male Genitourinary: No symptoms reported Musculoskeletal: No symptoms reported Skin: No symptoms reported Hematologic/Lymphatic: No symptoms reported Neurological/Psychological: No symptoms reported Physical Exam - Vital signs Vitals: Temp Pulse Resp BP Pulse Ox 98.8 F 107 H 18 145/95 H 98 04/02/17 16:51 04/02/17 16:51 04/02/17 16:51 04/02/17 16:51 04/02/17 16:51 - Notes Notes: PHYSICAL EXAMINATION: GENERAL: Sleeping, in no acute distress. HEAD: Atraumatic, normocephalic. EYES: Pupils equal round and reactive to light, extraocular movements intact, sclera anicteric, conjunctiva are normal. ENT: ear canals without erythema or foreign body, TMs pearly momin with good bony landmarks, nares patent, oropharynx clear without exudates. Moist mucous membranes. NECK: Normal range of motion, supple without lymphadenopathy LUNGS: CTAB and equal. No wheezes rales or rhonchi. HEART: Regular rate and rhythm without murmurs ABDOMEN: Soft, mild diffuse tenderness. No guarding, no rebound BACK: no vertebral tenderness, normal ROM GI/: no CVA tenderness EXTREMITIES: Normal range of motion, no pitting edema. No cyanosis. NEUROLOGICAL: Cranial nerves grossly intact. Normal sensory/motor exams. PSYCH: Normal mood, normal affect. SKIN: Warm, Dry, normal turgor, no rashes or lesions noted Course - Re-evaluation Re-evalutation: 04/02/17 20:06 Lab work is unremarkable today, abdominal x-ray reports moderate constipation throughout. At the time of my evaluation he states that the pain has pretty much subsided without intervention. Patient will be given a laxative and discharged home. 04/02/17 20:06 - Vital Signs Vital signs: Temp Pulse Resp BP Pulse Ox 98.8 F 107 H 18 145/95 H 98 04/02/17 16:51 04/02/17 16:51 04/02/17 16:51 04/02/17 16:51 04/02/17 16:51 - Laboratory Result Diagrams: 04/02/17 18:05 04/02/17 19:10 Laboratory results interpreted by me: 04/02/17 04/02/17 04/02/17 18:05 18:05 19:10 WBC 12.3 H Absolute Neutrophils 8.5 H Potassium 3.3 L Chloride 116 H Carbon Dioxide 17 L Glucose 130 H Urine Protein 30 H Ur Leukocyte Esterase TRACE H Urine Ascorbic Acid 40 H Discharge - Discharge Clinical Impression: Constipation Qualifiers: Constipation type: unspecified constipation type Qualified Code(s): K59.00 - Constipation, unspecified Condition: Stable Disposition: HOME, SELF-CARE Additional Instructions: Return immediately for any new or worsening symptoms. Follow up with primary care provider, call tomorrow to make followup appointment. Prescriptions: Polyethylene Glycol 3350 [Miralax] 1 cap PO DAILY #527 powder Forms: Return to Work
[2017-04-02 20:39] VITALS: BP 155/98
== END 2017-04-02 20:38 | disposition home or self-care (01) ==
LOC: ER 16:40
DX: K59.00 Constipation, unspecified (principal); R10.9 Unspecified abdominal pain; R10.32 Left lower quadrant pain; F17.200 Nicotine dependence, unspecified, uncomplicated
CPT/HCPCS: 99284; 96360; 36415; 83690; 85025; 80053; 81001; 74022; J1885; J7030

== ENCOUNTER 2017-06-17 11:47 | Emergency (ER) | payer OTHER ==
--- NOTE | 2017-06-17 11:52 | ER Document Report ---
ED Substance Abuse / Acc. OD - General Chief Complaint: Possible Overdose Stated Complaint: POSSIBLE OVERDOSE Time Seen by Provider: 06/17/17 11:48 Mode of Arrival: Carried Notes: The patient is a 31-year-old male abuser of Robitussin and Benadryl, presents by EMS after he took 60 tabs of Robitussin-DM at 08:00 today. He said that his normal dose is 90 tabs since he was 18-19 years old when he began to abuse it. Patient seen in the ER multiple times for this issue and is usually provided IV fluids and observed before discharge. Pt said that he was at rehab in [facility] and left 1 month ago. His mom called 911 today. Patient denies chest pain, shortness of breath, urinary retention, fevers, suicidal ideation, homicidal ideation, nausea, vomiting or abdominal pain. TRAVEL OUTSIDE OF THE [place] IN LAST 30 DAYS: No - Related Data Allergies/Adverse Reactions: No Known Allergies Allergy (Verified 06/17/17 11:52) Past Medical History - General Information source: Patient - Social History Smoking Status: Unknown if Ever Smoked Drug Abuse: Other - Mucinex-RM Family History: DM, Hypertension, Other - History of thromboembolic disease - Past Medical History Cardiac Medical History: Reports: Hx Hypertension Denies: Hx Heart Attack Pulmonary Medical History: Denies: Hx Asthma, Hx Bronchitis, Hx COPD, Hx Pneumonia Neurological Medical History: Denies: Hx Seizures Renal/ Medical History: Denies: Hx Peritoneal Dialysis GI Medical History: Reports: Hx Gastroesophageal Reflux Disease, Hx Ulcer Musculoskeltal Medical History: Denies Hx Arthritis, Reports Hx Musculoskeletal Trauma Psychiatric Medical History: Reports: Hx Bipolar Disorder, Hx Depression Traumatic Medical History: Reports: Hx Fractures - Immunizations Immunizations up to date: No Hx Diphtheria, Pertussis, Tetanus Vaccination: No Review of Systems - Review of Systems Notes: REVIEW OF SYSTEMS: CONSTITUTIONAL: -fevers, -chills EENT: -eye pain, -difficulty swallowing, -nasal congestion CARDIOVASCULAR:-chest pain, -syncope. RESPIRATORY: -cough, -SOB GASTROINTESTINAL: -abdominal pain, - nausea, -vomiting, -diarrhea GENITOURINARY: -dysuria, -hematuria MUSCULOSKELETAL: -back pain, -neck pain SKIN: -rash or skin lesions. HEMATOLOGIC: -easy bruising or bleeding. LYMPHATIC: -swollen, enlarged glands. NEUROLOGICAL: -altered mental status or loss of consciousness, -headache, - neurologic symptoms PSYCHIATRIC: +drug abuse, -SI or HI, -anxiety, -depression. ALL OTHER SYSTEMS REVIEWED AND NEGATIVE. Physical Exam - Vital signs Vitals: Temp Pulse Resp BP Pulse Ox 98.5 F 118 H 22 H 154/98 H 96 06/17/17 12:00 06/17/17 12:00 06/17/17 12:00 06/17/17 12:00 06/17/17 12:00 - Notes Notes: PHYSICAL EXAMINATION: GENERAL: Well-appearing, well-nourished and in no acute distress. HEAD: Atraumatic, normocephalic. EYES: Pupils dilated, extraocular movements intact, sclera anicteric, conjunctiva are normal. ENT: nares patent, oropharynx clear without exudates. Moist mucous membranes. NECK: Normal range of motion, supple without lymphadenopathy LUNGS: Breath sounds clear to auscultation bilaterally and equal. No wheezes rales or rhonchi. HEART: Tachycardia, regular rhythm ABDOMEN: Soft, nontender, normoactive bowel sounds. No guarding, no rebound. No masses appreciated. EXTREMITIES: Normal range of motion, no pitting or edema. No cyanosis. NEUROLOGICAL: AAOx4. Moving all 4 extremities. PSYCH: Normal mood, normal affect. SKIN: Warm, Dry, normal turgor, no rashes or lesions noted. Course - Re-evaluation Re-evalutation: 06/17/17 14:27 Pt observed in the ER for 6 hours after his ingestion and he is back to baseline. His slight tachycardia resolved and was most likely related to his dextranmethorphan overdose. Once again, patient provided referral to [facility] detox, but he said he is not ready to go yet. Pt discharged into custody with his friend. He denies SI and said that he was only trying to get high. - Vital Signs Vital signs: Temp Pulse Resp BP Pulse Ox 98.5 F 101 H 18 169/119 H 99 06/17/17 15:00 06/17/17 15:00 06/17/17 15:00 06/17/17 15:00 06/17/17 15:00 - Laboratory Result Diagrams: 06/17/17 12:40 Laboratory results interpreted by me: 06/17/17 12:40 Chloride 121 H Carbon Dioxide 19 L Direct Bilirubin 0.9 H Acetaminophen < 10 L - EKG Interpretation by Me EKG shows normal: Sinus rhythm, [place], Intervals, QRS Complexes, ST-T Waves Rate: Tachycardia Discharge - Discharge Clinical Impression: Drug abuse Condition: Stable Disposition: HOME, SELF-CARE Additional Instructions: Go to [facility] again and get rehab! Do not abuse drugs. OVERDOSE / INGESTION: You have taken more medication than you should have. After your evaluation and care, it is felt that your overdose is not likely to be harmful or of any significant consequences to you and you are being discharged. In the future, you should be careful not to take more medications than what is prescribed for you. Although your overdose does not seem to be of any danger to you at this time, if you develop any unusual or unexpected symptoms after your discharge, you should return to the Emergency Department immediately for re-evaluation. INSTRUCTIONS FOR HOME CARE FOLLOWING DRUG OVERDOSAGE: The doctor feels it's safe for you to go home. You will need to be observed. If charcoal and a laxative was given to you, expect some loose black stools soon. Take no medications unless approved by a physician, including alcohol. If drowsy, lie on your stomach or side for sleeping to avoid aspiration if vomiting occurs. Take only liquids by mouth until there is no more nausea. FOR THE OBSERVER: Observe the patient for the next 24 hours and call or go to the hospital if any of the following are noted: prolonged or repeated vomiting, difficulty in arousing, convulsions (seizures or fits), fever, persistent cough, breathing that is too slow or too rapid, or confused or bizarre behavior. If a counselling visit has been arranged, make sure the patient attends. Call the physician or poison control if you have questions. FOLLOW-UP CARE: If you have been referred to a physician for follow-up care, call the physician s office for an appointment as you were instructed or within the next two days. If you experience worsening or a significant change in your symptoms, notify the physician immediately or return to the Emergency Department at any time for re-evaluation. Forms: Elevated Blood Pressure Referrals: [facility] [Outside] - Follow up as needed
[2017-06-17] MEDS ORDERED: NORMAL SALINE 1000 ML 1,000 ML IV PRN (12:02)
[2017-06-17 13:11] LABS: ALANINE AMINOTRANSFERASE 43 U/L (21-72); ALBUMIN 4.4 g/dL (3.5-5.0); ALKALINE PHOSPHATASE 90 U/L (38-126); ANION GAP 5 (5-19); ASPARTATE AMINO TRANSFERASE 26 U/L (17-59); BILIRUBIN,DIRECT 0.9 mg/dL (0.0-0.4); BILIRUBIN,TOTAL 0.9 mg/dL (0.2-1.3); BLOOD UREA NITROGEN 13 mg/dL (7-20); CALCIUM 8.8 mg/dL (8.4-10.2); CARBON DIOXIDE 19 mmol/L (22-30); CHLORIDE 121 mmol/L (98-107); CREATININE RESULT 0.95 mg/dL (0.52-1.25); GLUCOSE 105 mg/dL (75-110); SODIUM 144.7 mmol/L (137-145); TOTAL PROTEIN 6.9 g/dL (6.3-8.2)
--- NOTE | 2017-06-17 13:39 | EKG REPORT ---
SEVERITY:- ABNORMAL ECG - SINUS TACHYCARDIA PROBABLE LEFT ATRIAL ABNORMALITY INCOMPLETE RIGHT BUNDLE BRANCH BLOCK : Confirmed by: David Stern MD 17-Jun-2017 13:38:11
[2017-06-17 15:51] VITALS: BP 169/119
== END 2017-06-17 15:00 | disposition home or self-care (01) ==
LOC: ER 11:47
DX: T48.3X1A Poisoning by antitussives, accidental (unintentional), initial encounter (principal); F13.10 Sedative, hypnotic or anxiolytic abuse, uncomplicated; R00.0 Tachycardia, unspecified; I10 Essential (primary) hypertension
CPT/HCPCS: 93005; 99284; 96360; 36415; 80307; 80053; 93010; J7030

== ENCOUNTER 2017-09-09 03:49 | Emergency (ER) | payer OTHER ==
--- NOTE | 2017-09-09 04:47 | ER Document Report ---
ED Hand/Wrist Injury - General Mode of Arrival: Ambulatory Information source: Patient TRAVEL OUTSIDE OF THE [place] IN LAST 30 DAYS: No <ABRAHAM DOOLEY - Last Filed: 09/09/17 06:21> <EKATERINA FALL - Last Filed: 09/09/17 06:34> - General Chief Complaint: Hand Injury Stated Complaint: FALL, HAND PAIN Time Seen by Provider: 09/09/17 04:43 Notes: Patient is a 32-year-old male that presents to the emergency department today with complaints of right hand pain. Patient states that he tripped over a table landing on his right hand. Patient complains of pain around the palm of his right hand. Patient denies any other injuries. (ABRAHAM DOOLEY) - Related Data Allergies/Adverse Reactions: No Known Allergies Allergy (Verified 06/17/17 11:52) Past Medical History - General Information source: Patient - Social History Smoking Status: Current Every Day Smoker Cigarette use (# per day): Yes Frequency of alcohol use: Social Drug Abuse: Other - hx of "Robo tripping" Lives with: Family Family History: DM, Hypertension, Other - History of thromboembolic disease - Past Medical History Cardiac Medical History: Reports: Hx Hypertension GI Medical History: Reports: Hx Gastroesophageal Reflux Disease, Hx Ulcer Musculoskeltal Medical History: Reports Hx Musculoskeletal Trauma Psychiatric Medical History: Reports: Hx Bipolar Disorder, Hx Depression Traumatic Medical History: Reports: Hx Fractures Surgical Hx: Negative - Immunizations Immunizations up to date: No Hx Diphtheria, Pertussis, Tetanus Vaccination: No <ABRAHAM DOOLEY - Last Filed: 09/09/17 06:21> Review of Systems - Review of Systems Constitutional: No symptoms reported EENT: No symptoms reported Cardiovascular: No symptoms reported Respiratory: No symptoms reported Gastrointestinal: No symptoms reported Genitourinary: No symptoms reported Male Genitourinary: No symptoms reported Musculoskeletal: See HPI, Other - right hand pain Skin: No symptoms reported Hematologic/Lymphatic: No symptoms reported Neurological/Psychological: No symptoms reported -: Yes All other systems reviewed and negative <ABRAHAM DOOLEY - Last Filed: 09/09/17 06:21> Physical Exam <ABRAHAM DOOLEY - Last Filed: 09/09/17 06:21> <EKATERINA FALL - Last Filed: 09/09/17 06:34> - Vital signs Vitals: Temp Pulse Resp BP Pulse Ox 98.4 F 118 H 20 140/94 H 97 09/09/17 04:01 09/09/17 04:01 09/09/17 04:01 09/09/17 04:01 09/09/17 04:01 - Notes Notes: PHYSICAL EXAM GENERAL: Alert, interacts well. No acute distress. HEAD: Normocephalic, atraumatic. EYES: Pupils equal, round, and reactive to light. Extraocular movements intact. ENT: Oral mucosa moist, tongue midline. NECK: Full range of motion. Supple. Trachea midline. LUNGS: No respiratory distress. ABDOMEN: Non-distended. EXTREMITIES: Moves all 4 extremities spontaneously. Complains of pain when forming a first with the right hand. Unable to fully flex 2nd digit on right hand, limited by pain. No pinpoint tenderness with palpation. Mild diffuse tenderness over the palmar surface of right hand. NEUROLOGICAL: Alert and oriented x3. Normal speech. PSYCH: Normal affect, normal mood. SKIN: Warm, dry, normal turgor. No rashes or lesions noted. (ABRAHAM DOOLEY) Course <ABRAHAM DOOLEY - Last Filed: 09/09/17 06:21> <EKATERINA FALL - Last Filed: 09/09/17 06:34> - Re-evaluation Re-evalutation: 09/09/17 06:32 X-ray is negative, placed in a splint for sprain. Discharged to home. (EKATERINA FALL) - Vital Signs Vital signs: Temp Pulse Resp BP Pulse Ox 98.4 F 118 H 20 140/94 H 97 09/09/17 04:01 09/09/17 04:01 09/09/17 04:01 09/09/17 04:01 09/09/17 04:01 Procedures - Immobilization Right Hand Pre-Proc Neuro Vasc Exam: Normal Immobilizer type: Cock-up Performed by: PCT Post-Proc Neuro Vasc Exam: Normal, Unchanged from pre-exam Alignment checked and good: Yes <EKATERINA FALL - Last Filed: 09/09/17 06:34> Discharge <ABRAHAM DOOLEY - Last Filed: 09/09/17 06:21> <EKATERINA FALL - Last Filed: 09/09/17 06:34> - Discharge Clinical Impression: Sprain of right hand Qualifiers: Encounter type: initial encounter Qualified Code(s): S63.91XA - Sprain of unspecified part of right wrist and hand, initial encounter Hypertension Qualifiers: Hypertension type: essential hypertension Qualified Code(s): I10 - Essential ( primary) hypertension Condition: Stable Disposition: HOME, SELF-CARE Instructions: Sprain ([facility]) Forms: Elevated Blood Pressure Referrals: DEEPA KEY MD [COMMUNITY BASED STAFF] - Follow up in 1 week Scribe Attestation: 09/09/17 06:34 I personally performed the services described in the documentation, reviewed and edited the documentation which was dictated to the scribe in my presence, and it accurately records my words and actions. (EKATERINA FALL) Scribe Documentation - Scribe Written by Maguie:: Robert Mayo, 09/09/2017 0527 acting as scribe for :: Maciej <ABRAHAM DOOLEY - Last Filed: 09/09/17 06:21>
--- NOTE | 2017-09-09 05:12 | RADIOLOGY REPORT (SQ) ---
EXAM DESCRIPTION: HAND RIGHT 3 VIEWS CLINICAL HISTORY: fall on hand COMPARISON: None. FINDINGS: 3 views of the right hand. No acute fracture or dislocation. Normal osseous mineralization. No radiopaque foreign body or subcutaneous air. IMPRESSION: No acute fracture or dislocation.
[2017-09-09 06:42] VITALS: BP 144/106
== END 2017-09-09 06:43 | disposition home or self-care (01) ==
LOC: ER 03:49
DX: S63.91XA Sprain of unspecified part of right wrist and hand, initial encounter (principal); I10 Essential (primary) hypertension; M79.641 Pain in right hand; W01.190A Fall on same level from slipping, tripping and stumbling with subsequent striking against furniture, initial encounter; F17.210 Nicotine dependence, cigarettes, uncomplicated
CPT/HCPCS: 99283; 73130; L3908

== ENCOUNTER 2017-11-10 12:11 | Emergency (ER) | payer OTHER ==
--- NOTE | 2017-11-10 12:38 | ER Document Report ---
ED General - General Information source: Patient TRAVEL OUTSIDE OF THE [place] 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 Patient states he has taking a total of 99 generic Mucinex pills between yesterday and today. He states he has had this addiction for 20 years. He denies any suicidal ideation and states "I was just trying to get high". Patient denies any headache, visual changes, nausea, vomiting, sore throat, chest pain, shortness of breath, abdominal pain, back pain, diarrhea, dysuria, SI, HI, visual and auditory hallucinations. (PATRICIA LEAL) - Related Data Allergies/Adverse Reactions: No Known Allergies Allergy (Verified 06/17/17 11:52) Past Medical History - General Information source: Patient - Social History Smoking Status: Current Every Day Smoker Frequency of alcohol use: Occasional Drug Abuse: Other - Dextromethorphan Lives with: Family Family History: DM, Hypertension, Other - History of thromboembolic disease Patient has suicidal ideation: Yes Patient has homicidal ideation: Yes - Past Medical History Cardiac Medical History: Reports: Hx Hypertension Denies: Hx Heart Attack Pulmonary Medical History: Denies: Hx Asthma, Hx Bronchitis, Hx COPD, Hx Pneumonia Neurological Medical History: Denies: Hx Seizures Renal/ Medical History: Denies: Hx Peritoneal Dialysis GI Medical History: Reports: Hx Gastroesophageal Reflux Disease, Hx Ulcer Musculoskeltal Medical History: Denies Hx Arthritis, Reports Hx Musculoskeletal Trauma Psychiatric Medical History: Reports: Hx Bipolar Disorder, Hx Depression Traumatic Medical History: Reports: Hx Fractures - Immunizations Immunizations up to date: No Hx Diphtheria, Pertussis, Tetanus Vaccination: No <PATRICIA LEAL - Last Filed: 11/10/17 15:47> Review of Systems <PATRICIA LEAL - Last Filed: 11/10/17 15:47> <KATHY INGRAM - Last Filed: 11/10/17 18:27> - Review of Systems Notes: Patient denies any headache, visual changes, nausea, vomiting, sore throat, chest pain, shortness of breath, abdominal pain, back pain, diarrhea, dysuria, SI, HI, visual and auditory hallucinations. (PATRICIA LEAL) Physical Exam - Vital signs Interpretation: Normal, Tachycardic. No: Hypertensive, Hypoxic, Febrile <PATRICIA LEAL - Last Filed: 11/10/17 15:47> <KATHY INGRAM E - Last Filed: 11/10/17 18:27> - Vital signs Vitals: Resp Pulse Ox 24 H 97 11/10/17 12:16 11/10/17 12:16 - Notes Notes: PHYSICAL EXAMINATION: GENERAL: Well-appearing, well-nourished and in no acute distress. HEAD: Atraumatic, normocephalic. EYES: Pupils equal round and reactive to light, extraocular movements intact, sclera anicteric, conjunctiva are normal. Bilateral nystagmus ENT: Nares patent, oropharynx clear without exudates. Moist mucous membranes. NECK: Normal range of motion, supple without lymphadenopathy LUNGS: Breath sounds clear to auscultation bilaterally and equal. No wheezes rales or rhonchi. HEART: Regular rate and rhythm without murmurs ABDOMEN: Soft, nontender, nondistended abdomen. No guarding, no rebound. No masses appreciated. Musculoskeletal: Normal range of motion, no pitting or edema. No cyanosis. NEUROLOGICAL: Cranial nerves grossly intact. Normal speech, normal gait. Normal sensory, motor exams PSYCH: Restless. Denies SI, HI, visual and auditory hallucinations. SKIN: Warm, Dry, normal turgor, no rashes or lesions noted. 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 Patient states he has taking a total of 99 generic Mucinex pills between yesterday and today. He states he has had this addiction for 20 years. He denies any suicidal ideation and states "I was just trying to get high". Arrival vitals were reviewed. Patient was placed on shelter monitor. Patient is mildly tachycardic at a rate of 102. He is afebrile, normotensive. He is alert and oriented 3. He has no physical complaints. I did speak to poison control who recommends benzos as needed and 6 hours of observation. (PATRICIA LEAL) 11/10/17 18:24 32 yo with with dextromethorphan addiction. Patient now medically cleared and has no signs of overdose. He says that he only was trying to get high and not kill himself. Repeat Accu-Chek after eating is normal. Once again, provided substance abuse counseling. (KATHY INGRAM) - Vital Signs Vital signs: Temp Pulse Resp BP Pulse Ox 98.1 F 18 117/73 98 11/10/17 12:58 11/10/17 13:01 11/10/17 13:01 11/10/17 13:01 - Laboratory Laboratory results interpreted by me: 11/10/17 11/10/17 11/10/17 12:30 13:17 13:17 WBC 14.7 H RBC 3.96 L Hgb 13.1 L Hct 37.6 L Seg Neutrophils % 81.3 H Lymphocytes % 10.1 L Absolute Neutrophils 11.9 H Sodium 146.1 H Chloride 127 H Carbon Dioxide 17 L Anion Gap 2 L BUN 6 L Glucose 57 L Calcium 8.3 L Total Protein 5.9 L Urine Bilirubin SMALL H Salicylates < 1.0 L Acetaminophen < 10 L 11/10/17 16:31 WBC RBC Hgb Hct Seg Neutrophils % Lymphocytes % Absolute Neutrophils Sodium Chloride Carbon Dioxide Anion Gap BUN Glucose Calcium Total Protein Urine Bilirubin Salicylates Acetaminophen < 10 L Discharge <PATRICIA LEAL - Last Filed: 11/10/17 15:47> <KATHY INGRAM - Last Filed: 11/10/17 18:27> - Discharge Clinical Impression: Dextromethorphan overdose Qualifiers: Encounter type: initial encounter Injury intent: undetermined intent Qualified Code(s): T48.3X4A - Poisoning by antitussives, undetermined, initial encounter Condition: Stable Disposition: HOME, SELF-CARE Additional Instructions: Do not abuse dextromethorphan! AMPHETAMINE / METHAMPHETAMINE ABUSE: Amphetamines are addicting stimulants. Amphetamines overstimulate the nervous system and give a false feeling of power and mastery. These drugs may be obtained as prescription pills for weight loss, narcolepsy, or attention- deficit disorder. More often they're bought as an illegal street drug, methamphetamine (crank, crystal, speed). Using amphetamines repeatedly can lead to serious medical problems including malnutrition, severe depression, and paranoia. It can take increasing amounts to feel good. Eventually, there will be a "burn out." When you go off amphetamines there is a period of depression that may last for weeks or even months. High doses of amphetamines can cause seizures, confusion, hallucinations, delusions, high blood pressure, muscle damage, heart damage, or sudden . Many times these deadly complications occur even with "normal" doses. Injection of amphetamines is risky for developing abscesses, endocarditis ( heart infection), pneumonia, and AIDS. Withdrawal from amphetamines often causes anxiety, depression, and drug cravings. Some users become paranoid and psychotic. There may be cramps, nausea , and vomiting. Many treatment programs are available, but you must make the decision to quit. Medication can be prescribed to control the symptoms of amphetamine toxicity (beta blockers or benzodiazepines). Withdrawal symptoms may require tranquilizers. OVERDOSE / INGESTION: You have taken more medication than you should have. After your evaluation and care, it is felt that your overdose is not likely to be harmful or of any significant consequences to you and you are being discharged. In the future, you should be careful not to take more medications than what is prescribed for you. Although your overdose does not seem to be of any danger to you at this time, if you develop any unusual or unexpected symptoms after your discharge, you should return to the Emergency Department immediately for re-evaluation. INSTRUCTIONS FOR HOME CARE FOLLOWING DRUG OVERDOSAGE: The doctor feels it's safe for you to go home. You will need to be observed. If charcoal and a laxative was given to you, expect some loose black stools soon. Take no medications unless approved by a physician, including alcohol. If drowsy, lie on your stomach or side for sleeping to avoid aspiration if vomiting occurs. Take only liquids by mouth until there is no more nausea. FOR THE OBSERVER: Observe the patient for the next 24 hours and call or go to the hospital if any of the following are noted: prolonged or repeated vomiting, difficulty in arousing, convulsions (seizures or fits), fever, persistent cough, breathing that is too slow or too rapid, or confused or bizarre behavior. If a counselling visit has been arranged, make sure the patient attends. Call the physician or poison control if you have questions. FOLLOW-UP CARE: If you have been referred to a physician for follow-up care, call the physician s office for an appointment as you were instructed or within the next two days. If you experience worsening or a significant change in your symptoms, notify the physician immediately or return to the Emergency Department at any time for re-evaluation. Referrals: [facility] [Outside] - Follow up as needed
[2017-11-10] MEDS ORDERED: NORMAL SALINE 1000 ML 1,000 ML IV ONE ×2 (12:52→14:21)
[2017-11-10 12:59] LABS: APPEARANCE,URINE CLEAR; BILIRUBIN,URINE SMALL (NEGATIVE); COLOR,URINE COLORLESS; GLUCOSE, URINE NEGATIVE (NEGATIVE); KETONES,URINE NEGATIVE (NEGATIVE); LEUKOCYTE ESTERASE,URINE NEGATIVE (NEGATIVE); NITRITE,URINE NEGATIVE (NEGATIVE); PROTEIN,URINE NEGATIVE (NEGATIVE); UROBILINOGEN,URINE NEGATIVE mg/dL (<2.0)
[2017-11-10] MEDS ORDERED: LORAZEPAM INJ 2 MG/1 ML VIAL IV ONE ×2 (13:10→14:21)
[2017-11-10 13:15] LABS: URINE AMPHETAMINES SCREEN NEGATIVE; URINE BARBITURATES SCREEN UNCONFIRMED POSITIVE; URINE BENZODIAZEPINES SCREEN NEGATIVE; URINE COCAINE SCREEN NEGATIVE; URINE MARIJUANA (THC) SCREEN NEGATIVE; URINE METHADONE SCREEN NEGATIVE; URINE PHENCYCLIDINE SCREEN UNCONFIRMED POSITIVE
--- NOTE | 2017-11-10 13:24 | EKG REPORT ---
SEVERITY:- ABNORMAL ECG - SINUS RHYTHM LEFT ATRIAL ABNORMALITY IVCD, CONSIDER ATYPICAL RBBB : Confirmed by: David Stern MD 10-Nov-2017 13:22:37
[2017-11-10 13:45] LABS: ABSOLUTE LYMPHOCYTES (AUTO) 1.5 10^3/uL (0.5-4.7); ABSOLUTE MONOCYTES (AUTO) 1.2 10^3/uL (0.1-1.4); ABSOLUTE NEUT (AUTO) 11.9 10^3/uL (1.7-8.2); BASOPHILS % (AUTO) 0.3 % (0-2); EOSINOPHILS % (AUTO) 0.1 % (0-6); HEMATOCRIT 37.6 % (37.9-51.0); HEMOGLOBIN 13.1 g/dL (13.5-17.0); LYMPHOCYTES % (AUTO) 10.1 % (13-45); MEAN CORPUSCULAR HGB CONC 34.8 g/dL (32.0-36.0); MEAN CORPUSCULAR VOLUME 95 fl (80-97); MONOCYTES % (AUTO) 8.2 % (3-13); PLATELET COUNT 298 10^3/uL (150-450); RED BLOOD COUNT 3.96 10^6/uL (4.35-5.55); RED CELL DISTRIBUTION WIDTH 12.7 % (11.5-14.0); SEGMENTED NEUTROPHILS % (AUTO) 81.3 % (42-78); TOTAL CELLS COUNTED % (AUTO) 100 %; WHITE BLOOD COUNT 14.7 10^3/uL (4.0-10.5)
[2017-11-10 14:14] LABS: ALANINE AMINOTRANSFERASE 42 U/L (21-72); ALBUMIN 3.7 g/dL (3.5-5.0); ALKALINE PHOSPHATASE 87 U/L (38-126); ASPARTATE AMINO TRANSFERASE 22 U/L (17-59); BILIRUBIN,TOTAL 0.4 mg/dL (0.2-1.3); BLOOD UREA NITROGEN 6 mg/dL (7-20); CALCIUM 8.3 mg/dL (8.4-10.2); CARBON DIOXIDE 17 mmol/L (22-30); GLUCOSE 57 mg/dL (75-110); POTASSIUM 3.7 mmol/L (3.6-5.0); TOTAL PROTEIN 5.9 g/dL (6.3-8.2)
[2017-11-10 14:17] LABS: ACETAMINOPHEN < 10 ug/mL (10-30); ALCOHOL < 10 mg/dL (NONE DETECTED); SALICYLATE < 1.0 mg/dL (2.0-20.0)
[2017-11-10 14:20] LABS: ANION GAP 2 (5-19); CHLORIDE 127 mmol/L (98-107); SODIUM 146.1 mmol/L (137-145)
[2017-11-10 18:47] VITALS: BP 112/84
== END 2017-11-10 18:47 | disposition home or self-care (01) ==
LOC: ER 12:11
DX: T48.3X1A Poisoning by antitussives, accidental (unintentional), initial encounter (principal); R00.0 Tachycardia, unspecified; Y92.009 Unspecified place in unspecified non-institutional (private) residence as the place of occurrence of the external cause; I10 Essential (primary) hypertension; F17.200 Nicotine dependence, unspecified, uncomplicated
CPT/HCPCS: 93005; 99285; 96361; 96374; 36415; 82962; 80307 ×4; 85025; 80053; 81001; 93010; J2060; J7030

== ENCOUNTER 2017-12-01 13:15 | Emergency (ER) | payer OTHER ==
[2017-12-01] MEDS ORDERED: NORMAL SALINE 1000 ML 1,000 ML IV ONE ×2 (13:39→15:13)
--- NOTE | 2017-12-01 13:44 | ER Document Report ---
ED General - General Chief Complaint: Overdose Stated Complaint: POSSIBLE OVERDOSE Time Seen by Provider: 12/01/17 13:24 Notes: Patient is a 32-year-old male who presents to the emergency department via EMS with past medical history significant for hypertension who presents after ingestion of 30 Mucinex D tablets and 20 Benadryl tablets. Patient received 500 mL normal saline bolus via EMS. Patient has a history of dextromethorphan addiction. Patient was previously seen here in October for similar. Patient is he has had this addiction for 20 years. He denies any suicidal ideation. Denies any headache, visual changes, nausea, vomiting sore throat, chest pain shortness of breath. Admits to dry mouth. He denies any suicidal, homicidal ideations, visual or auditory hallucinations. TRAVEL OUTSIDE OF THE [place] IN LAST 30 DAYS: No - Related Data Allergies/Adverse Reactions: No Known Allergies Allergy (Verified 06/17/17 11:52) Past Medical History - Social History Smoking Status: Current Every Day Smoker Family History: DM, Hypertension, Other - History of thromboembolic disease - Past Medical History Cardiac Medical History: Reports: Hx Hypertension Denies: Hx Heart Attack Pulmonary Medical History: Denies: Hx Asthma, Hx Bronchitis, Hx COPD, Hx Pneumonia Neurological Medical History: Denies: Hx Seizures Renal/ Medical History: Denies: Hx Peritoneal Dialysis GI Medical History: Reports: Hx Gastroesophageal Reflux Disease, Hx Ulcer Musculoskeltal Medical History: Denies Hx Arthritis, Reports Hx Musculoskeletal Trauma Psychiatric Medical History: Reports: Hx Bipolar Disorder, Hx Depression Traumatic Medical History: Reports: Hx Fractures - Immunizations Immunizations up to date: No Hx Diphtheria, Pertussis, Tetanus Vaccination: No Review of Systems - Review of Systems -: Yes ROS unobtainable due to patient's medical condition Physical Exam - Vital signs Vitals: Resp Pulse Ox 17 97 12/01/17 13:25 12/01/17 13:25 - Notes Notes: PHYSICAL EXAM GENERAL: Alert but drowsy. Will answer questions after repeated questioning. Patient states that he knows he is in the hospital and time of ingestion. HEAD: Normocephalic, atraumatic. EYES: Pupils equal, round, and reactive to light. Extraocular movements intact. ENT: Oral mucosa moist, tongue midline. NECK: Full range of motion. Supple. Trachea midline. LUNGS: Clear to auscultation bilaterally, no wheezes, rales, or rhonchi. No respiratory distress. HEART: Tachycardic and regular rhythm. No murmurs, gallops, or rubs. ABDOMEN: Soft, nondistended, nontender. No guarding, rebound, or rigidity.. Bowel sounds present in all 4 quadrants. EXTREMITIES: Moves all 4 extremities spontaneously. No edema, radial and dorsalis pedis pulses 2/4 bilaterally. No cyanosis. NEUROLOGICAL: Alert and oriented x4. Normal speech. PSYCH: Normal affect, normal mood. SKIN: Warm, dry, normal turgor. No rashes or lesions noted. Course - Re-evaluation Re-evalutation: 12/01/17 13:45 Spoke with poison control who recommends normal saline boluses for tachycardia and observe for seizures. If he has been seizure activity to administer Ativan and benzodiazepines. Patient to be observed for 6 hours from ingestion which was 1 hour prior to arrival. He can be discharged if asymptomatic and normal vital signs. 12/01/17 18:35 Patient's tachycardia improved after IV boluses, patient at this time is alert, oriented to person place location and events. Girlfriend is at the bedside states that he is at his normal baseline. Patient again denies any suicidal ideations. Will discharge home with instructions to follow-up with mental health resources provided. Patient agrees with plan and stable for discharge home - Vital Signs Vital signs: Temp Pulse Resp BP Pulse Ox 97.8 F 10 L 129/95 H 93 12/01/17 14:50 12/01/17 18:01 12/01/17 18:01 12/01/17 18:01 - Laboratory Result Diagrams: 12/01/17 13:25 12/01/17 13:25 Laboratory results interpreted by me: 12/01/17 12/01/17 12/01/17 13:25 13:25 14:30 Chloride 120 H Carbon Dioxide 19 L Direct Bilirubin 1.2 H Urine Glucose (UA) 150 H Urine Bilirubin MODERATE H Salicylates < 1.0 L Acetaminophen < 10 L Discharge - Discharge Clinical Impression: Abuse of cough or cold remedies Condition: Good Disposition: HOME, SELF-CARE Additional Instructions: Do not abuse dextromethorphan! AMPHETAMINE / METHAMPHETAMINE ABUSE: Amphetamines are addicting stimulants. Amphetamines overstimulate the nervous system and give a false feeling of power and mastery. These drugs may be obtained as prescription pills for weight loss, narcolepsy, or attention- deficit disorder. More often they're bought as an illegal street drug, methamphetamine (crank, crystal, speed). Using amphetamines repeatedly can lead to serious medical problems including malnutrition, severe depression, and paranoia. It can take increasing amounts to feel good. Eventually, there will be a "burn out." When you go off amphetamines there is a period of depression that may last for weeks or even months. High doses of amphetamines can cause seizures, confusion, hallucinations, delusions, high blood pressure, muscle damage, heart damage, or sudden . Many times these deadly complications occur even with "normal" doses. Injection of amphetamines is risky for developing abscesses, endocarditis ( heart infection), pneumonia, and AIDS. Withdrawal from amphetamines often causes anxiety, depression, and drug cravings. Some users become paranoid and psychotic. There may be cramps, nausea , and vomiting. Many treatment programs are available, but you must make the decision to quit. Medication can be prescribed to control the symptoms of amphetamine toxicity (beta blockers or benzodiazepines). Withdrawal symptoms may require tranquilizers. OVERDOSE / INGESTION: You have taken more medication than you should have. After your evaluation and care, it is felt that your overdose is not likely to be harmful or of any significant consequences to you and you are being discharged. In the future, you should be careful not to take more medications than what is prescribed for you. Although your overdose does not seem to be of any danger to you at this time, if you develop any unusual or unexpected symptoms after your discharge, you should return to the Emergency Department immediately for re-evaluation. INSTRUCTIONS FOR HOME CARE FOLLOWING DRUG OVERDOSAGE: The doctor feels it's safe for you to go home. You will need to be observed. If charcoal and a laxative was given to you, expect some loose black stools soon. Take no medications unless approved by a physician, including alcohol. If drowsy, lie on your stomach or side for sleeping to avoid aspiration if vomiting occurs. Take only liquids by mouth until there is no more nausea. FOR THE OBSERVER: Observe the patient for the next 24 hours and call or go to the hospital if any of the following are noted: prolonged or repeated vomiting, difficulty in arousing, convulsions (seizures or fits), fever, persistent cough, breathing that is too slow or too rapid, or confused or bizarre behavior. If a counselling visit has been arranged, make sure the patient attends. Call the physician or poison control if you have questions. FOLLOW-UP CARE: If you have been referred to a physician for follow-up care, call the physician s office for an appointment as you were instructed or within the next two days. If you experience worsening or a significant change in your symptoms, notify the physician immediately or return to the Emergency Department at any time for re-evaluation. Referrals: [facility] [Provider Group] - Follow up tomorrow [facility] [Provider Group] - Follow up in 1 week
[2017-12-01 13:50] LABS: ABSOLUTE BASOPHILS # (AUTO) 0.1 10^3/uL (0.0-0.2); ABSOLUTE EOSINOPHILS # (AUTO) 0.1 10^3/uL (0.0-0.6); ABSOLUTE LYMPHOCYTES (AUTO) 2.3 10^3/uL (0.5-4.7); ABSOLUTE MONOCYTES (AUTO) 0.7 10^3/uL (0.1-1.4); ABSOLUTE NEUT (AUTO) 6.3 10^3/uL (1.7-8.2); BASOPHILS % (AUTO) 0.7 % (0-2); EOSINOPHILS % (AUTO) 1.4 % (0-6); HEMATOCRIT 45.9 % (37.9-51.0); HEMOGLOBIN 15.6 g/dL (13.5-17.0); LYMPHOCYTES % (AUTO) 24.5 % (13-45); MEAN CORPUSCULAR HEMOGLOBIN 31.6 pg (27.0-33.4); MEAN CORPUSCULAR HGB CONC 33.9 g/dL (32.0-36.0); MEAN CORPUSCULAR VOLUME 93 fl (80-97); MONOCYTES % (AUTO) 7.4 % (3-13); PLATELET COUNT 336 10^3/uL (150-450); RED BLOOD COUNT 4.92 10^6/uL (4.35-5.55); RED CELL DISTRIBUTION WIDTH 12.7 % (11.5-14.0); TOTAL CELLS COUNTED % (AUTO) 100 %; WHITE BLOOD COUNT 9.5 10^3/uL (4.0-10.5)
[2017-12-01 14:02] LABS: ACETAMINOPHEN < 10 ug/mL (10-30); ALCOHOL < 10 mg/dL (NONE DETECTED); SALICYLATE < 1.0 mg/dL (2.0-20.0)
[2017-12-01 15:06] LABS: APPEARANCE,URINE CLEAR; BILIRUBIN,URINE MODERATE (NEGATIVE); COLOR,URINE STRAW; GLUCOSE, URINE 150 mg/dL (NEGATIVE); KETONES,URINE NEGATIVE (NEGATIVE); LEUKOCYTE ESTERASE,URINE NEGATIVE (NEGATIVE); NITRITE,URINE NEGATIVE (NEGATIVE); PROTEIN,URINE NEGATIVE (NEGATIVE); URINE SPECIFIC GRAVITY 1.017; UROBILINOGEN,URINE NEGATIVE mg/dL (<2.0)
[2017-12-01 15:08] LABS: ALANINE AMINOTRANSFERASE 33 U/L (21-72); ALBUMIN 4.2 g/dL (3.5-5.0); ALKALINE PHOSPHATASE 96 U/L (38-126); ANION GAP 5 (5-19); ASPARTATE AMINO TRANSFERASE 19 U/L (17-59); BILIRUBIN,DIRECT 1.2 mg/dL (0.0-0.4); BILIRUBIN,TOTAL 1.2 mg/dL (0.2-1.3); BLOOD UREA NITROGEN 9 mg/dL (7-20); CALCIUM 8.9 mg/dL (8.4-10.2); CARBON DIOXIDE 19 mmol/L (22-30); CHLORIDE 120 mmol/L (98-107); GLUCOSE 110 mg/dL (75-110); POTASSIUM 4.1 mmol/L (3.6-5.0); SODIUM 143.5 mmol/L (137-145); TOTAL PROTEIN 6.6 g/dL (6.3-8.2)
[2017-12-01 15:32] LABS: URINE AMPHETAMINES SCREEN NEGATIVE; URINE BARBITURATES SCREEN NEGATIVE; URINE BENZODIAZEPINES SCREEN NEGATIVE; URINE COCAINE SCREEN NEGATIVE; URINE MARIJUANA (THC) SCREEN NEGATIVE; URINE METHADONE SCREEN NEGATIVE; URINE PHENCYCLIDINE SCREEN UNCONFIRMED POSITIVE
[2017-12-01 19:11] VITALS: BP 126/96
--- NOTE | 2017-12-01 20:16 | EKG REPORT ---
SEVERITY:- ABNORMAL ECG - SINUS TACHYCARDIA RIGHT BUNDLE BRANCH BLOCK : Confirmed by: Светлана Jessica 01-Dec-2017 20:15:27
--- NOTE | 2017-12-01 20:16 | EKG REPORT ---
SEVERITY:- ABNORMAL ECG - SINUS TACHYCARDIA LEFT ATRIAL ABNORMALITY INCOMPLETE RIGHT BUNDLE BRANCH BLOCK : Confirmed by: Светлана Jessica 01-Dec-2017 20:15:19
== END 2017-12-01 19:11 | disposition home or self-care (01) ==
LOC: ER 13:15
DX: F19.10 Other psychoactive substance abuse, uncomplicated (principal); R00.0 Tachycardia, unspecified; R40.0 Somnolence; F17.200 Nicotine dependence, unspecified, uncomplicated; I10 Essential (primary) hypertension
CPT/HCPCS: 93005; 99285; 96360; 36415; 80307 ×4; 85025; 80053; 81001; 93010; J7030

== ENCOUNTER 2017-12-18 01:19 | Emergency (ER) | payer OTHER ==
[2017-12-18] MEDS ORDERED: NORMAL SALINE 1000 ML 1,000 ML IV ONE ×2 (03:06→04:33)
--- NOTE | 2017-12-18 03:06 | ER Document Report ---
ED General - General Chief Complaint: Possible Kidney Stone Stated Complaint: KIDNEY PAIN Time Seen by Provider: 12/18/17 02:59 Notes: Patient is a 32-year-old male who presents emergency room with a chief complaint of left flank pain. Patient states that he was born with one kidney. He states that he has never had pain like this before. Denies any history of kidney stones. States that his pain was sudden onset in the left flank and sharp and stabbing localized to his left flank. Denies any nausea, vomiting. He admits to normal urine output despite this. He does admit over the course of the past 2 months he admits to polyuria and polydipsia. Patient does have a history of dextromethorphan substance abuse. Patient states that he typically takes capsules daily TRAVEL OUTSIDE OF THE [place] IN LAST 30 DAYS: No - Related Data Allergies/Adverse Reactions: No Known Allergies Allergy (Verified 06/17/17 11:52) Past Medical History - Social History Smoking Status: Current Every Day Smoker Family History: DM, Hypertension, Other - History of thromboembolic disease - Past Medical History Cardiac Medical History: Reports: Hx Hypertension Denies: Hx Heart Attack Pulmonary Medical History: Denies: Hx Asthma, Hx Bronchitis, Hx COPD, Hx Pneumonia Neurological Medical History: Denies: Hx Seizures Renal/ Medical History: Denies: Hx Peritoneal Dialysis GI Medical History: Reports: Hx Gastroesophageal Reflux Disease, Hx Ulcer Musculoskeltal Medical History: Denies Hx Arthritis, Reports Hx Musculoskeletal Trauma Psychiatric Medical History: Reports: Hx Bipolar Disorder, Hx Depression Traumatic Medical History: Reports: Hx Fractures - Immunizations Immunizations up to date: No Hx Diphtheria, Pertussis, Tetanus Vaccination: No Review of Systems - Review of Systems Constitutional: No symptoms reported Cardiovascular: No symptoms reported Respiratory: No symptoms reported Gastrointestinal: No symptoms reported Genitourinary: See HPI Musculoskeletal: See HPI -: Yes All other systems reviewed and negative Physical Exam - Vital signs Vitals: Temp Pulse Resp BP Pulse Ox 99.3 F 102 H 18 132/98 H 97 12/18/17 01:28 12/18/17 01:28 12/18/17 01:28 12/18/17 01:28 12/18/17 01:28 - Notes Notes: PHYSICAL EXAM GENERAL: Alert, interacts well. HEAD: Normocephalic, atraumatic. EYES: Pupils equal, round, and reactive to light. Extraocular movements intact. ENT: Oral mucosa moist, tongue midline. NECK: Full range of motion. Supple. Trachea midline. LUNGS: Clear to auscultation bilaterally, no wheezes, rales, or rhonchi. No respiratory distress. HEART: Regular rate and rhythm. No murmurs, gallops, or rubs. ABDOMEN: Soft, nondistended, nontender. No guarding, rebound, or rigidity.. Bowel sounds present in all 4 quadrants. Back: Negative for CVA tenderness bilaterally. No paralumbar muscle tenderness to palpation bilaterally EXTREMITIES: Moves all 4 extremities spontaneously. No edema, radial and dorsalis pedis pulses 2/4 bilaterally. No cyanosis. NEUROLOGICAL: Alert and oriented x4. Normal speech. PSYCH: Normal affect, normal mood. SKIN: Warm, dry, normal turgor. No rashes or lesions noted. Course - Re-evaluation Re-evalutation: 12/18/17 07:50 Patient is a 32-year-old male who is hemodynamically stable, no acute distress and afebrile. Evidence of glucose within urine as well as hematuria. Labs show evidence of mild elevation in renal function. Renal ultrasound was ordered given benign physical exam findings which showed questionable kidney stone. CT was ordered which shows a 6 mm stone at the UVJ with mild to moderate hydronephrosis. Did review case with urology Dr. Humphreys at [facility] who states that if patient feels well and denies any pain is urinating without any difficulty can be discharged home with strainer to follow-up in clinic today. Patient agrees with plan and requesting to be discharged. Did discuss strict return precautions. Stable for discharge home - Vital Signs Vital signs: Temp Pulse Resp BP Pulse Ox 99.3 F 102 H 18 132/98 H 97 12/18/17 01:28 12/18/17 01:28 12/18/17 01:28 12/18/17 01:28 12/18/17 01:28 - Laboratory Result Diagrams: 12/18/17 03:43 12/18/17 03:43 Laboratory results interpreted by me: 12/18/17 12/18/17 12/18/17 03:43 03:43 03:43 WBC 11.0 H Chloride 119 H Carbon Dioxide 19 L Anion Gap 0 L Creatinine 1.29 H Glucose 346 H AST 16 L Urine Glucose (UA) >=500 H Urine Blood MODERATE H - Diagnostic Test Radiology reviewed: Image reviewed, Reports reviewed Discharge - Discharge Clinical Impression: Kidney stone Condition: Good Disposition: HOME, SELF-CARE Additional Instructions: Call TODAY! [facility] Address: [address] [place] [address] [address], [place] [address] Please return to the emergency department or [place] emergency department if you are not able to urinate, any fevers, chills or worsening pain. You have been sent home with a strainer. Please utilize this when you urinate to see if you pass the stone. KIDNEY STONE: You are passing or have passed a kidney stone. These stones are usually due to increased calcium or uric acid concentrations in your urine. Stones within the kidney itself are not painful. The pain occurs as the stone leaves the kidney to pass down the long tube, called the ureter, leading to the bladder. If the stone is small, it will usually pass by itself. Most patients can pass the stone at home. You will usually receive medications for pain, nausea or vomiting, and sometimes a medication to assist in passing the kidney stone. However, if the pain is very severe or if vomiting prevents you from taking oral pain medications, you may need to return for further treatment. Drink three or four quarts of fluids per day. You will be given pain medication (if needed) and urine strainers. Strain all your urine to see if the stone passes. If your doctor has asked you to bring the stone in for analysis, return with the stone once it has passed. Return if pain or vomiting become severe, if you develop a high fever, if you are unable to pass your urine, or if other unusual symptoms occur. ANTINAUSEA MEDICATION: You have been given a medication to suppress nausea and vomiting. This type of medication can be given as a shot, pill, or suppository. It will usually last for many hours. Pills and shots usually last six to eight hours, suppositories last about 12 hours. For the typical illness, only one or two doses of the medication may be necessary. Mild lightheadedness may occur. This type of medicine can cause drowsiness. Do not drive or operate dangerous machinery while under its influence. Do not mix with alcohol. See your doctor at once if you have muscle spasms or tightness, or uncontrollable motions (particularly of the neck, mouth, or jaw). Persistent vomiting or severe lightheadedness should also be evaluated by the physician. ORAL NARCOTIC MEDICATION: You have been given a prescription for pain control. This medication is a narcotic. It's best taken with food, as nausea can result if taken on an empty stomach. Don't operate machinery or drive within six hours of taking this medication. Do not combine this medicine with alcohol, or with any medication which can cause sedation (such as cold tablets or sleeping pills) unless you get permission from the physician. Narcotics tend to cause constipation. If possible, drink plenty of fluids and eat a diet high in fiber and fruits. Please be aware that prescription narcotics also have the potential for abuse. People become addicted to these medications because of the general sense of wellbeing that they induce. This feeling along with a significant reduction in tension, anxiety, and aggression provides a stimulating seductive quality to these drugs. Once your pain is under control, we encourage you to discard your unused narcotics. FLOMAX (tamsulosin): Flomax is a medicine that shrinks the prostate gland. It helps relieve symptoms of benign prostatic hypertrophy, such as frequent urination, weak stream, and inadequate emptying. It has been shown to dilate the ureter (tube leading from the kidney to the bladder) and help in passing kidney stones Flomax usually causes no side effects. You may notice slight tiredness and dizziness for a few days. Some patients develop nasal congestion. Rarely, impotence can occur. If the symptoms are bothersome and don't improve with continued use, call your doctor. Contact your doctor or return if you have fainting spells, severe weakness or dizziness, shortness of breath, or rash. FOLLOW-UP CARE: If you have been referred to a physician for follow-up care, call the physician s office for an appointment as you were instructed or within the next two days. If you experience worsening or a significant change in your symptoms, notify the physician immediately or return to the Emergency Department at any time for re-evaluation. Prescriptions: Ondansetron HCl [Zofran 4 mg Tablet] 1 - 2 tab PO Q4H PRN #10 tablet PRN Reason: Oxycodone HCl/Acetaminophen [Percocet 5-325 mg Tablet] 1 - 2 tab PO ASDIR PRN # 10 tablet PRN Reason: Tamsulosin HCl [Flomax 0.4 mg Cap.sr] 0.4 mg PO DAILY #7 cap.sr.24h Referrals: [facility] [Provider Group] - 12/18/17
[2017-12-18 03:55] LABS: ABSOLUTE EOSINOPHILS # (AUTO) 0.1 10^3/uL (0.0-0.6); ABSOLUTE LYMPHOCYTES (AUTO) 2.1 10^3/uL (0.5-4.7); ABSOLUTE MONOCYTES (AUTO) 1.3 10^3/uL (0.1-1.4); ABSOLUTE NEUT (AUTO) 7.5 10^3/uL (1.7-8.2); BASOPHILS % (AUTO) 0.4 % (0-2); EOSINOPHILS % (AUTO) 0.6 % (0-6); HEMATOCRIT 44.3 % (37.9-51.0); HEMOGLOBIN 15.4 g/dL (13.5-17.0); LYMPHOCYTES % (AUTO) 19.1 % (13-45); MEAN CORPUSCULAR HEMOGLOBIN 32.4 pg (27.0-33.4); MEAN CORPUSCULAR HGB CONC 34.7 g/dL (32.0-36.0); MEAN CORPUSCULAR VOLUME 93 fl (80-97); MONOCYTES % (AUTO) 11.5 % (3-13); PLATELET COUNT 295 10^3/uL (150-450); RED BLOOD COUNT 4.75 10^6/uL (4.35-5.55); RED CELL DISTRIBUTION WIDTH 12.7 % (11.5-14.0); SEGMENTED NEUTROPHILS % (AUTO) 68.4 % (42-78); TOTAL CELLS COUNTED % (AUTO) 100 %
[2017-12-18 04:04] LABS: APPEARANCE,URINE CLEAR; BILIRUBIN,URINE NEGATIVE (NEGATIVE); COLOR,URINE STRAW; GLUCOSE, URINE >=500 mg/dL (NEGATIVE); KETONES,URINE NEGATIVE (NEGATIVE); LEUKOCYTE ESTERASE,URINE NEGATIVE (NEGATIVE); NITRITE,URINE NEGATIVE (NEGATIVE); PROTEIN,URINE NEGATIVE (NEGATIVE); URINE SPECIFIC GRAVITY 1.006; UROBILINOGEN,URINE NEGATIVE mg/dL (<2.0)
[2017-12-18 04:09] LABS: ALANINE AMINOTRANSFERASE 40 U/L (21-72); ALBUMIN 4.3 g/dL (3.5-5.0); ALKALINE PHOSPHATASE 110 U/L (38-126); ASPARTATE AMINO TRANSFERASE 16 U/L (17-59); BILIRUBIN,DIRECT 0.3 mg/dL (0.0-0.4); BILIRUBIN,TOTAL 0.3 mg/dL (0.2-1.3); BLOOD UREA NITROGEN 11 mg/dL (7-20); GLUCOSE 346 mg/dL (75-110); TOTAL PROTEIN 6.8 g/dL (6.3-8.2)
[2017-12-18 04:17] LABS: CARBON DIOXIDE 19 mmol/L (22-30); CHLORIDE 119 mmol/L (98-107); POTASSIUM 4.1 mmol/L (3.6-5.0); SODIUM 138.2 mmol/L (137-145)
[2017-12-18 04:23] LABS: ANION GAP 0 (5-19)
--- NOTE | 2017-12-18 06:16 | RADIOLOGY REPORT (SQ) ---
EXAM DESCRIPTION: Complete renal ultrasound. CLINICAL HISTORY: left flank pain, one kidney COMPARISON: None. TECHNIQUE: Real-time sonographic images of the retroperitoneum were obtained using a curved multihertz transducer. FINDINGS: The visualized portions of the aorta and IVC are not visualized on this study. The right kidney is absent. The left kidney measures 13.4 cm in length. Moderate left hydronephrosis. No solid renal mass. There is a 2.2 cm echogenic structure in the inferior pole of the right kidney. The urinary bladder is unremarkable. Left ureteral jet identified. IMPRESSION: 1. Moderate left hydronephrosis. 2. The right kidney is absent. 3. 2.2 cm echogenic structure in the inferior left kidney may represent nonobstructing calculus.
--- NOTE | 2017-12-18 06:57 | RADIOLOGY REPORT (SQ) ---
EXAM DESCRIPTION: CT ABDOMEN AND PELVIS WITHOUT CONTRAST CLINICAL HISTORY: Left-sided hydronephrosis on ultrasound. Left-sided abdominal pain. COMPARISON: 07/13/2014 TECHNIQUE: CT of the abdomen and pelvis without IV contrast. Evaluation of the solid organs and vasculature is suboptimal due to lack of IV contrast. DLP: 269.42 mGy-cm FINDINGS: Lung Bases: The visualized lung bases are clear. Bones: No destructive bone lesions identified. Abdomen: Liver: The liver has normal size and density. Gallbladder: No calcified gallstones. Spleen, Pancreas, and Adrenal Glands: The spleen, pancreas, and adrenal glands are unremarkable. Kidneys: There is a 0.6 cm calculus at the left UVJ producing moderate left hydroureter and hydronephrosis. Nonobstructing left renal calculi. The right kidney is absent. Vasculature: The aorta and IVC have normal caliber and position. Stomach: Stable wall thickening of the distal esophagus. Other: No free intraperitoneal air. No free fluid or lymphadenopathy. Pelvis: Bladder: Urinary bladder is unremarkable. Bowel: No dilated loops of large or small bowel. Appendix: Normal appendix. Pelvis: Prostate is not enlarged. IMPRESSION: 1. There is a 0.6 cm obstructing calculus at the left UVJ producing moderate left hydroureter and hydronephrosis. 2. Nonobstructing left nephrolithiasis. 3. The right kidney is absent. 4. Redemonstrated circumferential wall thickening of the distal esophagus. Endoscopy would be recommended if not previously performed. This exam was performed according to our departmental dose-optimization program, which includes automated exposure control, adjustment of the mA and/or kV according to patient size and/or use of iterative reconstruction technique.
[2017-12-18 08:07] VITALS: BP 125/88
== END 2017-12-18 08:05 | disposition home or self-care (01) ==
LOC: ER 01:19
DX: N13.2 Hydronephrosis with renal and ureteral calculous obstruction (principal); E11.9 Type 2 diabetes mellitus without complications; R31.9 Hematuria, unspecified; Q60.0 Renal agenesis, unilateral; I10 Essential (primary) hypertension; F17.200 Nicotine dependence, unspecified, uncomplicated
CPT/HCPCS: 99284; 96360; 96361; 36415; 85025; 80053; 81001; 83036; 76775; 76380; J7030

== ENCOUNTER 2018-01-26 18:51 | Emergency (ER) | payer OTHER ==
[2018-01-26] MEDS ORDERED: FENTANYL CITRATE INJ/PF 100 MCG/2 ML AMPUL IM ONE (19:05)
--- NOTE | 2018-01-26 19:08 | ER Document Report ---
ED Medical Screen (RME) - General Chief Complaint: Flank Pain Stated Complaint: FLANK PAIN Time Seen by Provider: 01/26/18 18:58 Notes: RAPID MEDICAL EVALUATION DISCLOSURE I have seen this patient as part of a Rapid Medical Evaluation and, if applicable, placed any initially appropriate orders. The patient will be seen and fully evaluated, including a full history and physical exam, by a provider ( in Main ED or Fast Track) when a room becomes available. 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 He describes the pain is nonradiating constant. He has tried Aleve for the symptoms. He does not have any nausea vomiting fevers chills. He has chronic dysuria and straining and this is unchanged from baseline today. Denies any history of pyelonephritis but does have a history of kidney stones. EXAM Minimal left upper quadrant and suprapubic TTP Mild left lower quadrant TTP No peritoneal signs TRAVEL OUTSIDE OF THE [place] IN LAST 30 DAYS: No - Related Data Allergies/Adverse Reactions: No Known Allergies Allergy (Verified 01/26/18 19:01) Past Medical History - Past Medical History Cardiac Medical History: Reports: Hx Hypertension Denies: Hx Heart Attack Pulmonary Medical History: Denies: Hx Asthma, Hx Bronchitis, Hx COPD, Hx Pneumonia Neurological Medical History: Denies: Hx Seizures Renal/ Medical History: Denies: Hx Peritoneal Dialysis GI Medical History: Reports: Hx Gastroesophageal Reflux Disease, Hx Ulcer Musculoskeltal Medical History: Denies Hx Arthritis, Reports Hx Musculoskeletal Trauma Psychiatric Medical History: Reports: Hx Bipolar Disorder, Hx Depression Traumatic Medical History: Reports: Hx Fractures - Immunizations Immunizations up to date: No Hx Diphtheria, Pertussis, Tetanus Vaccination: No Physical Exam - Vital signs Vitals: Temp Pulse Resp BP Pulse Ox 98.4 F 92 18 127/97 H 99 01/26/18 19:00 01/26/18 19:00 01/26/18 19:00 01/26/18 19:00 01/26/18 19:00 Course - Vital Signs Vital signs: Temp Pulse Resp BP Pulse Ox 98.4 F 92 18 127/97 H 99 01/26/18 19:00 01/26/18 19:00 01/26/18 19:00 01/26/18 19:00 01/26/18 19:00
--- NOTE | 2018-01-26 19:57 | ER Document Report ---
ED General - General Chief Complaint: Flank Pain Stated Complaint: FLANK PAIN Time Seen by Provider: 01/26/18 18:58 TRAVEL OUTSIDE OF THE [place] 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 Patient states that the pain does not radiate and is described as sharp. Patient states that it does feel he has to push to urinate at times, but has not noticed any hematuria or burning. Patient states that he has been eating and drinking without any difficulties. He has been having normal bowel movements. He has no other concerns or complaints at this time. No injury. Denies any headache, fever, neck pain, URI , sore throat, chest pain, palpitations, syncope, cough, shortness of breath, wheeze, dyspnea, abdominal pain, nausea/vomiting/diarrhea, loss of control of bowel or bladder, numbness/tingling, saddle anesthesia, muscle paralysis/ weakness, or rash. - Related Data Allergies/Adverse Reactions: No Known Allergies Allergy (Verified 01/26/18 19:01) Past Medical History - Social History Smoking Status: Current Some Day Smoker Chew tobacco use (# tins/day): No Frequency of alcohol use: None Drug Abuse: None Family History: DM, Hypertension, Other - History of thromboembolic disease Patient has suicidal ideation: No Patient has homicidal ideation: No - Past Medical History Cardiac Medical History: Reports: Hx Hypertension Denies: Hx Heart Attack Pulmonary Medical History: Denies: Hx Asthma, Hx Bronchitis, Hx COPD, Hx Pneumonia Neurological Medical History: Denies: Hx Seizures Renal/ Medical History: Reports: Hx Kidney Stones. Denies: Hx Peritoneal Dialysis GI Medical History: Reports: Hx Gastroesophageal Reflux Disease, Hx Ulcer Musculoskeltal Medical History: Denies Hx Arthritis, Reports Hx Musculoskeletal Trauma Psychiatric Medical History: Reports: Hx Bipolar Disorder, Hx Depression Traumatic Medical History: Reports: Hx Fractures - Immunizations Immunizations up to date: No Hx Diphtheria, Pertussis, Tetanus Vaccination: No Review of Systems - Review of Systems -: Yes All other systems reviewed and negative Physical Exam - Vital signs Vitals: Temp Pulse Resp BP Pulse Ox 98.4 F 92 18 127/97 H 99 01/26/18 19:00 01/26/18 19:00 01/26/18 19:00 01/26/18 19:00 01/26/18 19:00 - Notes Notes: PHYSICAL EXAMINATION: GENERAL: Well-appearing, well-nourished and in no acute distress. HEAD: Atraumatic, normocephalic. EYES: Pupils equal round and reactive to light, extraocular movements intact, sclera anicteric, conjunctiva are normal. ENT: Nares patent and without discharge. oropharynx clear without exudates. No tonsilar hypertrophy or erythema. Moist mucous membranes. NECK: Normal range of motion, supple without lymphadenopathy LUNGS: Breath sounds clear to auscultation bilaterally and equal. No wheezes rales or rhonchi. HEART: Regular rate and rhythm without murmurs, rubs, gallops. ABDOMEN: Soft, nontender, nondistended abdomen. No guarding, no rebound. No masses appreciated. Normal bowel sounds present. + rt CVA tenderness. No pulsatile mass Musculoskeletal: LE's b/l: FROM to passive/active. Strength 5+/5. No deficits noted. No bony tenderness of extremities. Back: FROM to passive/active. Strength 5+/5. No vertebral point tenderness, stepoffs, or deformities. No other bony tenderness, erythema, swelling, or ecchymosis. SLR negative b/l. No SI jt tenderness. No foot drop Extremities: No cyanosis, clubbing, or edema b/l. Peripheral pulses 2+. Capillary refill less than 2 seconds. NEUROLOGICAL: Normal speech, normal gait. Normal sensory, motor exams. Reflexes 2+ b/l. PSYCH: Normal mood, normal affect. SKIN: Warm, Dry, normal turgor, no rashes or lesions noted. Course - Re-evaluation Re-evalutation: 01/27/18 00:57 I did review this case multiple times with Dr. Tyler. We added a lactic acid and VBG as well as recheck of his CMP. We gave him 2 L fluids and pain medication as well. Patient told us that he did not want to wait for his CMP, and did not want any other workup. Patient states that he wants to leave. I did review with patient that with his elevated blood glucose that has been uncontrolled as well as having an anion gap at -6/-8, pH of 7.14, and his elevated creatinine that he will most likely need admitted. Reviewed the risk and benefit of leaving that his condition can worsen that he could potentially . Also reviewed that he can go into DKA or sepsis as well. Patient is aware of the risk and benefit and still wants to leave. Advised patient that he will need to sign an AMA sheet which he is willing to do. I did thoroughly review with patient that he needs to call urologist tomorrow as well as follow-up with his family doctor immediately to get his sugar under control and his stone taken care of as well as recheck of his blood work. Patient states he does not want to wait for any prescriptions. I did tell him that I want to send him home with diabetic supplies as well as start him on metformin, but patient wanted to sign out AMA and did not want to wait for anything. Again, patient is aware of the risk and benefit of this decision. He is to return to the ED with any worsening/ concerning symptoms otherwise as reviewed. Patient is in agreement. - Vital Signs Vital signs: Temp Pulse Resp BP Pulse Ox 97.8 F 75 18 127/89 H 100 01/27/18 00:28 01/27/18 00:28 01/27/18 00:28 01/27/18 00:28 01/27/18 00:28 - Laboratory Result Diagrams: 01/26/18 19:30 01/26/18 23:59 Laboratory results interpreted by me: 01/26/18 01/26/18 01/26/18 19:30 19:30 20:36 VBG pH VBG HCO3 Chloride 131 H Carbon Dioxide 17 L Anion Gap -6 L Creatinine 1.79 H Est GFR ( Amer) 53 L Est GFR (Non-Af Amer) 44 L Glucose 332 H POC Glucose 378 H Lactic Acid Direct Bilirubin 0.6 H AST Total Protein Albumin Urine Protein >=500 H Urine Glucose (UA) 150 H Urine Blood MODERATE H Urine Bilirubin MODERATE H 01/26/18 01/26/18 01/26/18 22:25 22:25 23:59 VBG pH 7.14 L* VBG HCO3 14.1 L Chloride 137 H Carbon Dioxide 15 L Anion Gap -8 L Creatinine 1.67 H Est GFR ( Amer) 57 L Est GFR (Non-Af Amer) 47 L Glucose 248 H POC Glucose Lactic Acid 0.6 L Direct Bilirubin AST 14 L Total Protein 5.6 L Albumin 3.1 L Urine Protein Urine Glucose (UA) Urine Blood Urine Bilirubin Discharge - Discharge Clinical Impression: Acidosis, Elevated glucose, Ureteral stone Condition: Stable Disposition: AGAINST MEDICAL ADVICE
[2018-01-26 20:05] LABS: ABSOLUTE EOSINOPHILS # (AUTO) 0.2 10^3/uL (0.0-0.6); ABSOLUTE LYMPHOCYTES (AUTO) 1.8 10^3/uL (0.5-4.7); ABSOLUTE MONOCYTES (AUTO) 0.9 10^3/uL (0.1-1.4); ABSOLUTE NEUT (AUTO) 6.2 10^3/uL (1.7-8.2); BASOPHILS % (AUTO) 0.3 % (0-2); HEMATOCRIT 42.9 % (37.9-51.0); HEMOGLOBIN 14.6 g/dL (13.5-17.0); LYMPHOCYTES % (AUTO) 19.9 % (13-45); MEAN CORPUSCULAR HEMOGLOBIN 32.2 pg (27.0-33.4); MEAN CORPUSCULAR HGB CONC 34.1 g/dL (32.0-36.0); MEAN CORPUSCULAR VOLUME 94 fl (80-97); MONOCYTES % (AUTO) 9.9 % (3-13); PLATELET COUNT 317 10^3/uL (150-450); RED BLOOD COUNT 4.55 10^6/uL (4.35-5.55); SEGMENTED NEUTROPHILS % (AUTO) 67.9 % (42-78); TOTAL CELLS COUNTED % (AUTO) 100 %; WHITE BLOOD COUNT 9.2 10^3/uL (4.0-10.5)
[2018-01-26 20:19] LABS: APPEARANCE,URINE CLOUDY; BILIRUBIN,URINE MODERATE (NEGATIVE); COLOR,URINE YELLOW; GLUCOSE, URINE 150 mg/dL (NEGATIVE); KETONES,URINE NEGATIVE (NEGATIVE); LEUKOCYTE ESTERASE,URINE NEGATIVE (NEGATIVE); NITRITE,URINE NEGATIVE (NEGATIVE); PROTEIN,URINE >=500 mg/dL (NEGATIVE); URINE SPECIFIC GRAVITY 1.028; UROBILINOGEN,URINE NEGATIVE mg/dL (<2.0)
[2018-01-26 20:28] LABS: ALANINE AMINOTRANSFERASE 28 U/L (21-72); ALBUMIN 4.1 g/dL (3.5-5.0); ALKALINE PHOSPHATASE 114 U/L (38-126); ASPARTATE AMINO TRANSFERASE 19 U/L (17-59); BILIRUBIN,DIRECT 0.6 mg/dL (0.0-0.4); BILIRUBIN,TOTAL 0.6 mg/dL (0.2-1.3); BLOOD UREA NITROGEN 16 mg/dL (7-20); CALCIUM 9.5 mg/dL (8.4-10.2); CARBON DIOXIDE 17 mmol/L (22-30); CHLORIDE 131 mmol/L (98-107); GLUCOSE 332 mg/dL (75-110); LIPASE 196.6 U/L (23-300); POTASSIUM 3.9 mmol/L (3.6-5.0); SODIUM 142.5 mmol/L (137-145); TOTAL PROTEIN 6.8 g/dL (6.3-8.2)
[2018-01-26 21:04] LABS: ANION GAP -6 (5-19)
[2018-01-26] MEDS ORDERED: NORMAL SALINE 1000 ML 1,000 ML IV ONE ×2 (21:31→22:10)
[2018-01-26] MEDS ORDERED: MORPHINE SULFATE 10 MG/ML INJ IV ONE (21:32)
--- NOTE | 2018-01-26 21:38 | RADIOLOGY REPORT (SQ) ---
EXAM DESCRIPTION: CT LTD RENAL STONE PROTOCOL ON COMPLETED DATE/TIME: 01/26/2018 9:25 pm REASON FOR STUDY: h/o solitary kidney; eval pyelonephritis stone etc COMPARISON: 12/18/2017 TECHNIQUE: CT scan of the abdomen and pelvis performed without intravenous or oral contrast. Images reviewed with lung, soft tissue, and bone windows. Reconstructed coronal and sagittal MPR images revi ewed. All images stored on PACS. All CT scanners at this facility use dose modulation, iterative reconstruction, and/or weight based d osing when appropriate to reduce radiation dose to as low as reasonably achievable (ALARA). [facility]: Dose Right [facility]: CareDose [facility]: Dose Right [facility]: Teradose 4D [facility]: Smart NOVASYS MEDICAL RADIATION DOSE: CT Rad equipment meets quality standard of care and radiation dose reduction techniq ues were employed. CTDIvol: 5.0 mGy. DLP: 243 mGy-cm.mGy. LIMITATIONS: None. FINDINGS: LOWER CHEST: No significant findings. No nodules or infiltrates. NON-CONTRASTED LIVER, SPLEEN, ADRENALS: Evaluation limited by lack of IV contrast. No identified sign ificant masses. PANCREAS: No masses. No peripancreatic inflammatory changes. GALLBLADDER: No identified stones by CT criteria. No inflammatory changes to suggest cholecystitis. RIGHT KIDNEY AND URETER: Absent. LEFT KIDNEY AND URETER: No suspicious masses. Assessment limited by lack of IV contrast. No signifi cant intrarenal calcifications. There continues to be a large calculus at the ureteral vesicle junct ion on the left. Hydronephrosis/hydroureter. AORTA AND RETROPERITONEUM: No aneurysm. No retroperitoneal masses or adenopathy. BOWEL AND PERITONEAL CAVITY: No obvious masses or inflammatory changes. No free fluid. APPENDIX: Not identified. PELVIS, BLADDER, AND ABDOMINAL WALL:There appears to be some thickening of the wall of the bladder. This may be secondary to nondistention BONES: No significant findings. OTHER: No other significant finding. IMPRESSION: Solitary left kidney with hydronephrosis and hydroureter secondary to the presence a 6 m m calculus at the left ureteral vesicle junction. COMMENT: Quality ID # [id number]: Final reports with documentation of one or more dose reduction techniques (e.g., Automated exposure control, adjustment of the mA and/or kV according to patient size, use of iterative reconstruction technique) TECHNICAL DOCUMENTATION: JOB ID: [id number] 1977 [employer]- All Rights Reserved Reading location - IP/workstation name: [email or web address]
[2018-01-26] MEDS ORDERED: TAMSULOSIN HCL 0.4 MG CAP.SR.24H PO ONE (21:49)
[2018-01-26 22:49] LABS: VENOUS BLOOD BASE EXCESS -14.5 mmol/L; VENOUS BLOOD HCO3 14.1 mmol/L (20-32); VENOUS BLOOD PCO2 42.5 mmHg (35-63)
[2018-01-26 22:55] LABS: VENOUS BLOOD PH 7.14 (7.30-7.42)
[2018-01-27 00:28] VITALS: BP 127/89
[2018-01-27 00:35] LABS: ALANINE AMINOTRANSFERASE 22 U/L (21-72); ALBUMIN 3.1 g/dL (3.5-5.0); ALKALINE PHOSPHATASE 93 U/L (38-126); ASPARTATE AMINO TRANSFERASE 14 U/L (17-59); BILIRUBIN,DIRECT 0.2 mg/dL (0.0-0.4); BILIRUBIN,TOTAL 0.2 mg/dL (0.2-1.3); BLOOD UREA NITROGEN 16 mg/dL (7-20); CALCIUM 8.6 mg/dL (8.4-10.2); GLUCOSE 248 mg/dL (75-110); TOTAL PROTEIN 5.6 g/dL (6.3-8.2)
[2018-01-27 00:44] LABS: CARBON DIOXIDE 15 mmol/L (22-30); CHLORIDE 137 mmol/L (98-107); POTASSIUM 3.6 mmol/L (3.6-5.0); SODIUM 144.3 mmol/L (137-145)
[2018-01-27 00:45] LABS: URINE AMPHETAMINES SCREEN NEGATIVE; URINE BARBITURATES SCREEN NEGATIVE; URINE BENZODIAZEPINES SCREEN NEGATIVE; URINE COCAINE SCREEN NEGATIVE; URINE MARIJUANA (THC) SCREEN NEGATIVE; URINE METHADONE SCREEN NEGATIVE; URINE PHENCYCLIDINE SCREEN UNCONFIRMED POSITIVE
[2018-01-27 00:54] LABS: ANION GAP -8 (5-19)
[2018-01-27 15:31] LABS: LEUCINE CRYSTALS,URINE MANY /HPF
== END 2018-01-27 00:30 | disposition left against medical advice (07) ==
LOC: ER 18:51
DX: E87.2 Acidosis (principal); N20.1 Calculus of ureter; E11.65 Type 2 diabetes mellitus with hyperglycemia; R10.9 Unspecified abdominal pain; F17.200 Nicotine dependence, unspecified, uncomplicated; I10 Essential (primary) hypertension
CPT/HCPCS: 99284; 96372; 96361; 96374; 36415; 87086; 82962; 83605; 83690; 85025; 80053; 81001; 80307; 82803; 76380; J3010; J2270; J7030

== ENCOUNTER 2018-01-31 16:53 | Emergency (ER) | payer OTHER ==
[2018-01-31 17:02] VITALS: BP 142/99
[2018-01-31] MEDS ORDERED: DIPH/PERTUSS(ACELL)/TETANUS VAC/PF 0.5 ML SYR (>=10YO) IM ONE (17:41)
[2018-01-31] MEDS ORDERED: LIDOCAINE 1% INJ-PF (10 MG/ML) 30 ML SDV INJ ONE (17:41)
--- NOTE | 2018-01-31 17:43 | ER Document Report ---
ED Head/Face/Scalp Injury - General Chief Complaint: Head Injury without LOC Stated Complaint: FACIAL LACERATION Time Seen by Provider: 01/31/18 17:34 Mode of Arrival: Ambulatory Information source: Patient Notes: Patient is a 32-year-old male who presents to the ER today for laceration to his forehead that occurred last night, approximately 15 hours ago, after he was in his shower sitting on the seat and fell asleep, falling and hitting his head on the shower door. Patient states that he does not know when his last tetanus was. He states that bleeding has just not been able to stop since that time. He denies any loss of consciousness and states that he has had no nausea, vomiting, blurred vision. TRAVEL OUTSIDE OF THE [place] IN LAST 30 DAYS: No - Related Data Allergies/Adverse Reactions: No Known Allergies Allergy (Verified 01/31/18 16:54) Past Medical History - General Information source: Patient - Social History Smoking Status: Current Some Day Smoker Chew tobacco use (# tins/day): No Frequency of alcohol use: None Drug Abuse: None Family History: DM, Hypertension, Other - History of thromboembolic disease Patient has suicidal ideation: No Patient has homicidal ideation: No - Past Medical History Cardiac Medical History: Reports: Hx Hypertension Denies: Hx Heart Attack Pulmonary Medical History: Denies: Hx Asthma, Hx Bronchitis, Hx COPD, Hx Pneumonia Neurological Medical History: Denies: Hx Seizures Renal/ Medical History: Reports: Hx Kidney Stones. Denies: Hx Peritoneal Dialysis GI Medical History: Reports: Hx Gastroesophageal Reflux Disease, Hx Ulcer Musculoskeletal Medical History: Denies Hx Arthritis, Reports Hx Musculoskeletal Trauma Psychiatric Medical History: Reports: Hx Bipolar Disorder, Hx Depression Traumatic Medical History: Reports: Hx Fractures - Immunizations Immunizations up to date: No Hx Diphtheria, Pertussis, Tetanus Vaccination: No Review of Systems - Review of Systems Constitutional: No symptoms reported EENT: No symptoms reported Cardiovascular: No symptoms reported Respiratory: No symptoms reported Gastrointestinal: No symptoms reported Genitourinary: No symptoms reported Male Genitourinary: No symptoms reported Musculoskeletal: No symptoms reported Skin: See HPI Hematologic/Lymphatic: No symptoms reported Neurological/Psychological: No symptoms reported Physical Exam - Vital signs Vitals: Temp Pulse Resp BP Pulse Ox 98.7 F 103 H 20 142/99 H 97 01/31/18 17:00 01/31/18 17:00 01/31/18 17:00 01/31/18 17:00 01/31/18 17:00 - Notes Notes: PHYSICAL EXAMINATION: GENERAL: Well-appearing and in no acute distress. HEAD: See skin below, normocephalic. EYES: Pupils equal round and reactive to light, extraocular movements intact, sclera anicteric, conjunctiva are normal. NECK: Normal range of motion, supple without lymphadenopathy LUNGS: CTAB and equal. No wheezes rales or rhonchi. HEART: Regular rate and rhythm without murmurs EXTREMITIES: Normal range of motion, no pitting edema. No cyanosis. NEUROLOGICAL: Cranial nerves grossly intact. Normal sensory/motor exams. PSYCH: Normal mood, normal affect. SKIN: Warm, Dry, normal turgor, 2.5 cm laceration, vertical to the forehead above the left eyebrow medially, active bleeding Course - Vital Signs Vital signs: Temp Pulse Resp BP Pulse Ox 98.7 F 103 H 20 142/99 H 97 01/31/18 17:00 01/31/18 17:00 01/31/18 17:00 01/31/18 17:00 01/31/18 17:00 Procedures - Laceration/Wound Repair Left Upper Face Time completed: 23:00 Wound length (cm): 2.5 Wound's Depth, Shape: Superficial, Linear Laceration pre-procedure: Sterile PPE donned, Sterile drapes applied, Shur- Clens applied Anesthetic type: 1% Lidocaine Volume Anesthetic (mLs): 5 Wound explored: Clean Irrigated w/ Saline (mLs): 30 Wound Repaired With: Sutures Suture Size/Type: 5:0, Nylon Number of Sutures: 6 Layer Closure?: No Post-procedure wound care: Sterile dressing applied Post-procedure NV exam normal: Yes Complications: No Discharge - Discharge Clinical Impression: Laceration of forehead Qualifiers: Encounter type: initial encounter Qualified Code(s): S01.81XA - Laceration without foreign body of other part of head, initial encounter Condition: Stable Disposition: HOME, SELF-CARE Instructions: Laceration Care ([facility]), Soap Cleansing ([facility]), Tetanus Immunization Given ([facility]) Additional Instructions: Return immediately for any new or worsening symptoms. Follow up with primary care provider, call tomorrow to make followup appointment. Please be seen in 7 days to have sutures removed. Prescriptions: Cephalexin Monohydrate [Keflex 250 mg Capsule] 250 mg PO BID #10 capsule
== END 2018-01-31 18:59 | disposition home or self-care (01) ==
LOC: ER 16:53
DX: S01.81XA Laceration without foreign body of other part of head, initial encounter (principal); W18.2XXA Fall in (into) shower or empty bathtub, initial encounter; F17.200 Nicotine dependence, unspecified, uncomplicated
CPT/HCPCS: 12011; 99283; 90471; 90715; J3490

== ENCOUNTER 2018-02-09 10:17 | Emergency (ER) | payer OTHER ==
[2018-02-09 10:23] VITALS: BP 124/85
--- NOTE | 2018-02-09 11:04 | ER Document Report ---
HPI - HPI Pain Level: Denies Notes: Patient is a 32-year-old male who presents to the ED for suture removal status post placement about a week ago to his forehead. Patient states he had 6 sutures placed and needs then removed. Patient states that the wound has been healing appropriately and he has not noticed any redness, pain, discharge, abscess, or streaks. He is eating and drinking without any difficulties. He has no other concerns or complaints at this time. Denies any headache, fever, neck pain, changes in vision/speech/mentation/hearing, URI, sore throat, chest pain, palpitations, syncope, cough, shortness of breath, wheeze, dyspnea, abdominal pain, nausea/vomiting/diarrhea, urinary retention, dysuria, hematuria , loss of control of bowel or bladder, numbness/tingling, muscle paralysis/ weakness, or rash. - ROS Systems Reviewed and Negative: Yes All other systems reviewed and negative Past Medical History - Social History Smoking Status: Unknown if Ever Smoked Family History: DM, Hypertension, Other - History of thromboembolic disease - Past Medical History Cardiac Medical History: Reports: Hx Hypertension Denies: Hx Heart Attack Pulmonary Medical History: Denies: Hx Asthma, Hx Bronchitis, Hx COPD, Hx Pneumonia Neurological Medical History: Denies: Hx Seizures Renal/ Medical History: Reports: Hx Kidney Stones. Denies: Hx Peritoneal Dialysis GI Medical History: Reports: Hx Gastroesophageal Reflux Disease, Hx Ulcer Musculoskeletal Medical History: Denies Hx Arthritis, Reports Hx Musculoskeletal Trauma Psychiatric Medical History: Reports: Hx Bipolar Disorder, Hx Depression Traumatic Medical History: Reports: Hx Fractures - Immunizations Immunizations up to date: No Hx Diphtheria, Pertussis, Tetanus Vaccination: No Vertical Provider Document - CONSTITUTIONAL Agree With Documented VS: Yes Notes: PHYSICAL EXAMINATION: GENERAL: Well-appearing, well-nourished and in no acute distress. HEAD: Atraumatic, normocephalic. EYES: Pupils equal round and reactive to light, extraocular movements intact, sclera anicteric, conjunctiva are normal. LUNGS: Breath sounds clear to auscultation bilaterally and equal. No wheezes rales or rhonchi. HEART: Regular rate and rhythm without murmurs, rubs, gallops. NEUROLOGICAL: Cranial nerves grossly intact. Normal speech, normal gait. Normal sensory, motor exams PSYCH: Normal mood, normal affect. SKIN: forehead: there is an approx 2-2.5cm laceration noted with [address] Appears well-healed w/o any erythema, warmth, swelling, purulence, abscess, or discharge. No wound dehiscence. - INFECTION CONTROL TRAVEL OUTSIDE OF THE [place] IN LAST 30 DAYS: No Course - Re-evaluation Re-evalutation: 02/09/18 11:01 Patient is an afebrile, well-hydrated, 32-year-old male who presents to the ED for suture removal status post laceration to his forehead about a week ago. Vitals are acceptable without any significant tachycardia, tachypnea, or hypoxia. PE is otherwise unremarkable. There is no evidence of wound dehiscence or infection at this time. Sutures were removed successfully without any complications and Steri-Strips are placed by our PCT, Enedina. Wound instructions reviewed. Conservative measures for symptoms. Recheck with your PCM in 3-5 days. Return to the ED with any worsening/concerning symptoms otherwise as reviewed in discharge. Patient is in agreement. - Vital Signs Vital signs: Temp Pulse Resp BP Pulse Ox 98.6 F 93 18 124/85 99 02/09/18 10:21 02/09/18 10:21 02/09/18 10:21 02/09/18 10:21 02/09/18 10:21 Discharge - Discharge Clinical Impression: Visit for suture removal Condition: Stable Disposition: HOME, SELF-CARE Instructions: Suture Removal Additional Instructions: Keep the skin clean Wash with soap and water but do not scrub You may start to use scar cream once there is no more drainage and the wound is close to fully being healed. Recheck with your PCM in 3-5 days Return to the ED with any worsening symptoms and/or development of fever, headache, chest pain, palpitations, syncope, shortness of breath, trouble breathing, abdominal pain, n/v/d, abscess, purulent discharge, red streaks, worsening swelling, or other worsening symptoms that are concerning to you. Referrals: [facility] [Provider Group] - Follow up as needed [facility] [Provider Group] - Follow up as needed
== END 2018-02-09 11:12 | disposition home or self-care (01) ==
LOC: ER 10:17
DX: S01.81XD Laceration without foreign body of other part of head, subsequent encounter (principal); X58.XXXD Exposure to other specified factors, subsequent encounter; I10 Essential (primary) hypertension

== ENCOUNTER 2018-02-13 13:16 | Emergency (ER) | payer OTHER ==
--- NOTE | 2018-02-13 13:30 | ER Document Report ---
HPI - HPI Pain Level: 3 Past Medical History - Social History Family History: DM, Hypertension, Other - History of thromboembolic disease - Past Medical History Cardiac Medical History: Reports: Hx Hypertension Denies: Hx Heart Attack Pulmonary Medical History: Denies: Hx Asthma, Hx Bronchitis, Hx COPD, Hx Pneumonia Neurological Medical History: Denies: Hx Seizures Renal/ Medical History: Reports: Hx Kidney Stones. Denies: Hx Peritoneal Dialysis GI Medical History: Reports: Hx Gastroesophageal Reflux Disease, Hx Ulcer Musculoskeletal Medical History: Denies Hx Arthritis, Reports Hx Musculoskeletal Trauma Psychiatric Medical History: Reports: Hx Bipolar Disorder, Hx Depression Traumatic Medical History: Reports: Hx Fractures - Immunizations Immunizations up to date: No Hx Diphtheria, Pertussis, Tetanus Vaccination: No Vertical Provider Document - INFECTION CONTROL TRAVEL OUTSIDE OF THE [place] IN LAST 30 DAYS: No Course - Vital Signs Vital signs: Temp Pulse Resp BP Pulse Ox 98.7 F 100 16 115/76 97 02/13/18 13:21 02/13/18 13:21 02/13/18 13:21 02/13/18 13:21 02/13/18 13:21
--- NOTE | 2018-02-13 13:35 | ER Document Report ---
ED Medical Screen (RME) - General Chief Complaint: Facial Injury Stated Complaint: FALL/HEAD INJURY Time Seen by Provider: 02/13/18 13:30 Mode of Arrival: Ambulatory Information source: Patient Notes: 32-year-old male presents to the emergency room needing stitches above his right eye. He states he fell forward onto his keyboard. I noted that he was staggering back unsteady on gait and has horizontal nystagmus and is zoning out and not listening to me are able to communicate. He initially denied taking any drugs. I looked in his previous records and he has been positive for PCP and opiates. I did go back into the room at this point in asked him what he did take this morning and he took about 60 #20 mg dextromethorphan's. I called poison control who states that DXM can give a false positive on PCP and that it would be supportive care. To provide fluids which she is already drinking water and if he sees his treat with benzodiazepines. Report has been given to Dr. Sauceda. TRAVEL OUTSIDE OF THE [place] IN LAST 30 DAYS: No - Related Data Allergies/Adverse Reactions: No Known Allergies Allergy (Verified 01/31/18 16:54) Past Medical History - Past Medical History Cardiac Medical History: Reports: Hx Hypertension Denies: Hx Heart Attack Pulmonary Medical History: Denies: Hx Asthma, Hx Bronchitis, Hx COPD, Hx Pneumonia Neurological Medical History: Denies: Hx Seizures Renal/ Medical History: Reports: Hx Kidney Stones. Denies: Hx Peritoneal Dialysis GI Medical History: Reports: Hx Gastroesophageal Reflux Disease, Hx Ulcer Musculoskeltal Medical History: Denies Hx Arthritis, Reports Hx Musculoskeletal Trauma Psychiatric Medical History: Reports: Hx Bipolar Disorder, Hx Depression Traumatic Medical History: Reports: Hx Fractures - Immunizations Immunizations up to date: No Hx Diphtheria, Pertussis, Tetanus Vaccination: No Physical Exam - Vital signs Vitals: Temp Pulse Resp BP Pulse Ox 98.7 F 100 16 115/76 97 02/13/18 13:21 02/13/18 13:21 02/13/18 13:21 02/13/18 13:21 02/13/18 13:21 Course - Vital Signs Vital signs: Temp Pulse Resp BP Pulse Ox 98.7 F 100 16 115/76 97 02/13/18 13:21 02/13/18 13:21 02/13/18 13:21 02/13/18 13:21 02/13/18 13:21
--- NOTE | 2018-02-13 14:10 | ER Document Report ---
ED Head/Face/Scalp Injury - General Chief Complaint: Facial Injury Stated Complaint: FALL/HEAD INJURY Time Seen by Provider: 02/13/18 13:30 Mode of Arrival: Ambulatory Information source: Patient Cannot obtain history due to: Altered mental status TRAVEL OUTSIDE OF THE [place] IN LAST 30 DAYS: No - HPI Context: Fell - Related Data Allergies/Adverse Reactions: No Known Allergies Allergy (Verified 01/31/18 16:54) Past Medical History - General Information source: Patient - Social History Smoking Status: Current Every Day Smoker Chew tobacco use (# tins/day): No Frequency of alcohol use: None Drug Abuse: None Family History: DM, Hypertension, Other - History of thromboembolic disease Patient has suicidal ideation: No Patient has homicidal ideation: No - Past Medical History Cardiac Medical History: Reports: Hx Hypertension Denies: Hx Heart Attack Pulmonary Medical History: Denies: Hx Asthma, Hx Bronchitis, Hx COPD, Hx Pneumonia Neurological Medical History: Denies: Hx Seizures Renal/ Medical History: Reports: Hx Kidney Stones. Denies: Hx Peritoneal Dialysis GI Medical History: Reports: Hx Gastroesophageal Reflux Disease, Hx Ulcer Musculoskeletal Medical History: Denies Hx Arthritis, Reports Hx Musculoskeletal Trauma Psychiatric Medical History: Reports: Hx Bipolar Disorder, Hx Depression Traumatic Medical History: Reports: Hx Fractures - Immunizations Immunizations up to date: No Hx Diphtheria, Pertussis, Tetanus Vaccination: No Physical Exam - Vital signs Vitals: Temp Pulse Resp BP Pulse Ox 98.7 F 100 16 115/76 97 02/13/18 13:21 02/13/18 13:21 02/13/18 13:21 02/13/18 13:21 02/13/18 13:21 Interpretation: Tachycardic. No: Hypotensive, Hypoxic, Tachypneic Course - Vital Signs Vital signs: Temp Pulse Resp BP Pulse Ox 98.7 F 100 17 137/97 H 100 02/13/18 13:21 02/13/18 13:21 02/13/18 14:32 02/13/18 14:32 02/13/18 14:32 - Laboratory Result Diagrams: 02/13/18 14:37 02/13/18 14:37 Laboratory results interpreted by me: 02/13/18 02/13/18 14:37 14:37 RBC 4.16 L Hgb 13.3 L Lymphocytes % 11.2 L Chloride 134 H Carbon Dioxide 17 L Anion Gap -6 L Glucose 237 H Calcium 8.3 L Total Bilirubin 1.4 H Direct Bilirubin 1.4 H Total Protein 5.9 L Salicylates < 1.0 L Acetaminophen < 10 L - EKG Interpretation by Me EKG shows normal: Sinus rhythm, [place], ST-T Waves. abnormal: Intervals, QRS Complexes Rate: Normal Rhythm: NSR [place]/QRS: RBBB, LAHB/LAFB Heart block present: 1st Degree Procedures - Laceration/Wound Repair Right Face Time completed: 17:20 Wound length (cm): 2.5 Wound's Depth, Shape: Superficial, Linear, Contused tissue Laceration pre-procedure: Sterile PPE donned Anesthetic type: 1% Lidocaine w/epi Volume Anesthetic (mLs): 1 Wound explored: Clean Irrigated w/ Saline (mLs): 30 Wound Debrided: Minimal Wound Repaired With: Sutures Suture Size/Type: 5:0, Prolene Layer Closure?: No Post-procedure NV exam normal: Yes Complications: No Discharge - Discharge Clinical Impression: Left against medical advice Facial laceration Qualifiers: Encounter type: initial encounter Qualified Code(s): S01.81XA - Laceration without foreign body of other part of head, initial encounter Overdose of antitussive Qualifiers: Encounter type: initial encounter Injury intent: undetermined intent Qualified Code(s): T48.3X4A - Poisoning by antitussives, undetermined, initial encounter Condition: Stable Disposition: AGAINST MEDICAL ADVICE Instructions: Antibiotic Ointment Protection ([facility]), Instructions for Home Care Following a Drug Overdose ([facility]), Laceration Care ([facility]) Additional Instructions: FOLLOW INSTRUCTIONS FOR WOUND CARE. FOLLOW UP FOR SUTURE REMOVAL IN 5 DAYS. CONTINUE YOUR USUAL MEDS. DON'T TAKE ANY NON-PRESCRIPTION MEDS EXCEPT DIRECTED ON PACKAGE. YOU HAVE BEEN ADVISED TO STAY IN THE E.R. FOR FURTHER TREATMENT AND EVALUATION, BUT HAVE ELECTED TO REFUSE. YOU UNDERSTAND THAT FAILURE TO GET PROPER AND COMPLETE EVALUATION AND TREATMENT COULD RESULT IN SEVERE ILLNESS OR . PLEASE RETURN TO E.R. IF YOU CHANGE YOUR MIND OR IF ANY PROBLEMS ARISE, ANY TIME.
[2018-02-13 14:36] LABS: URINE AMPHETAMINES SCREEN NEGATIVE; URINE BARBITURATES SCREEN NEGATIVE; URINE BENZODIAZEPINES SCREEN NEGATIVE; URINE COCAINE SCREEN NEGATIVE; URINE MARIJUANA (THC) SCREEN NEGATIVE; URINE METHADONE SCREEN NEGATIVE; URINE PHENCYCLIDINE SCREEN UNCONFIRMED POSITIVE
--- NOTE | 2018-02-13 14:38 | RADIOLOGY REPORT (SQ) ---
EXAM DESCRIPTION: CT HEAD WITHOUT COMPLETED DATE/TIME: 02/13/2018 2:26 pm REASON FOR STUDY: headache COMPARISON: None. TECHNIQUE: Axial images acquired through the brain without intravenous contrast. Images reviewed wi th bone, brain and subdural windows. Additional sagittal and coronal reconstructions were generated. Images stored on PACS. All CT scanners at this facility use dose modulation, iterative reconstruction, and/or weight based d osing when appropriate to reduce radiation dose to as low as reasonably achievable (ALARA). [facility]: Dose Right [facility]: CareDose [facility]: Dose Right [facility]: Teradose 4D [facility]: [employer] RADIATION DOSE: CT Rad equipment meets quality standard of care and radiation dose reduction techniq ues were employed. CTDIvol: 53.2 mGy. DLP: 1044 mGy-cm. mGy. LIMITATIONS: None. FINDINGS: VENTRICLES: Normal size and contour. CEREBRUM: No masses. No hemorrhage. No midline shift. No evidence for acute infarction. Normal gra y/white matter differentiation. No areas of low density in the white matter. CEREBELLUM: No masses. No hemorrhage. No alteration of density. No evidence for acute infarction. EXTRAAXIAL SPACES: No fluid collections. No masses. ORBITS AND GLOBE: No intra- or extraconal masses. Normal contour of globe without masses. CALVARIUM: No fracture. PARANASAL SINUSES: No fluid or mucosal thickening. SOFT TISSUES: No mass or hematoma. OTHER: No other significant finding. IMPRESSION: NORMAL BRAIN CT WITHOUT CONTRAST. EVIDENCE OF ACUTE STROKE: NO. COMMENT: Quality ID # [id number]: Final reports with documentation of one or more dose reduction techniques (e.g., Automated exposure control, adjustment of the mA and/or kV according to patient size, use of iterative reconstruction technique) TECHNICAL DOCUMENTATION: JOB ID: [id number] [employer]- All Rights Reserved Reading location - IP/workstation name: [facility][email or web address]
--- NOTE | 2018-02-13 14:39 | RADIOLOGY REPORT (SQ) ---
EXAM DESCRIPTION: CT FACIAL AREA WITHOUT COMPLETED DATE/TIME: 02/13/2018 2:29 pm REASON FOR STUDY: FACIAL INJURY COMPARISON: None. TECHNIQUE: Noncontrasted images through the facial bones and orbits windowed for bone and soft tissu e. Additional coronal and sagittal reconstructed images reviewed. All images stored on PACS. All CT scanners at this facility use dose modulation, iterative reconstruction, and/or weight based d osing when appropriate to reduce radiation dose to as low as reasonably achievable (ALARA). [facility]: Dose Right [facility]: CareDose [facility]: Dose Right [facility]: Teradose 4D [facility]: PercSys RADIATION DOSE: CT Rad equipment meets quality standard of care and radiation dose reduction techniq ues were employed. CTDIvol: 30.4 mGy. DLP: 570 mGy-cm. mGy. LIMITATIONS: None. FINDINGS: FACIAL BONES: No fracture or bone lesion. ORBITS: Intact. No fracture. Symmetric intact globes and retroorbital soft tissues. PARANASAL SINUSES: Clear. No significant mucosal thickening, mass or fluid. No nasal polyps. Maxill maryann sinus outlets are patent. SOFT TISSUES: No mass or edema. INFERIOR BRAIN: Limited view. No acute findings. OTHER: Reversal the normal cervical lordotic curve. IMPRESSION: NO ACUTE FINDINGS. Reversal the normal cervical lordotic curve. TECHNICAL DOCUMENTATION: JOB ID: [id number] Quality ID # [id number]: Final reports with documentation of one or more dose reduction techniques (e.g., Au tomated exposure control, adjustment of the mA and/or kV according to patient size, use of iterative reconstruction technique) 2010 [employer]- All Rights Reserved Reading location - IP/workstation name: [email or web address]
[2018-02-13 14:51] LABS: ABSOLUTE EOSINOPHILS # (AUTO) 0.3 10^3/uL (0.0-0.6); ABSOLUTE MONOCYTES (AUTO) 0.8 10^3/uL (0.1-1.4); ABSOLUTE NEUT (AUTO) 6.6 10^3/uL (1.7-8.2); BASOPHILS % (AUTO) 0.3 % (0-2); EOSINOPHILS % (AUTO) 2.9 % (0-6); HEMATOCRIT 39.2 % (37.9-51.0); HEMOGLOBIN 13.3 g/dL (13.5-17.0); LYMPHOCYTES % (AUTO) 11.2 % (13-45); MEAN CORPUSCULAR HEMOGLOBIN 31.9 pg (27.0-33.4); MEAN CORPUSCULAR HGB CONC 33.8 g/dL (32.0-36.0); MEAN CORPUSCULAR VOLUME 94 fl (80-97); PLATELET COUNT 314 10^3/uL (150-450); RED BLOOD COUNT 4.16 10^6/uL (4.35-5.55); RED CELL DISTRIBUTION WIDTH 13.8 % (11.5-14.0); SEGMENTED NEUTROPHILS % (AUTO) 76.6 % (42-78); TOTAL CELLS COUNTED % (AUTO) 100 %; WHITE BLOOD COUNT 8.6 10^3/uL (4.0-10.5)
[2018-02-13] MEDS ORDERED: LIDOCAINE 1%/EPINEPHRINE INJ 20 ML VIAL INJ ONE (15:09)
[2018-02-13] MEDS ORDERED: DIPH/PERTUSS(ACELL)/TETANUS VAC/PF 0.5 ML SYR (>=10YO) IM ONE (15:10)
[2018-02-13 15:12] LABS: ALANINE AMINOTRANSFERASE 35 U/L (21-72); ALBUMIN 3.6 g/dL (3.5-5.0); ALKALINE PHOSPHATASE 114 U/L (38-126); ASPARTATE AMINO TRANSFERASE 19 U/L (17-59); BILIRUBIN,DIRECT 1.4 mg/dL (0.0-0.4); BILIRUBIN,TOTAL 1.4 mg/dL (0.2-1.3); BLOOD UREA NITROGEN 7 mg/dL (7-20); CALCIUM 8.3 mg/dL (8.4-10.2); GLUCOSE 237 mg/dL (75-110); TOTAL PROTEIN 5.9 g/dL (6.3-8.2)
[2018-02-13 15:13] LABS: ACETAMINOPHEN < 10 ug/mL (10-30); ALCOHOL < 10 mg/dL (NONE DETECTED); SALICYLATE < 1.0 mg/dL (2.0-20.0)
[2018-02-13 15:25] LABS: CARBON DIOXIDE 17 mmol/L (22-30); CHLORIDE 134 mmol/L (98-107); SODIUM 144.7 mmol/L (137-145)
[2018-02-13 15:31] LABS: ANION GAP -6 (5-19)
[2018-02-13] MEDS ORDERED: NORMAL SALINE 1000 ML 1,000 ML IV PRN ×2 (16:07→17:06)
[2018-02-13 19:37] VITALS: BP 135/105
--- NOTE | 2018-02-13 22:30 | EKG REPORT ---
SEVERITY:- ABNORMAL ECG - SINUS RHYTHM FIRST DEGREE AV BLOCK RBBB AND LAFB : Confirmed by: Rajni Robbins MD 13-Feb-2018 22:29:50
== END 2018-02-13 18:30 | disposition left against medical advice (07) ==
LOC: ER 13:16
DX: W19.XXXA Unspecified fall, initial encounter (principal); W22.09XA Striking against other stationary object, initial encounter; S01.81XA Laceration without foreign body of other part of head, initial encounter; T48.3X4A Poisoning by antitussives, undetermined, initial encounter; I10 Essential (primary) hypertension; I44.0 Atrioventricular block, first degree; I45.2 Bifascicular block; F17.200 Nicotine dependence, unspecified, uncomplicated; R00.0 Tachycardia, unspecified; Z53.20 Procedure and treatment not carried out because of patient's decision for unspecified reasons
CPT/HCPCS: 93005; 99284; 96360; 90471; 36415; 80307 ×4; 85025; 80053; 70450; 70486; 90715; 93010; 12011; J3490; J7030

== ENCOUNTER 2018-02-16 14:47 | Emergency (ER) | payer OTHER ==
[2018-02-16 14:54] VITALS: BP 130/91
--- NOTE | 2018-02-16 15:11 | ER Document Report ---
ED Suture/Wound Recheck - General Chief Complaint: Suture Removal Stated Complaint: SUTURE REMOVAL/RIGHT EYEBROW Time Seen by Provider: 02/16/18 15:08 TRAVEL OUTSIDE OF THE [place] IN LAST 30 DAYS: No - HPI Patient complains to provider of: Patient presents for sutureremoval, right informed laceration of 7 days ago - Related Data Allergies/Adverse Reactions: No Known Allergies Allergy (Verified 02/16/18 14:48) Past Medical History - Social History Smoking Status: Smoker,Current Status Unk Family History: DM, Hypertension, Other - History of thromboembolic disease - Past Medical History Cardiac Medical History: Reports: Hx Hypertension Denies: Hx Heart Attack Pulmonary Medical History: Denies: Hx Asthma, Hx Bronchitis, Hx COPD, Hx Pneumonia Neurological Medical History: Denies: Hx Seizures Renal/ Medical History: Reports: Hx Kidney Stones. Denies: Hx Peritoneal Dialysis GI Medical History: Reports: Hx Gastroesophageal Reflux Disease, Hx Ulcer Musculoskeletal Medical History: Denies Hx Arthritis, Reports Hx Musculoskeletal Trauma Psychiatric Medical History: Reports: Hx Bipolar Disorder, Hx Depression Traumatic Medical History: Reports: Hx Fractures - Immunizations Immunizations up to date: No Hx Diphtheria, Pertussis, Tetanus Vaccination: No Review of Systems - Review of Systems Notes: No drainage no fever Physical Exam - Vital signs Vitals: Temp Pulse Resp BP Pulse Ox 98.1 F 89 12 130/91 H 98 02/16/18 14:53 02/16/18 14:53 02/16/18 14:53 02/16/18 14:53 02/16/18 14:53 - Notes Notes: Well-healed, no infection Course - Re-evaluation Re-evalutation: 02/16/18 15:14 Sutures removed, no complications - Vital Signs Vital signs: Temp Pulse Resp BP Pulse Ox 98.1 F 89 12 130/91 H 98 02/16/18 14:53 02/16/18 14:53 02/16/18 14:53 02/16/18 14:53 02/16/18 14:53 Discharge - Discharge Clinical Impression: Visit for suture removal Disposition: HOME, SELF-CARE
== END 2018-02-16 15:41 | disposition home or self-care (01) ==
LOC: ER 14:47
DX: S01.111D Laceration without foreign body of right eyelid and periocular area, subsequent encounter (principal); X58.XXXD Exposure to other specified factors, subsequent encounter; I10 Essential (primary) hypertension

== ENCOUNTER 2018-02-21 02:01 | Emergency (ER) | payer OTHER ==
--- NOTE | 2018-02-21 02:32 | ER Document Report ---
ED Substance Abuse / Acc. OD - General Chief Complaint: Possible Overdose Stated Complaint: POSSIBLE OVERDOSE Time Seen by Provider: 02/21/18 02:22 Notes: Patient is a 32-year-old male comes emergency department for chief complaint of overdose. Patient states that at 5 PM he took 60 tablets of 20 mg extended release Mucinex, he states that he has taken Mucinex in the past to get high, he states that he noticed on the bottles of extended release and he started to feel jittery and have a really dry mouth and he became worried and called the ambulance. He denies suicidal ideations, he states that he was just trying to "get high". Past medical history includes diagnosis of borderline personality disorder, he is not on any psychiatric medications, only other reported medical history of type 2 diabetes. He lives with his grandparents. He denies any alcohol or recreational drugs otherwise. TRAVEL OUTSIDE OF THE [place] IN LAST 30 DAYS: No - Related Data Allergies/Adverse Reactions: No Known Allergies Allergy (Verified 02/21/18 02:15) Past Medical History - General Information source: Patient - Social History Smoking Status: Never Smoker Frequency of alcohol use: None Drug Abuse: Marijuana, Other - Jpgf-sam-sdiqgwo medications Lives with: Family Family History: DM, Hypertension, Other - History of thromboembolic disease Patient has suicidal ideation: No Patient has homicidal ideation: No - Past Medical History Cardiac Medical History: Reports: Hx Hypertension Denies: Hx Heart Attack Pulmonary Medical History: Denies: Hx Asthma, Hx Bronchitis, Hx COPD, Hx Pneumonia Neurological Medical History: Denies: Hx Seizures Endocrine Medical History: Reports: Hx Diabetes Mellitus Type 2 Renal/ Medical History: Reports: Hx Kidney Stones. Denies: Hx Peritoneal Dialysis GI Medical History: Reports: Hx Gastroesophageal Reflux Disease, Hx Ulcer Musculoskeletal Medical History: Denies Hx Arthritis, Reports Hx Musculoskeletal Trauma Psychiatric Medical History: Reports: Hx Bipolar Disorder, Hx Depression Traumatic Medical History: Reports: Hx Fractures - Immunizations Immunizations up to date: No Hx Diphtheria, Pertussis, Tetanus Vaccination: No Review of Systems - Review of Systems Constitutional: See HPI EENT: See HPI Cardiovascular: No symptoms reported Respiratory: No symptoms reported Gastrointestinal: No symptoms reported Genitourinary: No symptoms reported Male Genitourinary: No symptoms reported Musculoskeletal: No symptoms reported Skin: No symptoms reported Hematologic/Lymphatic: No symptoms reported Neurological/Psychological: See HPI Physical Exam - Vital signs Vitals: Temp Pulse Resp BP Pulse Ox 98.8 F 108 H 18 147/101 H 98 02/21/18 02:17 02/21/18 02:17 02/21/18 02:17 02/21/18 02:17 02/21/18 02:17 - Notes Notes: GENERAL: Alert. No acute distress. HEAD: Normocephalic, atraumatic. EYES: Pupils slightly dilated. Extraocular movements intact. ENT: Oral mucosa very dry, tongue midline. [Nares patent, no nasal septal hematoma, TM's intact.] NECK: Full range of motion. Supple. Trachea midline. LUNGS: Clear to auscultation bilaterally, no wheezes, rales, or rhonchi. No respiratory distress. HEART: Borderline tachycardia, no murmur. ABDOMEN: Soft, non-tender. Non-distended. Bowel sounds present in all 4 quadrants. EXTREMITIES: Moves all 4 extremities spontaneously. No edema, normal radial and dorsalis pedis pulses bilaterally. No cyanosis. BACK: no cervical, thoracic, lumbar midline tenderness. No saddle anesthesia, normal distal neurovascular exam. NEUROLOGICAL: Alert and oriented x3. Normal speech. [cranial nerves II through XII grossly intact]. PSYCH: Patient jittery, occasionally laughing nervously, otherwise he does make good eye contact and does not appear to be responding to any internal stimuli. No evidence of hallucinations. SKIN: Warm, dry, normal turgor. No rashes or lesions noted. Course - Re-evaluation Re-evalutation: 02/21/18 02:38 Spoke with Alfonso at poison control, his advice is that patient will most likely have symptoms from dextromethorphan but less likely the guaifenesin, he recommends IV fluids, as needed benzodiazepines especially for elevated heart rate and jitteriness, recommends EKG, no additional recommendations. Advises that patient will probably have symptoms for about 12 hours. Patient to be monitored until 5 AM. EKG does not show elevated QTC or OK interval. Sinus rhythm at a rate of 99. No significant change from prior EKG. CBC shows minimal leukocytosis, nonspecific. Chemistry shows low bicarbonate, low anion gap, low chloride. Mild elevation of renal functioning. Patient was given first 1 L of normal saline then 1 L of lactated Ringer's. Tachycardia resolved. I discussed with patient repeating this, however it was noted that previous chemistries are almost identical and patient declined this. I discussed at length with patient. Patient admits that he stopped going to [facility], he is not currently on any psychiatric medications, he states that he does need something to keep him steady so he does not abuse medications specifically dextromethorphan. He states he still lives with grandparents and this is going well. He states he has no suicidal or homicidal intentions, he was just trying to get high, he feels much better now after fluids and he wants to go home. He declines talking to psychiatry this morning. He states that he will follow-up with [facility], he states he is ready to go home but he will return if anything worsens or if he develops any concerning symptoms. Discharged with return precautions, stable at time of discharge with no signs of distress. - Vital Signs Vital signs: Temp Pulse Resp BP Pulse Ox 97.8 F 100 20 144/96 H 99 02/21/18 04:39 02/21/18 04:39 02/21/18 04:39 02/21/18 04:39 02/21/18 04:39 - Laboratory Result Diagrams: 02/21/18 02:31 02/21/18 02:31 Laboratory results interpreted by me: 02/21/18 02/21/18 02/21/18 02:31 02:31 02:31 WBC 11.8 H Absolute Neutrophils 8.3 H Chloride 120 H Carbon Dioxide 19 L Anion Gap 2 L Creatinine 1.32 H Glucose 56 L Total Bilirubin 1.7 H Direct Bilirubin 1.7 H Alkaline Phosphatase 129 H Urine Bilirubin MODERATE H Salicylates < 1.0 L Acetaminophen < 10 L Discharge - Discharge Clinical Impression: Substance abuse Condition: Stable Disposition: HOME, SELF-CARE Additional Instructions: Do not take any medications beyond their prescribed doses. Do not take any illegal substances, these are dangerous and there is a high risk of or other complications. Follow-up with [facility] services listed below for additional evaluation and management including treatment for substance abuse. Return if you worsen including vomiting, passing out, difficulty breathing, or something is not right. Referrals: [facility] [Provider Group] - Follow up tomorrow
[2018-02-21] MEDS ORDERED: NORMAL SALINE 1000 ML 1,000 ML IV ONE (02:36)
[2018-02-21 02:59] LABS: ABSOLUTE BASOPHILS # (AUTO) 0.1 10^3/uL (0.0-0.2); ABSOLUTE EOSINOPHILS # (AUTO) 0.1 10^3/uL (0.0-0.6); ABSOLUTE LYMPHOCYTES (AUTO) 2.1 10^3/uL (0.5-4.7); ABSOLUTE MONOCYTES (AUTO) 1.2 10^3/uL (0.1-1.4); ABSOLUTE NEUT (AUTO) 8.3 10^3/uL (1.7-8.2); BASOPHILS % (AUTO) 0.5 % (0-2); EOSINOPHILS % (AUTO) 1.1 % (0-6); HEMOGLOBIN 14.4 g/dL (13.5-17.0); LYMPHOCYTES % (AUTO) 17.7 % (13-45); MEAN CORPUSCULAR HEMOGLOBIN 31.5 pg (27.0-33.4); MEAN CORPUSCULAR HGB CONC 33.5 g/dL (32.0-36.0); MEAN CORPUSCULAR VOLUME 94 fl (80-97); MONOCYTES % (AUTO) 10.3 % (3-13); PLATELET COUNT 344 10^3/uL (150-450); RED BLOOD COUNT 4.57 10^6/uL (4.35-5.55); RED CELL DISTRIBUTION WIDTH 13.6 % (11.5-14.0); SEGMENTED NEUTROPHILS % (AUTO) 70.4 % (42-78); TOTAL CELLS COUNTED % (AUTO) 100 %; WHITE BLOOD COUNT 11.8 10^3/uL (4.0-10.5)
[2018-02-21 03:02] LABS: ALANINE AMINOTRANSFERASE 32 U/L (21-72); ALBUMIN 4.3 g/dL (3.5-5.0); ALKALINE PHOSPHATASE 129 U/L (38-126); APPEARANCE,URINE CLEAR; ASPARTATE AMINO TRANSFERASE 20 U/L (17-59); BILIRUBIN,DIRECT 1.7 mg/dL (0.0-0.4); BILIRUBIN,TOTAL 1.7 mg/dL (0.2-1.3); BILIRUBIN,URINE MODERATE (NEGATIVE); BLOOD UREA NITROGEN 13 mg/dL (7-20); CALCIUM 9.3 mg/dL (8.4-10.2); CARBON DIOXIDE 19 mmol/L (22-30); COLOR,URINE STRAW; GLUCOSE 56 mg/dL (75-110); GLUCOSE, URINE NEGATIVE (NEGATIVE); KETONES,URINE NEGATIVE (NEGATIVE); LEUKOCYTE ESTERASE,URINE NEGATIVE (NEGATIVE); NITRITE,URINE NEGATIVE (NEGATIVE); POTASSIUM 3.6 mmol/L (3.6-5.0); PROTEIN,URINE NEGATIVE (NEGATIVE); TOTAL PROTEIN 7.3 g/dL (6.3-8.2); URINE SPECIFIC GRAVITY 1.012; UROBILINOGEN,URINE NEGATIVE mg/dL (<2.0)
[2018-02-21 03:03] LABS: ACETAMINOPHEN < 10 ug/mL (10-30); ALCOHOL < 10 mg/dL (NONE DETECTED); SALICYLATE < 1.0 mg/dL (2.0-20.0)
[2018-02-21 03:07] LABS: ANION GAP 2 (5-19); CHLORIDE 120 mmol/L (98-107); SODIUM 141.4 mmol/L (137-145)
[2018-02-21 03:18] LABS: URINE AMPHETAMINES SCREEN NEGATIVE; URINE BARBITURATES SCREEN NEGATIVE; URINE BENZODIAZEPINES SCREEN NEGATIVE; URINE COCAINE SCREEN NEGATIVE; URINE MARIJUANA (THC) SCREEN NEGATIVE; URINE METHADONE SCREEN NEGATIVE; URINE PHENCYCLIDINE SCREEN UNCONFIRMED POSITIVE
[2018-02-21] MEDS ORDERED: RINGERS SOLUTION,LACTATED 1,000 ML IV ONE (03:20)
[2018-02-21 04:43] VITALS: BP 144/96
--- NOTE | 2018-02-21 10:47 | EKG REPORT ---
SEVERITY:- ABNORMAL ECG - SINUS RHYTHM LEFT ATRIAL ABNORMALITY RBBB AND LAFB : Confirmed by: Светлана Jessica 21-Feb-2018 10:46:34
== END 2018-02-21 05:00 | disposition home or self-care (01) ==
LOC: ER 02:01
DX: F19.10 Other psychoactive substance abuse, uncomplicated (principal); F12.10 Cannabis abuse, uncomplicated; E11.9 Type 2 diabetes mellitus without complications; D72.829 Elevated white blood cell count, unspecified
CPT/HCPCS: 93005; 99284; 96361; 96365; 36415; 80307 ×4; 85025; 80053; 81001; 93010; J7030; J7120

== ENCOUNTER 2018-03-14 15:35 | Emergency (ER) | payer OTHER ==
[2018-03-14] MEDS ORDERED: LIDOCAINE 1%/EPINEPHRINE INJ 20 ML VIAL INJ ONE (16:01)
[2018-03-14] MEDS ORDERED: NORMAL SALINE 1000 ML 1,000 ML IV ONE (16:04)
--- NOTE | 2018-03-14 16:09 | ER Document Report ---
ED Medical Screen (RME) - General Chief Complaint: Head Injury without LOC Stated Complaint: HEAD LACERATION Time Seen by Provider: 03/14/18 16:00 Notes: Patient presents with forehead laceration. Patient states that he took 60 tablets of DXM around noon time and suspects that this is what caused him to fall hitting his head. Patient thinks that he hit his head on a keyboard. Patient denies any nausea or vomiting. Patient denies any suicidal or homicidal ideation. I have greeted and performed a rapid initial assessment of this patient. A comprehensive ED assessment and evaluation of the patient, analysis of test results and completion of the medical decision making process will be conducted by additional ED providers. TRAVEL OUTSIDE OF THE [place] IN LAST 30 DAYS: No - Related Data Allergies/Adverse Reactions: No Known Allergies Allergy (Verified 02/21/18 02:15) Past Medical History - Past Medical History Cardiac Medical History: Reports: Hx Hypertension Denies: Hx Heart Attack Pulmonary Medical History: Denies: Hx Asthma, Hx Bronchitis, Hx COPD, Hx Pneumonia Neurological Medical History: Denies: Hx Seizures Endocrine Medical History: Reports: Hx Diabetes Mellitus Type 2 Renal/ Medical History: Reports: Hx Kidney Stones. Denies: Hx Peritoneal Dialysis GI Medical History: Reports: Hx Gastroesophageal Reflux Disease, Hx Ulcer Musculoskeltal Medical History: Denies Hx Arthritis, Reports Hx Musculoskeletal Trauma Psychiatric Medical History: Reports: Hx Bipolar Disorder, Hx Depression Traumatic Medical History: Reports: Hx Fractures - Immunizations Immunizations up to date: No Hx Diphtheria, Pertussis, Tetanus Vaccination: No Physical Exam - Vital signs Vitals: Temp Pulse Resp BP Pulse Ox 99 F 116 H 22 H 142/104 H 98 03/14/18 15:40 03/14/18 15:40 03/14/18 15:40 03/14/18 15:40 03/14/18 15:40 - Skin Skin irregularity: Laceration - Left brow area Course - Vital Signs Vital signs: Temp Pulse Resp BP Pulse Ox 99 F 116 H 22 H 142/104 H 98 03/14/18 15:40 03/14/18 15:40 03/14/18 15:40 03/14/18 15:40 03/14/18 15:40
[2018-03-14 17:00] LABS: ABSOLUTE EOSINOPHILS # (AUTO) 0.1 10^3/uL (0.0-0.6); ABSOLUTE LYMPHOCYTES (AUTO) 0.7 10^3/uL (0.5-4.7); ABSOLUTE MONOCYTES (AUTO) 0.9 10^3/uL (0.1-1.4); ABSOLUTE NEUT (AUTO) 9.6 10^3/uL (1.7-8.2); BASOPHILS % (AUTO) 0.2 % (0-2); EOSINOPHILS % (AUTO) 0.9 % (0-6); HEMATOCRIT 43.4 % (37.9-51.0); HEMOGLOBIN 14.8 g/dL (13.5-17.0); MEAN CORPUSCULAR HEMOGLOBIN 31.3 pg (27.0-33.4); MEAN CORPUSCULAR HGB CONC 34.2 g/dL (32.0-36.0); MEAN CORPUSCULAR VOLUME 92 fl (80-97); MONOCYTES % (AUTO) 8.1 % (3-13); PLATELET COUNT 288 10^3/uL (150-450); RED BLOOD COUNT 4.74 10^6/uL (4.35-5.55); RED CELL DISTRIBUTION WIDTH 12.8 % (11.5-14.0); SEGMENTED NEUTROPHILS % (AUTO) 84.8 % (42-78); TOTAL CELLS COUNTED % (AUTO) 100 %; WHITE BLOOD COUNT 11.3 10^3/uL (4.0-10.5)
[2018-03-14 17:04] LABS: APPEARANCE,URINE CLEAR; BILIRUBIN,URINE MODERATE (NEGATIVE); COLOR,URINE STRAW; GLUCOSE, URINE >=500 mg/dL (NEGATIVE); KETONES,URINE NEGATIVE (NEGATIVE); LEUKOCYTE ESTERASE,URINE NEGATIVE (NEGATIVE); NITRITE,URINE NEGATIVE (NEGATIVE); PROTEIN,URINE 30 mg/dL (NEGATIVE); UROBILINOGEN,URINE NEGATIVE mg/dL (<2.0)
[2018-03-14 17:16] LABS: ALANINE AMINOTRANSFERASE 18 U/L (21-72); ALBUMIN 4.3 g/dL (3.5-5.0); ALKALINE PHOSPHATASE 127 U/L (38-126); ASPARTATE AMINO TRANSFERASE 19 U/L (17-59); BLOOD UREA NITROGEN 13 mg/dL (7-20); CALCIUM 8.8 mg/dL (8.4-10.2); GLUCOSE 104 mg/dL (75-110); TOTAL PROTEIN 6.8 g/dL (6.3-8.2)
[2018-03-14 17:18] LABS: URINE AMPHETAMINES SCREEN NEGATIVE; URINE BARBITURATES SCREEN NEGATIVE; URINE BENZODIAZEPINES SCREEN NEGATIVE; URINE COCAINE SCREEN NEGATIVE; URINE MARIJUANA (THC) SCREEN NEGATIVE; URINE METHADONE SCREEN NEGATIVE; URINE PHENCYCLIDINE SCREEN UNCONFIRMED POSITIVE
[2018-03-14 17:22] LABS: ACETAMINOPHEN < 10 ug/mL (10-30); ALCOHOL < 10 mg/dL (NONE DETECTED); SALICYLATE < 1.0 mg/dL (2.0-20.0)
--- NOTE | 2018-03-14 17:32 | RADIOLOGY REPORT (SQ) ---
EXAM DESCRIPTION: CT HEAD WITHOUT COMPLETED DATE/TIME: 03/14/2018 5:17 pm REASON FOR STUDY: injury COMPARISON: 02/13/2018 TECHNIQUE: Axial images acquired through the brain without intravenous contrast. Images reviewed wi th bone, brain and subdural windows. Additional sagittal and coronal reconstructions were generated. Images stored on PACS. All CT scanners at this facility use dose modulation, iterative reconstruction, and/or weight based d osing when appropriate to reduce radiation dose to as low as reasonably achievable (ALARA). [facility]: Dose Right [facility]: CareDose [facility]: Dose Right [facility]: Teradose 4D [facility]: Smart [employer] RADIATION DOSE: CT Rad equipment meets quality standard of care and radiation dose reduction techniq ues were employed. CTDIvol: 53.2 mGy. DLP: 1017 mGy-cm. mGy. LIMITATIONS: None. FINDINGS: VENTRICLES: Normal size and contour. CEREBRUM: No masses. No hemorrhage. No midline shift. No evidence for acute infarction. Normal gra y/white matter differentiation. No areas of low density in the white matter. CEREBELLUM: No masses. No hemorrhage. No alteration of density. No evidence for acute infarction. EXTRAAXIAL SPACES: No fluid collections. No masses. ORBITS AND GLOBE: No intra- or extraconal masses. Normal contour of globe without masses. CALVARIUM: No fracture. PARANASAL SINUSES: No fluid or mucosal thickening. SOFT TISSUES: No mass or hematoma. OTHER: No other significant finding. IMPRESSION: NORMAL BRAIN CT WITHOUT CONTRAST. EVIDENCE OF ACUTE STROKE: NO. COMMENT: Quality ID # [id number]: Final reports with documentation of one or more dose reduction techniques (e.g., Automated exposure control, adjustment of the mA and/or kV according to patient size, use of iterative reconstruction technique) TECHNICAL DOCUMENTATION: JOB ID: [id number] [employer]- All Rights Reserved Reading location - IP/workstation name: [email or web address]
[2018-03-14 17:35] LABS: ANION GAP 0 (5-19); CARBON DIOXIDE 15 mmol/L (22-30); CHLORIDE 130 mmol/L (98-107); POTASSIUM 3.7 mmol/L (3.6-5.0); SODIUM 144.9 mmol/L (137-145)
--- NOTE | 2018-03-14 18:02 | ER Document Report ---
ED Head/Face/Scalp Injury - General Chief Complaint: Head Injury without LOC Stated Complaint: HEAD LACERATION Time Seen by Provider: 03/14/18 16:00 Mode of Arrival: Ambulatory Information source: Patient TRAVEL OUTSIDE OF THE [place] IN LAST 30 DAYS: No - HPI Patient complains to provider of: Injury Injury to: Forehead Location of problem: Head Occurred: Just prior to arrival Where: Home Timing: Still present Context: Fell Loss consciousness: No loss of consciousness Remembers: Injury, Coming to hospital Notes: Patient is a 32-year-old male presenting to the emergency room complaining of head injury, patient admits to taking approximately 60 tablets of dextromethorphan, he does this frequently in an attempt to get high and in fact has been seen in this emergency department multiple times in the past for this, today after taking this he fell asleep while resting on his hands and his head fell forward impacting his keyboard causing a laceration just above his left eyebrow, he denies any loss of consciousness, no vision change, no headache, denies any vomiting or nausea, denies any injury elsewhere, patient denies suicidal ideation - Related Data Allergies/Adverse Reactions: No Known Allergies Allergy (Verified 02/21/18 02:15) Past Medical History - General Information source: Patient - Social History Smoking Status: Never Smoker Chew tobacco use (# tins/day): No Frequency of alcohol use: None Drug Abuse: Other Family History: DM, Hypertension, Other - History of thromboembolic disease Patient has suicidal ideation: No Patient has homicidal ideation: No - Past Medical History Cardiac Medical History: Reports: Hx Hypertension Denies: Hx Heart Attack Pulmonary Medical History: Denies: Hx Asthma, Hx Bronchitis, Hx COPD, Hx Pneumonia Neurological Medical History: Denies: Hx Seizures Endocrine Medical History: Reports: Hx Diabetes Mellitus Type 2 Renal/ Medical History: Reports: Hx Kidney Stones. Denies: Hx Peritoneal Dialysis GI Medical History: Reports: Hx Gastroesophageal Reflux Disease, Hx Ulcer Musculoskeletal Medical History: Denies Hx Arthritis, Reports Hx Musculoskeletal Trauma Psychiatric Medical History: Reports: Hx Bipolar Disorder, Hx Depression Traumatic Medical History: Reports: Hx Fractures - Immunizations Immunizations up to date: No Hx Diphtheria, Pertussis, Tetanus Vaccination: No Review of Systems - Review of Systems Constitutional: No symptoms reported EENT: No symptoms reported Cardiovascular: No symptoms reported Respiratory: No symptoms reported Gastrointestinal: No symptoms reported Genitourinary: No symptoms reported Male Genitourinary: No symptoms reported Musculoskeletal: No symptoms reported Skin: See HPI Hematologic/Lymphatic: No symptoms reported Neurological/Psychological: See HPI -: Yes All other systems reviewed and negative Physical Exam - Vital signs Vitals: Temp Pulse Resp BP Pulse Ox 99 F 116 H 22 H 142/104 H 98 03/14/18 15:40 03/14/18 15:40 03/14/18 15:40 03/14/18 15:40 03/14/18 15:40 Interpretation: Tachycardic - General General appearance: Appears well, Alert - HEENT Head: Normocephalic, Other - 3 cm laceration above the left eyebrow Eyes: Normal Conjunctiva: Normal Extraocular movements intact: Yes Eyelashes: Normal Pupils: PERRL Ears: Normal External canal: Normal Tympanic membrane: Normal Sinus: Normal Nasal: Normal Mouth/Lips: Normal Mucous membranes: Normal Pharynx: Normal Neck: Normal - Respiratory Respiratory status: No respiratory distress Chest status: Nontender Breath sounds: Normal Chest palpation: Normal - Cardiovascular Rhythm: Regular Heart sounds: Normal auscultation Murmur: No - Abdominal Inspection: Normal Distension: No distension Bowel sounds: Normal Tenderness: Nontender Organomegaly: No organomegaly - Back Back: Normal, Nontender - Extremities General upper extremity: Normal inspection, Nontender, Normal color, Normal ROM , Normal temperature General lower extremity: Normal inspection, Nontender, Normal color, Normal ROM , Normal temperature, Normal weight bearing. No: Faisal's sign - Neurological Neuro grossly intact: Yes Cognition: Normal Orientation: AAOx4 [place] Coma Scale Eye Opening: Spontaneous Ernie Coma Scale Verbal: Oriented [place] Coma Scale Motor: Obeys Commands [place] Coma Scale Total: 15 Speech: Normal Motor strength normal: LUE, RUE, LLE, RLE Sensory: Normal - Psychological Associated symptoms: Normal affect, Normal mood - Skin Skin Temperature: Warm Skin Moisture: Dry Skin Color: Normal Course - Re-evaluation Re-evalutation: 03/14/18 20:47 Wound was repaired with sutures, patient given wound care instructions and instructions for follow-up, CT of head unremarkable, patient given IV fluids in the department, heart rate came down nicely, he was discharged with instructions for follow-up, he was provided with a list of resources in the area to help with substance abuse as well and advised to return if any additional concerns, patient acknowledges understanding and agreement with this plan - Vital Signs Vital signs: Temp Pulse Resp BP Pulse Ox 98.2 F 99 18 136/91 H 98 03/14/18 18:19 03/14/18 18:19 03/14/18 18:19 03/14/18 18:19 03/14/18 18:19 - Laboratory Result Diagrams: 03/14/18 16:26 03/14/18 16:26 Laboratory results interpreted by me: 03/14/18 03/14/18 03/14/18 16:26 16:26 16:58 WBC 11.3 H Seg Neutrophils % 84.8 H Lymphocytes % 6.0 L Absolute Neutrophils 9.6 H Chloride 130 H Carbon Dioxide 15 L Anion Gap 0 L Creatinine 1.35 H Direct Bilirubin 1.0 H ALT 18 L Alkaline Phosphatase 127 H Urine Protein 30 H Urine Glucose (UA) >=500 H Urine Bilirubin MODERATE H Salicylates < 1.0 L Acetaminophen < 10 L - Diagnostic Test Radiology reviewed: Image reviewed, Reports reviewed - EKG Interpretation by Me EKG shows normal: Sinus rhythm Rate: Tachycardia Procedures - Laceration/Wound Repair Left Upper Face Time completed: 18:00 Wound length (cm): 3 Wound's Depth, Shape: Irregular Laceration pre-procedure: Sterile PPE donnedArnold applied Anesthetic type: 1% Lidocaine w/epi Volume Anesthetic (mLs): 5 Wound explored: Clean Irrigated w/ Saline (mLs): 400 Wound Repaired With: Sutures Suture Size/Type: 6:0, Nylon Number of Sutures: 7 Layer Closure?: No Post-procedure wound care: Sterile dressing applied Post-procedure NV exam normal: Yes Complications: No Discharge - Discharge Clinical Impression: Substance abuse Head injury Qualifiers: Encounter type: initial encounter Qualified Code(s): S09.90XA - Unspecified injury of head, initial encounter Forehead laceration Qualifiers: Encounter type: initial encounter Qualified Code(s): S01.81XA - Laceration without foreign body of other part of head, initial encounter Condition: Stable Disposition: HOME, SELF-CARE Instructions: Antibiotic Ointment Protection ([facility]), Laceration Care ([facility]), Soap Cleansing ([facility]) Additional Instructions: Follow up with your primary care provider in 2-3 days for wound check. Keep wound clean and covered with antibiotic ointment and a clean dressing. Gently rinse with warm water and soap twice daily. Sutures to be removed in 7-10 days. Return to the emergency room immediately if symptoms worsen or any additional concerns. Stop abusing drugs!
[2018-03-14 18:20] VITALS: BP 136/91
--- NOTE | 2018-03-14 20:52 | EKG REPORT ---
SEVERITY:- ABNORMAL ECG - SINUS RHYTHM FIRST DEGREE AV BLOCK NONSPECIFIC IVCD WITH LAD : Confirmed by: Светлана Jessica 14-Mar-2018 20:51:58
--- NOTE | 2018-03-16 13:13 | EKG REPORT ---
SEVERITY:- ABNORMAL ECG - SINUS RHYTHM PROBABLE LEFT ATRIAL ABNORMALITY NONSPECIFIC IVCD WITH LAD : Confirmed by: David Stern MD 16-Mar-2018 13:12:42
== END 2018-03-14 18:20 | disposition home or self-care (01) ==
LOC: ER 15:35
PROC: 0HQ1XZZ Repair Face Skin, External Approach (ICD-10-PCS; principal; 2018-03-14)
DX: S09.90XA Unspecified injury of head, initial encounter (principal); S01.81XA Laceration without foreign body of other part of head, initial encounter; W18.30XA Fall on same level, unspecified, initial encounter; Y92.009 Unspecified place in unspecified non-institutional (private) residence as the place of occurrence of the external cause; I10 Essential (primary) hypertension; E11.9 Type 2 diabetes mellitus without complications; Z87.442 Personal history of urinary calculi
CPT/HCPCS: 93005; 99284; 96360; 36415; 80307 ×4; 85025; 80053; 81001; 70450; 93010; 12013; J3490; J7030

== ENCOUNTER 2018-03-22 12:38 | Emergency (ER) | payer OTHER ==
[2018-03-22 12:47] VITALS: BP 108/71
--- NOTE | 2018-03-22 13:45 | ER Document Report ---
ED Suture/Wound Recheck - General Chief Complaint: Suture Removal Stated Complaint: SUTURE REMOVAL Time Seen by Provider: 03/22/18 13:31 Mode of Arrival: Ambulatory Information source: Patient Notes: A 2-year-old male presented to ED to have sutures removed from his left forehead. He states he was seen on 03/14 for a head injury. He states he was taken medications to get high fell asleep landed on his every 4 causing a laceration to left eyebrow. Patient denies any pain redness inflammation fever or any complications from this laceration since he had his sutures placed. TRAVEL OUTSIDE OF THE [place] IN LAST 30 DAYS: No - HPI Previous ED treatment: Laceration repair Quality of pain: No pain Severity: None Pain Level: Denies Context: Injury Symptoms since procedure: No complaints Exacerbated by: Denies Relieved by: Denies - Related Data Allergies/Adverse Reactions: No Known Allergies Allergy (Verified 03/22/18 12:39) Past Medical History - General Information source: Patient - Social History Smoking Status: Never Smoker Cigarette use (# per day): No Chew tobacco use (# tins/day): No Smoking Education Provided: No Frequency of alcohol use: None Drug Abuse: Other Lives with: Family Family History: DM, Hypertension, Other - History of thromboembolic disease Patient has suicidal ideation: No Patient has homicidal ideation: No - Past Medical History Cardiac Medical History: Reports: Hx Hypertension Pulmonary Medical History: Reports: None EENT Medical History: Reports: None Neurological Medical History: Reports: None Endocrine Medical History: Reports: Hx Diabetes Mellitus Type 2 Renal/ Medical History: Reports: Hx Kidney Stones Malignancy Medical History: Reports None GI Medical History: Reports: Hx Gastroesophageal Reflux Disease, Hx Ulcer Musculoskeletal Medical History: Reports Hx Musculoskeletal Trauma Skin Medical History: Reports None Psychiatric Medical History: Reports: Hx Bipolar Disorder, Hx Depression Traumatic Medical History: Reports: Hx Fractures Infectious Medical History: Reports: None Surgical Hx: Negative - Immunizations Immunizations up to date: No Hx Diphtheria, Pertussis, Tetanus Vaccination: No Review of Systems - Review of Systems Constitutional: No symptoms reported EENT: No symptoms reported Cardiovascular: No symptoms reported Respiratory: No symptoms reported Gastrointestinal: No symptoms reported Genitourinary: No symptoms reported Male Genitourinary: No symptoms reported Musculoskeletal: No symptoms reported Skin: Other - Sutures intact laceration well approximated no redness signs or symptoms of infection Hematologic/Lymphatic: No symptoms reported Neurological/Psychological: No symptoms reported Physical Exam - Vital signs Vitals: Temp Pulse Resp BP Pulse Ox 97.9 F 65 15 108/71 99 03/22/18 12:42 03/22/18 12:42 03/22/18 12:42 03/22/18 12:42 03/22/18 12:42 Interpretation: Normal - General General appearance: Appears well, Alert - HEENT Head: Normocephalic, Atraumatic Eyes: Normal Pupils: PERRL - Respiratory Respiratory status: No respiratory distress Chest status: Nontender Breath sounds: Normal Chest palpation: Normal - Cardiovascular Rhythm: Regular Heart sounds: Normal auscultation Murmur: No - Abdominal Inspection: Normal Distension: No distension Bowel sounds: Normal Tenderness: Nontender Organomegaly: No organomegaly - Back Back: Normal, Nontender - Extremities General upper extremity: Normal inspection, Nontender, Normal color, Normal ROM , Normal temperature General lower extremity: Normal inspection, Nontender, Normal color, Normal ROM , Normal temperature, Normal weight bearing. No: Faisal's sign - Neurological Neuro grossly intact: Yes Cognition: Normal Orientation: AAOx4 [place] Coma Scale Eye Opening: Spontaneous [place] Coma Scale Verbal: Oriented Ernie Coma Scale Motor: Obeys Commands [place] Coma Scale Total: 15 Speech: Normal Motor strength normal: LUE, RUE, LLE, RLE Sensory: Normal - Psychological Associated symptoms: Normal affect, Normal mood - Skin Skin Temperature: Warm Skin Moisture: Dry Skin Color: Normal Location of irregularity: Face - Sutures intact no redness no drainage no inflammation no discomfort to the site. There were 7 sutures were removed from the area. Course - Vital Signs Vital signs: Temp Pulse Resp BP Pulse Ox 97.9 F 65 15 108/71 99 03/22/18 12:42 03/22/18 12:42 03/22/18 12:42 03/22/18 12:42 03/22/18 12:42 Discharge - Discharge Clinical Impression: Visit for suture removal Condition: Stable Disposition: HOME, SELF-CARE Instructions: Family Physicians / Practices, Suture Removal Additional Instructions: SOAP CLEANSING: Gently wash the wound daily using a mild soap (like Ivory, Phisoderm, Neutrogena). Use warm water, rubbing gently until all debris, ooze, and crusting have been washed from the wound. Allow to dry briefly (about 10 minutes) after cleaning. Repeat this cleansing at least three times a day for the first two days and then once or twice a day. ANTIBIOTIC OINTMENT PROTECTION: Your wounds are such that dressing them is not practical or optional. After cleansing, you should apply a thin coating of antibiotic ointment ( Bacitracin, not Neosporin) to the wounds at least three times daily. This lessens infection risk, and may decrease the amount of scarring. Use a q-tip or dull butter knife, not your finger, to apply this ointment. Any debris or ooze which builds up in the ointment should be gently rubbed off with a sterile gauze pad. Harder crusting may need to be gently scrubbed off with a clean wash cloth with soap and warm water, perhaps applying a warm, wet wash cloth to the wound for ten minutes first. Development of redness, severe itching, or blistering may mean allergy to the ointment. See the doctor. FOLLOW-UP CARE: If you have been referred to a physician for follow-up care, call the physician s office for an appointment as you were instructed or within the next two days. If you experience worsening or a significant change in your symptoms, notify the physician immediately or return to the Emergency Department at any time for re-evaluation.
== END 2018-03-22 14:16 | disposition home or self-care (01) ==
LOC: ER 12:38
DX: S01.112D Laceration without foreign body of left eyelid and periocular area, subsequent encounter (principal); X58.XXXD Exposure to other specified factors, subsequent encounter; E11.9 Type 2 diabetes mellitus without complications; I10 Essential (primary) hypertension

== ENCOUNTER 2018-03-23 10:44 | Emergency (ER) | payer OTHER ==
[2018-03-23] MEDS ORDERED: NORMAL SALINE 1000 ML 1,000 ML IV ONE (10:59)
--- NOTE | 2018-03-23 11:05 | ER Document Report ---
ED General - General Chief Complaint: Shoulder Injury Stated Complaint: FALL HAND INJURY Time Seen by Provider: 03/23/18 10:51 Mode of Arrival: Medic Information source: Patient TRAVEL OUTSIDE OF THE [place] IN LAST 30 DAYS: No - HPI Patient complains to provider of: Fall Onset: Other - This 32-year-old man presents for evaluation of elbow pain and swelling following a fall, he denies any substance use, states that he is not sure why he fell down, rest of history limited secondary to patient's believed intoxication. - Related Data Allergies/Adverse Reactions: No Known Allergies Allergy (Verified 03/23/18 10:52) Past Medical History - General Information source: Patient - Social History Smoking Status: Current Every Day Smoker Family History: DM, Hypertension, Other - History of thromboembolic disease - Past Medical History Cardiac Medical History: Reports: Hx Hypertension Denies: Hx Heart Attack Pulmonary Medical History: Denies: Hx Asthma, Hx Bronchitis, Hx COPD, Hx Pneumonia Neurological Medical History: Denies: Hx Seizures Endocrine Medical History: Reports: Hx Diabetes Mellitus Type 2 Renal/ Medical History: Reports: Hx Kidney Stones. Denies: Hx Peritoneal Dialysis GI Medical History: Reports: Hx Gastroesophageal Reflux Disease, Hx Ulcer Musculoskeletal Medical History: Denies Hx Arthritis, Reports Hx Musculoskeletal Trauma Psychiatric Medical History: Reports: Hx Bipolar Disorder, Hx Depression Traumatic Medical History: Reports: Hx Fractures - Immunizations Immunizations up to date: No Hx Diphtheria, Pertussis, Tetanus Vaccination: No Review of Systems - Review of Systems -: Yes All other systems reviewed and negative Physical Exam - Vital signs Vitals: BP 135/86 H 03/23/18 10:48 - General General appearance: Anxious, Other In distress: Mild - HEENT Head: Other - Abrasion over the left forehead with scab in place, laceration inferior to the right chin, scab in place Eyes: Other - Horizontal nystagmus Conjunctiva: Normal Cornea: Normal Pupils: Dilated Sinus: Normal Nasal: Normal Pharynx: Normal Neck: Normal - Respiratory Respiratory status: No respiratory distress Chest status: Nontender Breath sounds: Normal Chest palpation: Normal - Cardiovascular Rhythm: Regular, Tachycardia Heart sounds: Normal auscultation Murmur: No - Abdominal Inspection: Normal Distension: No distension Tenderness: Nontender - Back Back: Normal - Extremities General upper extremity: Other - The right upper extremity is currently in a sling, the shoulder demonstrates a and ecchymoses overlying the deltoid There is normal range of motion at the shoulder, no tenderness to palpation over the shoulder trapezius scapula, there is market swelling and tenderness to palpation in the right elbow with limited extension, held in flexed and internally rotated position. There is an intact radial pulse, brisk capillary refill in all 5 digits Sensation intact in the ulnar median and radial distribution of the right hand General lower extremity: Normal inspection, Nontender, Normal strength, Normal temperature - Neurological Neuro grossly intact: No Cognition: Confused, Inattentive Orientation: Disoriented to time, Disoriented to events Ernie Coma Scale Verbal: Confused [place] Coma Scale Motor: Obeys Commands Speech: Dysarthria Cranial nerves: Normal Cerebellar coordination: Normal Motor strength normal: RUE, LLE, RLE Additional motor exam normals: Equal bible worker - Psychological Associated symptoms: Other - intoxicated Course - Re-evaluation Re-evalutation: 03/23/18 11:06 This intoxicated 32-year-old presented after an episode of an unwitnessed fall. He has got obvious deformity to the right elbow. Otherwise benign physical examination for trauma. Patient is tachycardic however at this time, he had an initially low blood pressure. Suspect that he did have an unknown ingestion though he does not endorse any ingestion. Patient will undergo overdose screening labs as well as x-rays of the right upper extremity. We will plan for administration of fluids, will plan for reassessment as necessary and EKG. Patient with a possible radio occult radial head fracture will plan for splinting of the right arm sling application. Following a trial of ambulation p.o. patient is clinically sober at this time stating is ready to leave, he has no detectable level of Tylenol his alcohol level was unremarkable as tachycardia has improved following fluids. We will plan for this patient undergo discharge with return precautions is been given follow-up instructions to be seen in orthopedics clinic this week for his suspected broken arm. 03/25/18 07:41 - Vital Signs Vital signs: Temp Pulse Resp BP Pulse Ox 99.1 F 101 H 16 138/91 H 99 03/23/18 13:12 03/23/18 13:12 03/23/18 13:12 03/23/18 13:12 03/23/18 13:12 - Laboratory Result Diagrams: 03/23/18 10:48 03/23/18 10:48 Laboratory results interpreted by me: 03/23/18 03/23/18 03/23/18 10:48 10:48 11:08 RBC 3.98 L Hgb 12.4 L Hct 36.8 L Chloride 127 H Carbon Dioxide 20 L Anion Gap -3 L Glucose 232 H Direct Bilirubin 1.3 H Total Protein 5.9 L Albumin 3.4 L Urine Glucose (UA) >=500 H Urine Bilirubin SMALL H Salicylates < 1.0 L Acetaminophen < 10 L Discharge - Discharge Clinical Impression: Radial head fracture Qualifiers: Encounter type: initial encounter Fracture type: closed Fracture alignment: nondisplaced Laterality: right Qualified Code(s): S52.124A - Nondisplaced fracture of head of right radius, initial encounter for closed fracture Overdose Qualifiers: Encounter type: initial encounter Injury intent: undetermined intent Qualified Code(s): T50.904A - Poisoning by unspecified drugs, medicaments and biological substances, undetermined, initial encounter Condition: Good Disposition: HOME, SELF-CARE Instructions: Elbow Effusion ([facility]), Sling as Treatment ([facility]) Additional Instructions: Your seen today in the emergency department for your elbow injury and fall. You should see the orthopedic surgeon this week. Return for worsening pain swelling or abnormality in the arm. Stop taking drugs. Forms: Elevated Blood Pressure, Smoking Cessation Education Referrals: TERESA PRIETO DO [ACTIVE STAFF] - Follow up as needed
[2018-03-23 11:10] LABS: ABSOLUTE EOSINOPHILS # (AUTO) 0.3 10^3/uL (0.0-0.6); ABSOLUTE LYMPHOCYTES (AUTO) 1.3 10^3/uL (0.5-4.7); ABSOLUTE NEUT (AUTO) 6.9 10^3/uL (1.7-8.2); BASOPHILS % (AUTO) 0.3 % (0-2); EOSINOPHILS % (AUTO) 2.8 % (0-6); HEMATOCRIT 36.8 % (37.9-51.0); HEMOGLOBIN 12.4 g/dL (13.5-17.0); LYMPHOCYTES % (AUTO) 13.6 % (13-45); MEAN CORPUSCULAR HEMOGLOBIN 31.3 pg (27.0-33.4); MEAN CORPUSCULAR HGB CONC 33.8 g/dL (32.0-36.0); MEAN CORPUSCULAR VOLUME 93 fl (80-97); MONOCYTES % (AUTO) 10.3 % (3-13); PLATELET COUNT 242 10^3/uL (150-450); RED BLOOD COUNT 3.98 10^6/uL (4.35-5.55); RED CELL DISTRIBUTION WIDTH 12.9 % (11.5-14.0); TOTAL CELLS COUNTED % (AUTO) 100 %; WHITE BLOOD COUNT 9.5 10^3/uL (4.0-10.5)
[2018-03-23 11:26] LABS: ALANINE AMINOTRANSFERASE 23 U/L (21-72); ALBUMIN 3.4 g/dL (3.5-5.0); ALKALINE PHOSPHATASE 116 U/L (38-126); ASPARTATE AMINO TRANSFERASE 23 U/L (17-59); BILIRUBIN,DIRECT 1.3 mg/dL (0.0-0.4); BILIRUBIN,TOTAL 1.3 mg/dL (0.2-1.3); BLOOD UREA NITROGEN 12 mg/dL (7-20); CALCIUM 9.1 mg/dL (8.4-10.2); GLUCOSE 232 mg/dL (75-110); SODIUM 144.1 mmol/L (137-145); TOTAL PROTEIN 5.9 g/dL (6.3-8.2)
[2018-03-23 11:29] LABS: APPEARANCE,URINE CLEAR; BILIRUBIN,URINE SMALL (NEGATIVE); COLOR,URINE STRAW; GLUCOSE, URINE >=500 mg/dL (NEGATIVE); KETONES,URINE NEGATIVE (NEGATIVE); LEUKOCYTE ESTERASE,URINE NEGATIVE (NEGATIVE); NITRITE,URINE NEGATIVE (NEGATIVE); PROTEIN,URINE NEGATIVE (NEGATIVE); URINE SPECIFIC GRAVITY 1.015; UROBILINOGEN,URINE NEGATIVE mg/dL (<2.0)
[2018-03-23 11:34] LABS: ACETAMINOPHEN < 10 ug/mL (10-30); ALCOHOL < 10 mg/dL (NONE DETECTED); SALICYLATE < 1.0 mg/dL (2.0-20.0)
[2018-03-23 11:43] LABS: URINE AMPHETAMINES SCREEN NEGATIVE; URINE BARBITURATES SCREEN NEGATIVE; URINE BENZODIAZEPINES SCREEN NEGATIVE; URINE COCAINE SCREEN NEGATIVE; URINE MARIJUANA (THC) SCREEN NEGATIVE; URINE METHADONE SCREEN NEGATIVE; URINE PHENCYCLIDINE SCREEN UNCONFIRMED POSITIVE
[2018-03-23 11:44] LABS: CARBON DIOXIDE 20 mmol/L (22-30); CHLORIDE 127 mmol/L (98-107); POTASSIUM 4.2 mmol/L (3.6-5.0)
[2018-03-23 11:49] LABS: ANION GAP -3 (5-19)
--- NOTE | 2018-03-23 12:02 | RADIOLOGY REPORT (SQ) ---
EXAM DESCRIPTION: ELBOW RIGHT OVER 2 VIEWS; HUMERUS RIGHT; WRIST RIGHT 2 VIEWS COMPLETED DATE/TIME: 03/23/2018 11:46 am REASON FOR STUDY: fall and trauma of the right arm COMPARISON: None. FINDINGS: Two views right humerus: Normal. Elbow intact. No rib per lung lesions identified. Four views right elbow: THERE IS A JOINT EFFUSION PRESENT. No displaced fracture (would usually be radial head in a patient of this age). No subluxation or dislocation or foreign body. Two views right wrist: Normal. No fracture or carpal malalignment. TECHNICAL DOCUMENTATION: JOB ID: [id number] Reading location - IP/workstation name: [email or web address]
--- NOTE | 2018-03-23 12:02 | RADIOLOGY REPORT (SQ) ---
EXAM DESCRIPTION: ELBOW RIGHT OVER 2 VIEWS; HUMERUS RIGHT; WRIST RIGHT 2 VIEWS COMPLETED DATE/TIME: 03/23/2018 11:46 am REASON FOR STUDY: fall and trauma of the right arm COMPARISON: None. FINDINGS: Two views right humerus: Normal. Elbow intact. No rib per lung lesions identified. Four views right elbow: THERE IS A JOINT EFFUSION PRESENT. No displaced fracture (would usually be radial head in a patient of this age). No subluxation or dislocation or foreign body. Two views right wrist: Normal. No fracture or carpal malalignment. TECHNICAL DOCUMENTATION: JOB ID: [id number] Reading location - IP/workstation name: [email or web address]
--- NOTE | 2018-03-23 12:02 | RADIOLOGY REPORT (SQ) ---
EXAM DESCRIPTION: ELBOW RIGHT OVER 2 VIEWS; HUMERUS RIGHT; WRIST RIGHT 2 VIEWS COMPLETED DATE/TIME: 03/23/2018 11:46 am REASON FOR STUDY: fall and trauma of the right arm COMPARISON: None. FINDINGS: Two views right humerus: Normal. Elbow intact. No rib per lung lesions identified. Four views right elbow: THERE IS A JOINT EFFUSION PRESENT. No displaced fracture (would usually be radial head in a patient of this age). No subluxation or dislocation or foreign body. Two views right wrist: Normal. No fracture or carpal malalignment. TECHNICAL DOCUMENTATION: JOB ID: [id number] Reading location - IP/workstation name: [email or web address]
[2018-03-23 13:17] VITALS: BP 138/91
--- NOTE | 2018-03-23 17:18 | EKG REPORT ---
SEVERITY:- ABNORMAL ECG - SINUS TACHYCARDIA LAD, CONSIDER LEFT ANTERIOR FASCICULAR BLOCK : Confirmed by: David Stern MD 23-Mar-2018 17:18:09
== END 2018-03-23 13:17 | disposition home or self-care (01) ==
LOC: ER 10:44
DX: S52.124A Nondisplaced fracture of head of right radius, initial encounter for closed fracture (principal); T50.904A Poisoning by unspecified drugs, medicaments and biological substances, undetermined, initial encounter; S00.81XA Abrasion of other part of head, initial encounter; S01.81XA Laceration without foreign body of other part of head, initial encounter; M25.521 Pain in right elbow; M79.89 Other specified soft tissue disorders; R00.0 Tachycardia, unspecified; W19.XXXA Unspecified fall, initial encounter; F17.200 Nicotine dependence, unspecified, uncomplicated; I10 Essential (primary) hypertension; E11.9 Type 2 diabetes mellitus without complications
CPT/HCPCS: 93005; 99284; 36415; 80307 ×4; 85025; 80053; 81001; 73080; 73060; 73100; 93010; J7030

== ENCOUNTER 2018-05-07 16:20 | Emergency (ER) | payer OTHER ==
[2018-05-07] MEDS ORDERED: LORAZEPAM INJ 2 MG/1 ML VIAL IV ONE (17:07)
--- NOTE | 2018-05-07 17:23 | ER Document Report ---
ED General - General Chief Complaint: Overdose Stated Complaint: POSSIBLE OVERDOSE Time Seen by Provider: 05/07/18 17:06 Mode of Arrival: Medic Information source: Patient, Emergency Med Personnel, [facility] Records Notes: 32-year-old male with hypertension, type 2 diabetes, dextromethorphan abuse presents via EMS from home after his grandparents found him acting abnormally. Patient is well-known to the department and has been seen many times for this. Patient currently has no physical complaints. He states that he took approximately 60 guaifenesin tabs earlier today. He states that it was not with the intention to kill himself but to get high. Patient is noncompliant with his hypertension and diabetic medications. He denies headache, visual changes, nausea, vomiting, chest pain, abdominal pain. He denies suicidal, homicidal ideation. He denies visual and auditory hallucinations. TRAVEL OUTSIDE OF THE [place] IN LAST 30 DAYS: No - HPI Onset: Just prior to arrival Onset/Duration: Sudden Quality of pain: No pain Severity: None Associated symptoms: denies: Chest pain, Nonproductive cough, Fever, Headache, Nausea, Vomiting, Shortness of breath Exacerbated by: Denies Relieved by: Denies Similar symptoms previously: Yes Recently seen / treated by doctor: Yes - Related Data Allergies/Adverse Reactions: No Known Allergies Allergy (Verified 03/23/18 10:52) Past Medical History - General Information source: Patient, Emergency Med Personnel, [facility] Records - Social History Smoking Status: Current Every Day Smoker Cigarette use (# per day): Yes - 10 Smoking Education Provided: Yes - Smoking cessation counseling was provided for 4 minutes at the bedside Frequency of alcohol use: None Drug Abuse: Prescription drugs Lives with: Family Family History: DM, Hypertension, Other - History of thromboembolic disease - Past Medical History Cardiac Medical History: Reports: Hx Hypertension Denies: Hx Heart Attack Pulmonary Medical History: Denies: Hx Asthma, Hx Bronchitis, Hx COPD, Hx Pneumonia Neurological Medical History: Denies: Hx Seizures Endocrine Medical History: Reports: Hx Diabetes Mellitus Type 2 Renal/ Medical History: Reports: Hx Kidney Stones. Denies: Hx Peritoneal Dialysis GI Medical History: Reports: Hx Gastroesophageal Reflux Disease, Hx Ulcer Musculoskeletal Medical History: Denies Hx Arthritis, Reports Hx Musculoskeletal Trauma Psychiatric Medical History: Reports: Hx Bipolar Disorder, Hx Depression Traumatic Medical History: Reports: Hx Fractures - Immunizations Immunizations up to date: No Hx Diphtheria, Pertussis, Tetanus Vaccination: No Review of Systems - Review of Systems Notes: REVIEW OF SYSTEMS: CONSTITUTIONAL : Denies fever, chills, or sweats. Denies recent illness. Denies weight loss, recent hospitalizations. EENT: Denies visual changes, eye pain. Denies sore throat, oral lesions, difficulty swallowing. CARDIOVASCULAR: Denies chest pain. Denies palpitations. Denies lower extremity edema. RESPIRATORY: Denies cough. Denies shortness of breath, wheezing. GASTROINTESTINAL: Denies abdominal pain or distention. Denies nausea, vomiting , or diarrhea. Denies blood in vomitus, stools, or per rectum. Denies black, tarry stools. Denies constipation. GENITOURINARY: Denies difficulty urinating, painful urination, frequency, blood in urine, testicular pain or penile discharge. MUSCULOSKELETAL: Denies back or neck pain or stiffness. Denies joint pain or swelling. SKIN: Denies rash, lesions or sores. HEMATOLOGIC : Denies easy bruising or bleeding. LYMPHATIC: Denies swollen glands. NEUROLOGICAL: Denies confusion or altered mental status. Denies loss of consciousness. Denies dizziness or lightheadedness. Denies headache. Denies weakness or paralysis. Denies problems difficulty with ambulation, slurred speech. Denies sensory loss, numbness, or tingling. Denies seizures. PSYCHIATRIC: Denies anxiety or stress. Denies depression, suicidal ideation, or Physical Exam - Vital signs Vitals: Temp 98.1 F 05/07/18 16:20 - Notes Notes: PHYSICAL EXAMINATION: GENERAL: Well-appearing, well-nourished and in no acute distress. HEAD: Atraumatic, normocephalic. EYES: Pupils equal round and reactive to light, extraocular movements intact, sclera anicteric, conjunctiva are normal. ENT: Nares patent, oropharynx clear without exudates. Moist mucous membranes. NECK: Normal range of motion, supple without lymphadenopathy LUNGS: Breath sounds clear to auscultation bilaterally and equal. No wheezes rales or rhonchi. HEART: Tachycardic, regular rhythm without murmurs ABDOMEN: Soft, nontender, nondistended abdomen. No guarding, no rebound. No masses appreciated. Musculoskeletal: Normal range of motion, no pitting or edema. No cyanosis. NEUROLOGICAL: Cranial nerves grossly intact. Normal speech, normal gait. Normal sensory, motor exams PSYCH: Normal mood, normal affect. SKIN: Warm, Dry, normal turgor, no rashes or lesions noted. Course - Re-evaluation Re-evalutation: Laboratory 05/07/18 05/07/18 05/07/18 16:31 16:31 17:22 WBC 10.3 RBC 4.81 Hgb 14.7 Hct 43.7 MCV 91 MCH 30.5 MCHC 33.6 RDW 14.1 H Plt Count 280 Seg Neutrophils % 76.0 Lymphocytes % 13.6 Monocytes % 8.9 Eosinophils % 1.3 Basophils % 0.2 Absolute Neutrophils 7.8 Absolute Lymphocytes 1.4 Absolute Monocytes 0.9 Absolute Eosinophils 0.1 Absolute Basophils 0.0 Sodium 142.9 Potassium 3.6 Chloride 128 H Carbon Dioxide 17 L Anion Gap -2 L BUN 15 Creatinine 1.22 Est GFR ( Amer) > 60 Est GFR (Non-Af Amer) > 60 Glucose 439 H* POC Glucose Calcium 8.5 Total Bilirubin 1.7 H Direct Bilirubin 1.7 H Neonat Total Bilirubin Not Reportable Neonat Direct Bilirubin Not Reportable Neonat Indirect Bili Not Reportable AST 14 L ALT 20 L Alkaline Phosphatase 165 H Total Protein 6.4 Albumin 3.9 Urine Color COLORLESS Urine Appearance CLEAR Urine pH 5.0 Ur Specific [place] 1.025 Urine Protein NEGATIVE Urine Glucose (UA) >=500 H Urine Ketones NEGATIVE Urine Blood SMALL H Urine Nitrite NEGATIVE Urine Bilirubin SMALL H Urine Urobilinogen NEGATIVE Ur Leukocyte Esterase NEGATIVE Urine WBC (Auto) 0 Urine RBC (Auto) 2 Urine Ascorbic Acid NEGATIVE Salicylates < 1.0 L Urine Opiates Screen Urine Methadone Screen Acetaminophen < 10 L Ur Barbiturates Screen Ur Phencyclidine Scrn Ur Amphetamines Screen U Benzodiazepines Scrn Urine Cocaine Screen U Marijuana (THC) Screen Serum Alcohol < 10 05/07/18 05/07/18 17:22 20:17 WBC RBC Hgb Hct MCV MCH MCHC RDW Plt Count Seg Neutrophils % Lymphocytes % Monocytes % Eosinophils % Basophils % Absolute Neutrophils Absolute Lymphocytes Absolute Monocytes Absolute Eosinophils Absolute Basophils Sodium Potassium Chloride Carbon Dioxide Anion Gap BUN Creatinine Est GFR ( Amer) Est GFR (Non-Af Amer) Glucose POC Glucose 345 H Calcium Total Bilirubin Direct Bilirubin Neonat Total Bilirubin Neonat Direct Bilirubin Neonat Indirect Bili AST ALT Alkaline Phosphatase Total Protein Albumin Urine Color Urine Appearance Urine pH Ur Specific [place] Urine Protein Urine Glucose (UA) Urine Ketones Urine Blood Urine Nitrite Urine Bilirubin Urine Urobilinogen Ur Leukocyte Esterase Urine WBC (Auto) Urine RBC (Auto) Urine Ascorbic Acid Salicylates Urine Opiates Screen UNCONFIRMED POSITIVE Urine Methadone Screen NEGATIVE Acetaminophen Ur Barbiturates Screen NEGATIVE Ur Phencyclidine Scrn UNCONFIRMED POSITIVE Ur Amphetamines Screen NEGATIVE U Benzodiazepines Scrn NEGATIVE Urine Cocaine Screen NEGATIVE U Marijuana (THC) Screen NEGATIVE Serum Alcohol 32-year-old male with hypertension, diabetes, known drug abuse who is noncompliant with any of his medication presents via EMS from home after consuming 60 tabs of guaifenesin just prior to arrival. Patient states that he was not trying to harm himself but only trying to get high. Patient has been seen in this emergency department multiple times for similar symptoms. Upon arrival he is tachycardic, afebrile and mildly hypertensive. Patient denies any physical complaints at this time. Urine drug screen was positive for opiates, PCP. Patient was provided IV fluids which did resolve his tachycardia. He also did receive 1 mg of Ativan. CBC is without leukocytosis or anemia. CMP does show hyperglycemia without evidence of DKA. Also shows hyperchloremia. Patient does have mild elevation of alk phos. 05/07/18 17:22 Poison control was contacted regarding this patient they are very familiar with him. They recommend supportive care including IV fluids, benzodiazepine as needed and routine blood work and 6 hours of observation.. Patient was evaluated in the emergency department and observed for over 6 hours with out incident. He has remained stable throughout his ED course. He has been cooperative and without complaints. Patient will be discharged to [facility] when medically cleared which he is. Patient was evaluated and treated as appropriate for the patient's presenting symptoms and complaint, with consideration of any critical or life threatening conditions that may be associated with their obtained history and exam as noted above. All results were discussed with patient. Patient provided the opportunity to ask questions, and express concerns. Patient was educated on treatments based on their presumed diagnosis as noted above. At this time we will discharge the patient with return precautions and follow-up recommendations. Verbal discharge instructions given a the bedside. Medication warnings reviewed. Patient is in agreement with this plan and has verbalized understanding of return precautions. After careful consideration I feel that that patient can be safely discharged from the emergency department, they were advised to followup with a primary care physician in 2-3 days. Dictation on this chart was performed using voice recognition software and may result in unintended grammatical, spelling, syntax or errors. 05/08/18 00:25 05/08/18 03:02 - Vital Signs Vital signs: Temp Pulse Resp BP Pulse Ox 98.2 F 20 138/86 H 100 05/08/18 00:01 05/08/18 00:01 05/08/18 00:01 05/08/18 00:01 - Laboratory Result Diagrams: 05/07/18 16:31 05/07/18 23:07 Laboratory results interpreted by me: 05/07/18 05/07/18 05/07/18 16:31 16:31 17:22 RDW 14.1 H Potassium Chloride 128 H Carbon Dioxide 17 L Anion Gap -2 L Glucose 439 H* POC Glucose Total Bilirubin 1.7 H Direct Bilirubin 1.7 H AST 14 L ALT 20 L Alkaline Phosphatase 165 H Urine Glucose (UA) >=500 H Urine Blood SMALL H Urine Bilirubin SMALL H Salicylates < 1.0 L Acetaminophen < 10 L 05/07/18 05/07/18 20:17 23:07 RDW Potassium 3.5 L Chloride 132 H Carbon Dioxide 18 L Anion Gap Glucose 211 H POC Glucose 345 H Total Bilirubin Direct Bilirubin AST ALT Alkaline Phosphatase Urine Glucose (UA) Urine Blood Urine Bilirubin Salicylates Acetaminophen Discharge - Discharge Clinical Impression: Drug abuse, Noncompliance with medication regimen, Hyperchloremia, Polysubstance abuse, Elevated alkaline phosphatase level, PCP (phencyclidine) abuse, Opiate abuse, continuous Type 2 diabetes mellitus Qualifiers: Diabetes mellitus longterm insulin use: without manager intermediate use Diabetes mellitus complication status: without complication Qualified Code(s): E11.9 - Type 2 diabetes mellitus without complications Hypertension Qualifiers: Hypertension type: unspecified Qualified Code(s): I10 - Essential (primary) hypertension Hyperglycemia due to type 2 diabetes mellitus Qualifiers: Diabetes mellitus manager intermediate insulin use: without longterm use Qualified Code(s ): E11.65 - Type 2 diabetes mellitus with hyperglycemia Condition: Good Disposition: OTHER Instructions: Diabetes ([facility]), Drug Effects ([facility]), High Blood Pressure ([facility]) Forms: Elevated Blood Pressure
[2018-05-07 17:25] LABS: ABSOLUTE EOSINOPHILS # (AUTO) 0.1 10^3/uL (0.0-0.6); ABSOLUTE LYMPHOCYTES (AUTO) 1.4 10^3/uL (0.5-4.7); ABSOLUTE MONOCYTES (AUTO) 0.9 10^3/uL (0.1-1.4); ABSOLUTE NEUT (AUTO) 7.8 10^3/uL (1.7-8.2); BASOPHILS % (AUTO) 0.2 % (0-2); EOSINOPHILS % (AUTO) 1.3 % (0-6); HEMATOCRIT 43.7 % (37.9-51.0); HEMOGLOBIN 14.7 g/dL (13.5-17.0); LYMPHOCYTES % (AUTO) 13.6 % (13-45); MEAN CORPUSCULAR HEMOGLOBIN 30.5 pg (27.0-33.4); MEAN CORPUSCULAR HGB CONC 33.6 g/dL (32.0-36.0); MEAN CORPUSCULAR VOLUME 91 fl (80-97); MONOCYTES % (AUTO) 8.9 % (3-13); PLATELET COUNT 280 10^3/uL (150-450); RED BLOOD COUNT 4.81 10^6/uL (4.35-5.55); RED CELL DISTRIBUTION WIDTH 14.1 % (11.5-14.0); TOTAL CELLS COUNTED % (AUTO) 100 %; WHITE BLOOD COUNT 10.3 10^3/uL (4.0-10.5)
[2018-05-07 17:31] LABS: ALANINE AMINOTRANSFERASE 20 U/L (21-72); ALBUMIN 3.9 g/dL (3.5-5.0); ALKALINE PHOSPHATASE 165 U/L (38-126); ASPARTATE AMINO TRANSFERASE 14 U/L (17-59); BILIRUBIN,DIRECT 1.7 mg/dL (0.0-0.4); BILIRUBIN,TOTAL 1.7 mg/dL (0.2-1.3); BLOOD UREA NITROGEN 15 mg/dL (7-20); CALCIUM 8.5 mg/dL (8.4-10.2); POTASSIUM 3.6 mmol/L (3.6-5.0); TOTAL PROTEIN 6.4 g/dL (6.3-8.2)
[2018-05-07] MEDS: RINGERS SOLUTION,LACTATED 1,000 ML IV PRN ×2 (17:39→18:10)
[2018-05-07 17:40] LABS: CARBON DIOXIDE 17 mmol/L (22-30); CHLORIDE 128 mmol/L (98-107); SODIUM 142.9 mmol/L (137-145)
[2018-05-07 17:45] LABS: APPEARANCE,URINE CLEAR; BILIRUBIN,URINE SMALL (NEGATIVE); COLOR,URINE COLORLESS; GLUCOSE, URINE >=500 mg/dL (NEGATIVE); KETONES,URINE NEGATIVE (NEGATIVE); LEUKOCYTE ESTERASE,URINE NEGATIVE (NEGATIVE); NITRITE,URINE NEGATIVE (NEGATIVE); PROTEIN,URINE NEGATIVE (NEGATIVE); URINE SPECIFIC GRAVITY 1.025; UROBILINOGEN,URINE NEGATIVE mg/dL (<2.0)
[2018-05-07 17:52] LABS: URINE AMPHETAMINES SCREEN NEGATIVE; URINE BARBITURATES SCREEN NEGATIVE; URINE BENZODIAZEPINES SCREEN NEGATIVE; URINE COCAINE SCREEN NEGATIVE; URINE MARIJUANA (THC) SCREEN NEGATIVE; URINE METHADONE SCREEN NEGATIVE; URINE PHENCYCLIDINE SCREEN UNCONFIRMED POSITIVE
[2018-05-07 17:56] LABS: ACETAMINOPHEN < 10 ug/mL (10-30); ALCOHOL < 10 mg/dL (NONE DETECTED); ANION GAP -2 (5-19); SALICYLATE < 1.0 mg/dL (2.0-20.0)
[2018-05-07 17:58] LABS: GLUCOSE 439 mg/dL (75-110)
--- NOTE | 2018-05-07 18:30 | EKG REPORT ---
SEVERITY:- ABNORMAL ECG - SINUS TACHYCARDIA LEFT ATRIAL ABNORMALITY RBBB AND LAFB : Confirmed by: David Stern MD 07-May-2018 18:29:35
[2018-05-08 00:11] VITALS: BP 138/86
[2018-05-08 00:46] LABS: BLOOD UREA NITROGEN 12 mg/dL (7-20); POTASSIUM 3.5 mmol/L (3.6-5.0)
[2018-05-08 01:05] LABS: CARBON DIOXIDE 18 mmol/L (22-30); CHLORIDE 132 mmol/L (98-107); GLUCOSE 211 mg/dL (75-110)
== END 2018-05-08 00:26 | disposition other institution (70) ==
LOC: ER 16:20
DX: E11.65 Type 2 diabetes mellitus with hyperglycemia (principal); I10 Essential (primary) hypertension; F11.10 Opioid abuse, uncomplicated; F19.10 Other psychoactive substance abuse, uncomplicated; F17.210 Nicotine dependence, cigarettes, uncomplicated; E78.00 Pure hypercholesterolemia, unspecified; Z91.14 Patient's other noncompliance with medication regimen; Z87.442 Personal history of urinary calculi
CPT/HCPCS: 93005; 99406; 99284; 96361; 96374; 36415; 82962; 80307 ×4; 85025; 80048; 80053; 81001; 93010; J2060; J7120

== ENCOUNTER 2018-07-22 09:57 | Emergency (ER) | payer SELFPAY ==
--- NOTE | 2018-07-22 10:32 | ER Document Report ---
ED Medical Screen (RME) - General Chief Complaint: Other Stated Complaint: HEAD ISSUE Time Seen by Provider: 07/22/18 10:22 Mode of Arrival: Ambulatory Information source: Patient Notes: 32-year-old male with dextromethorphan abuse, diabetes, well-known to this facility for frequent dextromethorphan of overdoses presents with complaint of "I think my dog gave me tapeworm after licking me in the face". Patient states that he has a sensation of something moving across his forehead and onto his left side. I have greeted and performed a rapid initial assessment of this patient. A comprehensive ED assessment and evaluation of the patient, analysis of test results and completion of medical decision making process we will be contacted by additional ED providers. PHYSICAL EXAMINATION: Vital signs reviewed-tachycardic, hypertensive GENERAL: Well-appearing, well-nourished and in no acute distress. LUNGS: No respiratory distress Musculoskeletal: Normal range of motion NEUROLOGICAL: Normal speech, normal gait. PSYCH: Normal mood, normal affect. SKIN: Warm, Dry, normal turgor, no rashes or lesions noted. TRAVEL OUTSIDE OF THE [place] IN LAST 30 DAYS: No - HPI Onset: This morning Onset/Duration: Sudden Quality of pain: Achy Associated Symptoms: Headache Exacerbated by: Denies Relieved by: Denies Similar symptoms previously: Yes Recently seen / treated by doctor: Yes - Related Data Smoking: Cigarettes Frequency of alcohol use: None Drug Abuse: Prescription drugs Allergies/Adverse Reactions: No Known Allergies Allergy (Verified 07/22/18 10:01) Past Medical History - Past Medical History Cardiac Medical History: Reports: Hx Hypertension Denies: Hx Heart Attack Pulmonary Medical History: Denies: Hx Asthma, Hx Bronchitis, Hx COPD, Hx Pneumonia Neurological Medical History: Denies: Hx Seizures Endocrine Medical History: Reports: Hx Diabetes Mellitus Type 2 Renal/ Medical History: Reports: Hx Kidney Stones. Denies: Hx Peritoneal Dialysis GI Medical History: Reports: Hx Gastroesophageal Reflux Disease, Hx Ulcer Musculoskeltal Medical History: Denies Hx Arthritis, Reports Hx Musculoskeletal Trauma Psychiatric Medical History: Reports: Hx Bipolar Disorder, Hx Depression Traumatic Medical History: Reports: Hx Fractures - Immunizations Immunizations up to date: No Hx Diphtheria, Pertussis, Tetanus Vaccination: No Physical Exam - Vital signs Vitals: Temp Pulse Resp BP Pulse Ox 98.5 F 111 H 18 141/105 H 97 07/22/18 10:08 07/22/18 10:08 07/22/18 10:08 07/22/18 10:08 07/22/18 10:08 Course - Vital Signs Vital signs: Temp Pulse Resp BP Pulse Ox 98.5 F 111 H 18 141/105 H 97 07/22/18 10:08 07/22/18 10:08 07/22/18 10:08 07/22/18 10:08 07/22/18 10:08
[2018-07-22 11:11] LABS: ABSOLUTE LYMPHOCYTES (AUTO) 1.1 10^3/uL (0.5-4.7); ABSOLUTE MONOCYTES (AUTO) 0.6 10^3/uL (0.1-1.4); ABSOLUTE NEUT (AUTO) 7.5 10^3/uL (1.7-8.2); BASOPHILS % (AUTO) 0.1 % (0-2); EOSINOPHILS % (AUTO) 0.3 % (0-6); HEMATOCRIT 44.8 % (37.9-51.0); HEMOGLOBIN 15.2 g/dL (13.5-17.0); LYMPHOCYTES % (AUTO) 12.2 % (13-45); MEAN CORPUSCULAR HEMOGLOBIN 30.6 pg (27.0-33.4); MEAN CORPUSCULAR HGB CONC 33.9 g/dL (32.0-36.0); MEAN CORPUSCULAR VOLUME 90 fl (80-97); MONOCYTES % (AUTO) 6.9 % (3-13); PLATELET COUNT 310 10^3/uL (150-450); RED BLOOD COUNT 4.96 10^6/uL (4.35-5.55); RED CELL DISTRIBUTION WIDTH 13.7 % (11.5-14.0); SEGMENTED NEUTROPHILS % (AUTO) 80.5 % (42-78); TOTAL CELLS COUNTED % (AUTO) 100 %; WHITE BLOOD COUNT 9.3 10^3/uL (4.0-10.5)
[2018-07-22 11:16] LABS: APPEARANCE,URINE CLEAR; BILIRUBIN,URINE MODERATE (NEGATIVE); COLOR,URINE YELLOW; GLUCOSE, URINE NEGATIVE (NEGATIVE); KETONES,URINE NEGATIVE (NEGATIVE); LEUKOCYTE ESTERASE,URINE NEGATIVE (NEGATIVE); NITRITE,URINE NEGATIVE (NEGATIVE); PROTEIN,URINE 100 mg/dL (NEGATIVE); URINE SPECIFIC GRAVITY 1.023; UROBILINOGEN,URINE NEGATIVE mg/dL (<2.0)
[2018-07-22 11:30] LABS: URINE AMPHETAMINES SCREEN NEGATIVE; URINE BARBITURATES SCREEN NEGATIVE; URINE BENZODIAZEPINES SCREEN NEGATIVE; URINE COCAINE SCREEN NEGATIVE; URINE MARIJUANA (THC) SCREEN NEGATIVE; URINE METHADONE SCREEN NEGATIVE; URINE PHENCYCLIDINE SCREEN UNCONFIRMED POSITIVE
[2018-07-22 11:39] LABS: ALANINE AMINOTRANSFERASE 11 U/L (21-72); ALBUMIN 4.9 g/dL (3.5-5.0); ALKALINE PHOSPHATASE 91 U/L (38-126); ASPARTATE AMINO TRANSFERASE 18 U/L (17-59); BILIRUBIN,DIRECT 1.7 mg/dL (0.0-0.4); BILIRUBIN,TOTAL 1.7 mg/dL (0.2-1.3); BLOOD UREA NITROGEN 15 mg/dL (7-20); CARBON DIOXIDE 16 mmol/L (22-30); CHLORIDE 129 mmol/L (98-107); GLUCOSE 115 mg/dL (75-110); TOTAL PROTEIN 7.5 g/dL (6.3-8.2)
[2018-07-22 11:40] LABS: ACETAMINOPHEN < 10 ug/mL (10-30); ALCOHOL < 10 mg/dL (NONE DETECTED); SALICYLATE < 1.0 mg/dL (2.0-20.0)
[2018-07-22 11:46] LABS: POTASSIUM 3.2 mmol/L (3.6-5.0); SODIUM 142.2 mmol/L (137-145)
[2018-07-22 11:51] LABS: ANION GAP -3 (5-19)
--- NOTE | 2018-07-22 12:13 | ER Document Report ---
ED General - General Chief Complaint: Other Stated Complaint: HEAD ISSUE Time Seen by Provider: 07/22/18 10:22 Mode of Arrival: Ambulatory Notes: Patient is a 32-year-old male who presents to the emergency department stating that his dog licked him in his face and now he thinks that he might have a tapeworm in his forehead. Patient does have known psychiatric history patient also admittedly abuses dextromethorphan daily. Patient denies any fevers, nausea, vomiting, diarrhea or any other physical symptoms. Patient keeps rubbing his forehead stating that he is concerned because he keeps feeling a sensation of something moving across his forehead. Patient denies any suicidal or homicidal thoughts. TRAVEL OUTSIDE OF THE [place] IN LAST 30 DAYS: No - Related Data Allergies/Adverse Reactions: No Known Allergies Allergy (Verified 07/22/18 10:01) Past Medical History - General Information source: Patient - Social History Smoking Status: Current Every Day Smoker Chew tobacco use (# tins/day): No Frequency of alcohol use: None Drug Abuse: Prescription drugs Family History: DM, Hypertension, Other - History of thromboembolic disease Patient has suicidal ideation: No Patient has homicidal ideation: No - Past Medical History Cardiac Medical History: Reports: Hx Hypertension Denies: Hx Heart Attack Pulmonary Medical History: Denies: Hx Asthma, Hx Bronchitis, Hx COPD, Hx Pneumonia Neurological Medical History: Denies: Hx Seizures Endocrine Medical History: Reports: Hx Diabetes Mellitus Type 2 Renal/ Medical History: Reports: Hx Kidney Stones. Denies: Hx Peritoneal Dialysis GI Medical History: Reports: Hx Gastroesophageal Reflux Disease, Hx Ulcer Musculoskeletal Medical History: Denies Hx Arthritis, Reports Hx Musculoskeletal Trauma Psychiatric Medical History: Reports: Hx Bipolar Disorder, Hx Depression Traumatic Medical History: Reports: Hx Fractures - Immunizations Immunizations up to date: No Hx Diphtheria, Pertussis, Tetanus Vaccination: No Review of Systems - Review of Systems Constitutional: No symptoms reported EENT: No symptoms reported Cardiovascular: No symptoms reported Respiratory: No symptoms reported Gastrointestinal: No symptoms reported Genitourinary: No symptoms reported Male Genitourinary: No symptoms reported Musculoskeletal: No symptoms reported Skin: See HPI Hematologic/Lymphatic: No symptoms reported Neurological/Psychological: See HPI Physical Exam - Vital signs Vitals: Temp Pulse Resp BP Pulse Ox 98.5 F 111 H 18 141/105 H 97 07/22/18 10:08 07/22/18 10:08 07/22/18 10:08 07/22/18 10:08 07/22/18 10:08 - Notes Notes: PHYSICAL EXAMINATION: GENERAL: Well-appearing, well-nourished and in no acute distress. HEAD: Atraumatic, normocephalic. EYES: Pupils equal round and reactive to light, extraocular movements intact, sclera anicteric, conjunctiva are normal. ENT: Nares patent, oropharynx clear without exudates. Moist mucous membranes. NECK: Normal range of motion, supple without lymphadenopathy LUNGS: Breath sounds clear to auscultation bilaterally and equal. No wheezes rales or rhonchi. HEART: Regular rate and rhythm without murmurs ABDOMEN: Soft, nontender, nondistended abdomen. No guarding, no rebound. No masses appreciated. Musculoskeletal: Normal range of motion, no pitting or edema. No cyanosis. NEUROLOGICAL: Cranial nerves grossly intact. Normal speech, normal gait. Normal sensory, motor exams PSYCH: Normal mood, normal affect. SKIN: Warm, Dry, normal turgor, no rashes or lesions noted. Course - Re-evaluation Re-evalutation: Patient's physical examination is unremarkable. Patient is calm, cooperative and currently denies any suicidal or homicidal thoughts. Patient does report that he uses dextromethorphan daily, he states he took approximately 50 tablets 12 hours ago trying to get high. Patient has been seen here multiple times for this. Patient adamantly denies any suicide intention, he just likes to get high. Patient was initially seen by provider in triage who initiated the lab workup as well as a psych consult. Patient does have some derangements in his laboratory findings however when compared with patient's previous labs over the last several months his laboratory studies are at his baseline. Patient appears well however he does appear to be worried about this sensation he is feeling across his forehead. Patient is neurologically intact and denies any numbness, tingling or weakness. No indication for any further workup. Patient was seen by psychiatric provider and cleared from their perspective. Patient will be discharged home in stable condition. - Vital Signs Vital signs: Temp Pulse Resp BP Pulse Ox 98.3 F 104 H 18 170/123 H 97 07/22/18 14:15 07/22/18 14:15 07/22/18 10:08 07/22/18 14:15 07/22/18 10:08 - Laboratory Result Diagrams: 07/22/18 10:47 07/22/18 10:47 Laboratory results interpreted by me: 07/22/18 07/22/18 07/22/18 10:47 10:47 10:47 Seg Neutrophils % 80.5 H Lymphocytes % 12.2 L Potassium 3.2 L Chloride 129 H Carbon Dioxide 16 L Anion Gap -3 L Creatinine 1.72 H Est GFR ( Amer) 55 L Est GFR (Non-Af Amer) 46 L Glucose 115 H Total Bilirubin 1.7 H Direct Bilirubin 1.7 H ALT 11 L Urine Protein 100 H Urine Bilirubin MODERATE H Salicylates < 1.0 L Acetaminophen < 10 L Discharge - Discharge Clinical Impression: Tactile hallucination Condition: Stable Disposition: HOME, SELF-CARE Additional Instructions: Your workup today was normal. All of your tests that were ordered showed no acute abnormality. You may try taking some [id number] Benadryl for any itching or sensation of something crawling on you. This may help with the symptoms.
[2018-07-22 14:21] VITALS: BP 170/123
--- NOTE | 2018-07-22 17:23 | EKG REPORT ---
SEVERITY:- ABNORMAL ECG - SINUS RHYTHM BIATRIAL ABNORMALITIES IVCD, CONSIDER ATYPICAL RBBB : Confirmed by: Rajni Robbins MD 22-Jul-2018 17:23:12
== END 2018-07-22 14:22 | disposition home or self-care (01) ==
LOC: ER 09:57
DX: R44.2 Other hallucinations (principal); Z79.899 Other long term (current) drug therapy; F17.200 Nicotine dependence, unspecified, uncomplicated; I10 Essential (primary) hypertension; E11.9 Type 2 diabetes mellitus without complications
CPT/HCPCS: 36415; 80053; 80307; 81001; 85025; 93005; 93010; 99285

== ENCOUNTER 2018-07-26 16:33 | Emergency (ER) | payer SELFPAY ==
[2018-07-26 18:35] VITALS: BP 152/97
[2018-07-26] MEDS ORDERED: KETOROLAC TROMETHAMINE 60 MG/2 ML SDV IM ONE (18:50)
[2018-07-26] MEDS ORDERED: ACETAMINOPHEN 325 MG TABLET PO ONE (18:50)
[2018-07-26] MEDS ORDERED: LIDOCAINE 5% (700 MG) TRANSDERMAL ADH..PATCH TP ONE (18:50)
--- NOTE | 2018-07-26 19:00 | ER Document Report ---
ED General - General Chief Complaint: Neck Pain >24hrs old Stated Complaint: THROAT PAIN Time Seen by Provider: 07/26/18 18:27 Notes: Patient is a 32-year-old male with past medical history of chronic dextromethorphan abuse who presents with concerns of intermittent left-sided neck and shoulder pain ongoing for the past several weeks. The patient reports that this pain occurs after he uses the cough medicine, often 90 tablets of the suaf-ens-fuxhrei version and begins having spasms or twitching episodes. He describes the pain as being a throbbing, stabbing, aching pain to the affected area. He states that it generally resolves spontaneously as long as he does not continue to use the medication. He denies any history of IV drug use. No fever or constitutional symptoms. No difficulty swallowing or breathing. He does not have a primary care doctor. Nothing is new or different about his pain that prompted a visit to the emergency department today. TRAVEL OUTSIDE OF THE [place] IN LAST 30 DAYS: No - Related Data Allergies/Adverse Reactions: No Known Allergies Allergy (Verified 07/22/18 10:01) Past Medical History - General Information source: Patient - Social History Smoking Status: Current Every Day Smoker Chew tobacco use (# tins/day): No Frequency of alcohol use: None Drug Abuse: Other - Dextromethorphan Lives with: Family Family History: DM, Hypertension, Other - History of thromboembolic disease Patient has suicidal ideation: No Patient has homicidal ideation: No - Past Medical History Cardiac Medical History: Reports: Hx Hypertension Denies: Hx Heart Attack Pulmonary Medical History: Denies: Hx Asthma, Hx Bronchitis, Hx COPD, Hx Pneumonia Neurological Medical History: Denies: Hx Seizures Endocrine Medical History: Reports: Hx Diabetes Mellitus Type 2 Renal/ Medical History: Reports: Hx Kidney Stones. Denies: Hx Peritoneal Dialysis GI Medical History: Reports: Hx Gastroesophageal Reflux Disease, Hx Ulcer Musculoskeletal Medical History: Denies Hx Arthritis, Reports Hx Musculoskeletal Trauma Psychiatric Medical History: Reports: Hx Bipolar Disorder, Hx Depression Traumatic Medical History: Reports: Hx Fractures - Immunizations Immunizations up to date: No Hx Diphtheria, Pertussis, Tetanus Vaccination: No Review of Systems - Review of Systems Notes: Constitutional: Negative for fever. HENT: Negative for sore throat. Eyes: Negative for visual changes. Cardiovascular: Negative for chest pain. Respiratory: Negative for shortness of breath. Gastrointestinal: Negative for abdominal pain, vomiting or diarrhea. Genitourinary: Negative for dysuria. Musculoskeletal: Positive for left-sided neck and left trapezius pain Skin: Negative for rash. Neurological: Negative for headaches, weakness or numbness. 10 point ROS negative except as marked above and in HPI. Physical Exam - Vital signs Vitals: Temp Pulse Resp BP Pulse Ox 98.9 F 132 H 18 155/110 H 96 07/26/18 16:41 07/26/18 16:41 07/26/18 16:41 07/26/18 16:41 07/26/18 16:41 Interpretation: Hypertensive, Tachycardic Notes: PHYSICAL EXAMINATION: GENERAL: Well-appearing, well-nourished and in no acute distress. HEAD: Atraumatic, normocephalic. EYES: Pupils equal round and reactive to light, extraocular movements intact, sclera anicteric, conjunctiva are normal. ENT: nares patent, oropharynx clear without exudates. Moist mucous membranes. NECK: Normal range of motion, supple without lymphadenopathy LUNGS: Breath sounds clear to auscultation bilaterally and equal. No wheezes rales or rhonchi. HEART: Regular rate and rhythm without murmurs ABDOMEN: Soft, nontender, normoactive bowel sounds. No guarding, no rebound. No masses appreciated. EXTREMITIES: Normal range of motion, pain on palpation of the left-sided trapezius and with range of motion of the left shoulder, no pitting or edema. No cyanosis. NEUROLOGICAL: No focal neurological deficits. Moves all extremities spontaneously and on command. PSYCH: Anxious, tearful SKIN: Warm, Dry, normal turgor, no rashes or lesions noted. Course - Re-evaluation Re-evalutation: 07/26/18 19:00 Patient presents with left-sided sternocleidomastoid and trapezius muscle pain likely associated with muscle spasming in the setting of recurrent dexamethasone abuse. Patient states that these pains only occur after abuse of dextromethorphan and he states that he "twitches and tweeks" his neck and body while under the influence of this drug and thereafter begins to develop the pain. Patient was initially markedly tachycardic although this is resolved at the time of my assessment. The heart rate is at 98. The patient has no focal swelling, erythema or induration to the area. No stridor. Normal range of neck motion. No midline cervical spine tenderness, step-offs or deformities. No fever or constitutional symptoms. Patient states that he has been having these symptoms for weeks and I do resolve when he discontinues his drug abuse. I suspect that the patient is straining his muscles in the context of dextromethorphan abuse. No indication for labs or imaging at this time. He does not use IV drugs. I do not suspect a spinal abscess, deep space infection, or meningitis based on exam and history. We have had an extended conversation about the need to discontinue his drug abuse habits. Of note, patient did elope prior to receiving ordered medications or reassessments. - Vital Signs Vital signs: Temp Pulse Resp BP Pulse Ox 98.9 F 132 H 16 152/97 H 99 07/26/18 16:41 07/26/18 16:41 07/26/18 18:28 07/26/18 18:28 07/26/18 18:28 Discharge - Discharge Clinical Impression: Neck pain on left side, Dextromethorphan abuse Condition: Good Disposition: HOME, SELF-CARE Additional Instructions: You need to discontinue abuse of dextromethorphan as we discussed today. Your neck pain is likely coming from spasms of your neck with abuse of this drug. For your pain: Take ibuprofen 600 mg and acetaminophen 1000 mg every 6 hours together as needed for pain. You can also apply heat to the area. Return if you develop fever, worsening of your pain, weakness, numbness, or any other symptoms that are worrisome to you.
== END 2018-07-26 19:28 | disposition home or self-care (01) ==
LOC: ER 16:33
DX: M54.2 Cervicalgia (principal); F19.10 Other psychoactive substance abuse, uncomplicated; M25.512 Pain in left shoulder; I10 Essential (primary) hypertension; E11.9 Type 2 diabetes mellitus without complications; M79.18 Myalgia, other site; F17.200 Nicotine dependence, unspecified, uncomplicated
CPT/HCPCS: 99283